=== PATIENT | female | born 1990 | race Caucasian/White ===

== ENCOUNTER 2018-02-24 19:14 | Emergency (ER) | payer BC ==
[~2018-02-24] VITALS: Ht 172.7 cm; Wt 99.8 kg
[~2018-02-24 19:14] MED LIST: DICY10CA26 PO; [UNRECOGNIZED DRUG - REMARK]
--- NOTE | 2018-02-24 19:49 | ED Headache ---
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 Pt had fever on evening up to 101.7 but remains afebrile today. Pt has pain behind eyes and posterior head down the neck. Nursing Sepsis Screen: No Definite Risk Source: patient History of Present Illness Date Seen by Provider: Feb 24, 2018 Time Seen by Provider: 19:45 Initial Comments The patient is a 27-year-old white female diagnosed with pseudotumor cerebri in 2012. She has had 8 revisions of a lumbar peritoneal shunt. The last of these was done on Tuesday of this week. She reports that as of Tuesday she was running a low-grade fever and having a headache. She has no fever today but continues to have the headache which at times is explosive. She is had this experience before when the shunt was dislodged. Timing/Duration: 1 week Severity/Quality: moderate Location: global Allergies and Home Medications Allergies Coded Allergies: No Known Drug Allergies (Unverified , 01/26/10) Home Medications Dicyclomine Hcl 10 Mg Capsule, 1 EACH PO ACHS Prescribed by: INGRIS LEDESMA on 12/18/13 1440 Patient Home Medication List Home Medication List Reviewed: Yes Review of Systems Constitutional: see HPI Eyes: Blurred Vision Ears, Nose, Mouth, Throat: no symptoms reported Respiratory: no symptoms reported Cardiovascular: no symptoms reported Gastrointestinal: no symptoms reported Genitourinary: no symptoms reported Musculoskeletal: no symptoms reported Skin: no symptoms reported Psychiatric/Neurological: No Symptoms Reported Past Afeeocp-Mhbrif-Lrgdlh Hx Patient Social History Alcohol Use: Rarely Uses Recreational Drug Use: No Smoking Status: Former Smoker Type Used: Cigarettes Recent Foreign Travel: No Contact w/Someone Who Travel: No Recent Infectious Disease Expo: No Recent Hopitalizations: No Seasonal Allergies Seasonal Allergies: No Past Medical History Surgeries: Yes ( shunt-pseudo tumor cerebri, bariatric surgery) Brain Shunt Respiratory: No Cardiac: No Neurological: No Reproductive Disorders: No Sexually Transmitted Disease: No Gastrointestinal: No Musculoskeletal: No Endocrine: No HEENT: No Cancer: No Psychosocial: No Integumentary: No Blood Disorders: No Adverse Reaction/Blood Tranf: No Physical Exam Vital Signs Vital Signs - First Documented 02/24/18 19:21 Temp 97.9 Pulse 72 Resp 20 B/P (MAP) 133/85 (101) Pulse Ox 100 O2 Delivery Room Air Capillary Refill : Less Than 3 Seconds Height, Weight, BMI Height: 5'8" Weight: 220lbs. oz. 99.604719bk; 42.57 BMI Method:Stated General Appearance: mild distress HEENT: PERRL/EOMI Neck: full range of motion Cardiovascular: normal peripheral pulses, regular rate, rhythm, no edema, no gallop, no JVD, no murmur Respiratory: chest non-tender, lungs clear, normal breath sounds, no respiratory distress, no accessory muscle use Gastrointestinal: normal bowel sounds, non tender, soft, no organomegaly, no pulsatile mass Extremities: normal range of motion, non-tender, normal inspection, no pedal edema, no calf tenderness, normal capillary refill, pelvis stable Psychiatric: alert, oriented x 3 Crainal Nerves: normal hearing, normal speech, PERRL Coordination/Gait: normal finger to nose, normal gait Motor/Sensory: no motor deficit, no sensory deficit Skin: normal color, warm/dry Lymphatic: no adenopathy Comments There is a 6 cm vertically oriented fresh incision in the lower lumbar area. There is a palpable shunt angling across the left pelvis to the abdomen. Progress/Results/Core Measures Results/Orders Lab Results Laboratory Tests Test 02/24/18 19:45 02/24/18 19:50 Range/Units Urine Color YELLOW Urine Clarity VERY CLOUDY H Urine pH 6 5-9 Urine Specific [place] 1.025 H 1.016-1.022 Urine Protein 2+ H NEGATIVE Urine Glucose (UA) NEGATIVE NEGATIVE Urine Ketones 2+ H NEGATIVE Urine Nitrite NEGATIVE NEGATIVE Urine Bilirubin NEGATIVE NEGATIVE Urine Urobilinogen 12 H NORMAL MG/DL Urine Leukocyte Esterase 3+ H NEGATIVE Urine RBC (Auto) 1+ H NEGATIVE Urine RBC NONE /HPF Urine WBC 2-5 /HPF Urine Crystals PRESENT H /LPF Urine Calcium Oxalate Crystals LARGE H /LPF Urine Bacteria LARGE H /HPF Urine Casts NONE /LPF Urine Mucus LARGE H /LPF Urine Culture Indicated YES White Blood Count 10.6 4.3-11.0 10^3/uL Red Blood Count 3.98 L 4.35-5.85 10^6/uL Hemoglobin 12.5 11.5-16.0 G/DL Hematocrit 36 35-52 % Mean Corpuscular Volume 91 80-99 FL Mean Corpuscular Hemoglobin 31 25-34 PG Mean Corpuscular Hemoglobin Concent 35 32-36 G/DL Red Cell Distribution Width 12.5 10.0-14.5 % Platelet Count 307 130-400 10^3/uL Mean Platelet Volume 10.7 H 7.4-10.4 FL Neutrophils (%) (Auto) 58 42-75 % Lymphocytes (%) (Auto) 34 12-44 % Monocytes (%) (Auto) 7 0-12 % Eosinophils (%) (Auto) 1 0-10 % Basophils (%) (Auto) 0 0-10 % Neutrophils # (Auto) 6.1 1.8-7.8 X 10^3 Lymphocytes # (Auto) 3.6 1.0-4.0 X 10^3 Monocytes # (Auto) 0.8 0.0-1.0 X 10^3 Eosinophils # (Auto) 0.1 0.0-0.3 10^3/uL Basophils # (Auto) 0.0 0.0-0.1 10^3/uL Sodium Level 140 135-145 MMOL/L Potassium Level 4.1 3.6-5.0 MMOL/L Chloride Level 107 98-107 MMOL/L Carbon Dioxide Level 23 21-32 MMOL/L Anion Gap 10 5-14 MMOL/L Blood Urea Nitrogen 8 7-18 MG/DL Creatinine 0.66 0.60-1.30 MG/DL Estimat Glomerular Filtration Rate > 60 BUN/Creatinine Ratio 12 Glucose Level 90 70-105 MG/DL Calcium Level 9.7 8.5-10.1 MG/DL Total Bilirubin 0.5 0.1-1.0 MG/DL Aspartate Amino Transf (AST/SGOT) 32 5-34 U/L Alanine Aminotransferase (ALT/SGPT) 31 0-55 U/L Alkaline Phosphatase 71 40-136 U/L Total Protein 6.8 6.4-8.2 GM/DL Albumin 4.0 3.2-4.5 GM/DL My Orders Orders - RYNE REY MD Cbc With Automated Diff (02/24/18 19:33) Comprehensive Metabolic Panel (02/24/18 19:33) Ua Culture If Indicated (02/24/18 19:33) Urine Bedside (02/24/18 19:54) Ct Pelvis Wo (02/24/18 19:58) Urine Culture (02/24/18 19:45) Ns Iv 1000 Ml (Sodium Chloride 0.9%) (02/24/18 20:45) Vital Signs/I&O 02/24/18 19:21 Temp 97.9 Pulse 72 Resp 20 B/P (MAP) 133/85 (101) Pulse Ox 100 O2 Delivery Room Air Blood Pressure Mean: 101 Departure Communication (Admissions) 2120. The CT films were reviewed by me and Dr. Valentin. It was our conclusion that the catheter appeared to be in appropriate position. The reading from the radiology service also agreed with this opinion. I then placed a call to [facility] as she had her surgery there. After giving history to the transfer nurse, she was seen in correspondence with neurosurgery. They also felt that her device was in appropriate position. Her urine specific gravity was elevated at 1.025 and therefore she is thought to be dehydrated. The plan from the point of view would be that she return for an appointment on Wednesday 02/28. She is agreeable to this. 2128: Dr. Mccray of the neurosurgery service called back and reiterated the points as above. Impression Primary Impression: spinal headache Disposition: HOME, SELF-CARE Condition: Stable/Unchanged Departure-Patient Inst. Decision time for Depature: 21:21 Referrals: RAJ HOOKER DO (PCP/Family) Primary Care Physician Add. Discharge Instructions: All discharge instructions reviewed with patient and/or family. Voiced understanding. Rest. Aggressive rehydration. Appointment at [facility] on 02/28 Return if problems RYNE REY MD Feb 24, 2018 19:49
[2018-02-24 19:51] LABS: BILIRUBIN,URINE NEGATIVE (NEGATIVE); CLARITY,URINE VERY CLOUDY; COLOR,URINE YELLOW; GLUCOSE, URINE (UA) NEGATIVE (NEGATIVE); KETONES,URINE 2+ (NEGATIVE); LEUKOCYTE ESTERASE ,URINE 3+ (NEGATIVE); NITRITE,URINE NEGATIVE (NEGATIVE); PH,URINE 6 (5-9); PROTEIN,URINE 2+ (NEGATIVE); UROBILINOGEN,URINE 12 MG/DL (NORMAL)
[2018-02-24 20:01] LABS: BASOPHILS % (AUTO) 0 % (0-10); EOSINOPHILS # (AUTO) 0.1 10^3/uL (0.0-0.3); EOSINOPHILS % (AUTO) 1 % (0-10); HEMATOCRIT 36 % (35-52); HEMOGLOBIN 12.5 G/DL (11.5-16.0); LYMPHOCYTES # (AUTO) 3.6 X 10^3 (1.0-4.0); LYMPHOCYTES % (AUTO) 34 % (12-44); MEAN CORPUSCULAR HEMOGLOBIN 31 PG (25-34); MEAN CORPUSCULAR HGB CONC 35 G/DL (32-36); MEAN CORPUSCULAR VOLUME 91 FL (80-99); MEAN PLATELET VOLUME 10.7 FL (7.4-10.4); MONOCYTES # (AUTO) 0.8 X 10^3 (0.0-1.0); MONOCYTES % (AUTO) 7 % (0-12); NEUTROPHILS # (AUTO) 6.1 X 10^3 (1.8-7.8); NEUTROPHILS % (AUTO) 58 % (42-75); PLATELET COUNT 307 10^3/uL (130-400); RED BLOOD COUNT 3.98 10^6/uL (4.35-5.85); RED CELL DISTRIBUTION WIDTH 12.5 % (10.0-14.5); WHITE BLOOD COUNT 10.6 10^3/uL (4.3-11.0)
[2018-02-24 20:04] LABS: BACTERIA,URINE LARGE /HPF; CALCIUM OXALATE CRYSTALS,UR LARGE /LPF
[2018-02-24 20:25] LABS: ALANINE AMINOTRANSFERASE 31 U/L (0-55); ALKALINE PHOSPHATASE 71 U/L (40-136); BILIRUBIN,TOTAL 0.5 MG/DL (0.1-1.0); BUN/CREATININE RATIO 12; CALCIUM 9.7 MG/DL (8.5-10.1); CARBON DIOXIDE 23 MMOL/L (21-32); CHLORIDE 107 MMOL/L (98-107); CREATININE SERUM 0.66 MG/DL (0.60-1.30); GFR ESTIMATED > 60; GLUCOSE 90 MG/DL (70-105); POTASSIUM 4.1 MMOL/L (3.6-5.0); SODIUM 140 MMOL/L (135-145); TOTAL PROTEIN 6.8 GM/DL (6.4-8.2)
[2018-02-24] MEDS ORDERED: NS IV 1000 ML 1,000 ML IV SCH (20:45)
--- NOTE | 2018-02-24 20:58 | Diagnostic Imaging Report ---
Clinical indication: Patient shunt revision surgery four days ago. Patient feeling pressure in head since then. Exam: CT scan of the pelvis performed without IV contrast with sagittal and coronal reformatted images. Comparison: CT scan of the abdomen and pelvis performed with IV contrast dated 12/18/2013. Findings: There is a metallic device overlying the right of midline aspect of the lower back deep subcutaneous fat at the level of the L3-L4 level. There is drain tubing extending through the L2-L3 interlaminar region and is incompletely visualized as it extends superiorly. There is also a component of the tubing extending along the left lateral aspect of the abdomen and entering the peritoneal region through the left side of the abdomen anteriorly. The distal aspect of the drain is seen in the pelvis. There is a small amount of free fluid in the pelvis seen. There is no definite CSFoma seen. There is no significant fat stranding or free air in the pelvis, as visualized. There is minimal spurring of the lower lumbar spine. There is a small fluid collection, posteriorly, about this metallic device in the deep subcutaneous fat of the lower back area. There is also some peripheral thickening noted. Given history of recent surgery, this may represent a seroma. There is density of the soft tissue extending posteriorly to the skin. There is suspected dependent edema in the posterior lower lumbar fat soft tissue. IMPRESSION: Lumbar peritoneal shunt drain seen with components appearing in good position. There is a small amount of fluid around the drain valve region suspected to represent seroma. Dictated by: Dictated on workstation # [id number]
[2018-02-24 21:30] VITALS: BP 125/80
--- OUTSIDE RECORDS SUMMARY | 2018-02-26 07:03 | XMS REPORT ---
Author Author NATALI ZHU Organization [facility] Address [address] [place] [address] Care Team Providers Care Water And Fire Technician Name Role Phone NATALI ZHU Unavailable PROBLEMS Type Condition ICD9-CM Code DUN15-XW Code Onset Dates Condition Status SNOMED Code Problem Acute seasonal allergic rhinitis, unspecified trigger J30.2 Active [id number] ALLERGIES No Known Allergies ENCOUNTERS Encounter Location Date Diagnosis [facility] [id number] [place] [phone] December, Chronic intractable headache, unspecified headache type R51 [facility] [place] [id number] [place] [phone] Aug, Encounter for immunization Z23 and Laceration of left index finger without foreign body without damage to nail, initial encounter S61.211A [facility] [address] [place] [phone] Jun, Acute seasonal allergic rhinitis, unspecified trigger J30.2 IMMUNIZATIONS Vaccine Route Administration Date Status TDAP (BOOSTRIX) IM Intramuscular Aug 25, 2017 Administered SOCIAL HISTORY Never Assessed 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 pt is unsure on her last tetanus shot. david PLAN OF CARE Activity Details Follow Up 10 days Reason:suture removal VITAL SIGNS Height 68 in 2017-08-25 Weight 298.8 lbs 2017-08-25 Temperature 98.4 degrees Fahrenheit 2017-08-25 Heart Rate 66 bpm 2017-08-25 Respiratory Rate 20 2017-08-25 BMI 45.43 kg/m2 2017-08-25 Blood pressure systolic 128 mmHg 2017-08-25 Blood pressure diastolic 78 mmHg 2017-08-25 MEDICATIONS Medication Instructions Dosage Frequency Start Date End Date Duration Status Prilosec OTC 20 MG Orally Once a day 1 tablet 24h Active Flonase 50 MCG/ACT Nasally Once a day 1 spray in each nostril 24h 17 Jun, 2017 30 day(s) Not-Taking RESULTS No Results PROCEDURES Procedure Date Ordered Result Body Site LACERATION REPAIR 2017-08-25 N/A TDAP (BOOSTRIX) Aug 25, 2017 LACERATION >2CM Aug 25, 2017 SINGLE IMMUNIZATION ADMIN Aug 25, 2017 INSTRUCTIONS MEDICATIONS ADMINISTERED No Known Medications MEDICAL (GENERAL) HISTORY Type Description Date Medical History pseudotumor cerebri Surgical History Mini Gastric Bypass 07/11/2017 Surgical History LP shunt 2012, [facility] Hospitalization History Post Op 07/11/2017
--- OUTSIDE RECORDS SUMMARY | 2018-02-26 07:05 | XMS REPORT | Continuity of Care Document ---
Author Author [facility] Organization [facility] Address Unknown Phone Unavailable Support Name Relationship Address Phone DONG MORGAN Next Of Kin [address], [place] [address] Insurance Providers Payer Name Policy Number Subscriber Name Relationship [facility] [id number] Dong Morgan 03 Mother Advance Directives Directive Response Recorded Date Advance Directives N 01/04/13 1:31pm Health Care Power of Recording Studio Set Up Worker N 01/04/13 1:31pm Organ Donor N 01/04/13 1:31pm Problems No Known Problems or Medical conditions. Allergies, Adverse Reactions, Alerts Allergen Type Severity Reaction Last Updated No Known Drug Allergies 01/26/10 Medications Medication Dose Units Route Sig Qty Days [BCP Pills] Response Recorded Date/Time Status not known Unknown Results No Known Relevant Diagnostic Tests, Laboratory Data and/or Discharge Summary. Procedures Procedure Code Date REMOVAL OF TONSILS 70196 01/29/10 SPINAL FLUID TAP DIAGNOSTIC 84251 Encounters Encounter Location Date/Time Departed Emergency Room [facility] 04/08 11:32am
--- OUTSIDE RECORDS SUMMARY | 2018-02-26 07:07 | XMS REPORT | Continuity of Care Document ---
Author Author [facility] Organization [facility] Address Unknown Phone Unavailable Allergies Active Description Code Type Severity Reaction Onset Reported/Identified Relationship to Patient Clinical Status Yes No Known Drug Allergies [id number] Drug Allergy Unknown N/A 01/26/2010 Yes No Known Allergies NKA Miscellaneous Allergy Unknown N/A 03/04/2016 Medications There is no data. Problems Date Dx Coded Attending Type Code Diagnosis Diagnosed By 05/30/2013 RAJ HOOKER DO Ot 780.54 HYPERSOMNIA, UNSPECIFIED 05/30/2013 RAJ HOOKER DO Ot 786.09 RESPIRATORY ABNORM NEC 12/18/2013 INGRIS LEDESMA TURF SALES PERSON Ot 787.91 DIARRHEA 12/18/2013 INGRIS LEDESMA TURF SALES PERSON Ot 789.09 ABDOMINAL PAIN, OTHER SPECIFIED SITE 03/04/2016 Other S80.02XA 03/04/2016 Other S93.412A 03/04/2016 Other W01.0XXA 03/04/2016 Other Z23 Procedures There is no data. Results Test Result Range Complete urinalysis with reflex to culture - 02/24/18 19:45 Urine color determination YELLOW NRG Urine clarity determination VERY CLOUDY NRG Urine pH measurement by test strip 6 5-9 Specific gravity of urine by test strip 1.025 1.016- 1.022 Urine protein assay by test strip, semi-quantitative 2+ NEGATIVE Urine glucose detection by automated test strip NEGATIVE NEGATIVE Erythrocytes detection in urine sediment by light microscopy 1+ NEGATIVE Urine ketones detection by automated test strip 2+ NEGATIVE Urine nitrite detection by test strip NEGATIVE NEGATIVE Urine total bilirubin detection by test strip NEGATIVE NEGATIVE Urine urobilinogen measurement by automated test strip (mass/volume) 12 mg/dL NORMAL Urine leukocyte esterase detection by dipstick 3+ NEGATIVE Automated urine sediment erythrocyte count by microscopy (number/high power field) NONE NRG Automated urine sediment leukocyte count by microscopy (number/high power field ) [HPF] NRG Bacteria detection in urine sediment by light microscopy LARGE NRG Crystals detection in urine sediment by light microscopy PRESENT NRG Casts detection in urine sediment by light microscopy NONE NRG Mucus detection in urine sediment by light microscopy LARGE NRG Complete urinalysis with reflex to culture YES NRG Calcium oxalate crystals detection in urine sediment by light microscopy LARGE NRG Bacterial urine culture - 02/24/18 19:45 Bacterial urine culture RML NRG COLONY COUNT . NRG Complete blood count (CBC) with automated white blood cell (WBC) differential - 02/24/18 19:50 Blood leukocytes automated count (number/volume) 10.6 10*3/uL 4.3-11.0 Blood erythrocytes automated count (number/volume) 3.98 10*6/uL 4.35-5.85 Venous blood hemoglobin measurement (mass/volume) 12.5 g/dL 11.5-16.0 Blood hematocrit (volume fraction) 36 % 35-52 Automated erythrocyte mean corpuscular volume 91 [foz_us] 80-99 Automated erythrocyte mean corpuscular hemoglobin (mass per erythrocyte) 31 pg 25-34 Automated erythrocyte mean corpuscular hemoglobin concentration measurement ( mass/volume) 35 g/dL 32-36 Automated erythrocyte distribution width ratio 12.5 % 10.0-14.5 Automated blood platelet count (count/volume) 307 10*3/uL 130-400 Automated blood platelet mean volume measurement 10.7 [foz_us] 7.4-10.4 Automated blood neutrophils/100 leukocytes 58 % 42-75 Automated blood lymphocytes/100 leukocytes 34 % 12-44 Blood monocytes/100 leukocytes 7 % 0-12 Automated blood eosinophils/100 leukocytes 1 % 0-10 Automated blood basophils/100 leukocytes 0 % 0-10 Blood neutrophils automated count (number/volume) 6.1 10*3 1.8-7.8 Blood lymphocytes automated count (number/volume) 3.6 10*3 1.0-4.0 Blood monocytes automated count (number/volume) 0.8 10*3 0.0-1.0 Automated eosinophil count 0.1 10*3/uL 0.0-0.3 Automated blood basophil count (count/volume) 0.0 10*3/uL 0.0-0.1 Comprehensive metabolic panel - 02/24/18 19:50 Serum or plasma sodium measurement (moles/volume) 140 mmol/L 135-145 Serum or plasma potassium measurement (moles/volume) 4.1 mmol/L 3.6-5.0 Serum or plasma chloride measurement (moles/volume) 107 mmol/L 98-107 Carbon dioxide 23 mmol/L 21-32 Serum or plasma anion gap determination (moles/volume) 10 mmol/L 5-14 Serum or plasma urea nitrogen measurement (mass/volume) 8 mg/dL 7-18 Serum or plasma creatinine measurement (mass/volume) 0.66 mg/dL 0.60-1.30 Serum or plasma urea nitrogen/creatinine mass ratio 12 NRG Serum or plasma creatinine measurement with calculation of estimated glomerular filtration rate > NRG Serum or plasma glucose measurement (mass/volume) 90 mg/dL 70-105 Serum or plasma calcium measurement (mass/volume) 9.7 mg/dL 8.5-10.1 Serum or plasma total bilirubin measurement (mass/volume) 0.5 mg/dL 0.1-1.0 Serum or plasma alkaline phosphatase measurement (enzymatic activity/volume) 71 U/L 40-136 Serum or plasma aspartate aminotransferase measurement (enzymatic activity/ volume) 32 U/L 5-34 Serum or plasma alanine aminotransferase measurement (enzymatic activity/volume ) 31 U/L 0-55 Serum or plasma protein measurement (mass/volume) 6.8 g/dL 6.4-8.2 Serum or plasma albumin measurement (mass/volume) 4.0 g/dL 3.2-4.5 Encounters ACCT No. Visit Date/Time Discharge Status Pt. Type Provider Facility Loc./Unit Complaint [id number] 02/24/2018 19:16:00 02/24/2018 21:30:00 DIS Emergency RYNE REY MD [facility] ER POST OP/HEAD PRESSURE/ FEVER [id number] 12/18/2013 12:57:00 12/18/2013 14:40:00 DIS Emergency INGRIS LEDESMA APRN [facility] ER UPPER ABD/RIGHT RIB/ SHOULDER PAIN [id number] 05/29/2013 20:09:00 05/30/2013 06:35:00 DIS Outpatient RAJ HOOKER DO [facility] SLEEP SNORING, EXCESSIVE DAYTIME SLEEPINESS [id number] 01/04/2013 12:15:00 01/04/2013 23:59:59 CLS Outpatient [id number] 01/03/2013 07:50:00 01/03/2013 23:59:59 CLS Outpatient [id number] 12/29/2012 09:29:00 12/29/2012 23:59:59 CLS Outpatient [id number] 12/21/2017 17:00:00 12/21/2017 23:59:59 CLS Outpatient HAIR HAMILTON LAC [facility] [id number] 11/03/2015 16:01:00 11/03/2015 23:59:59 CLS Outpatient Telma Travis APRN [facility] OFFICE [id number] 03/04/2016 19:55:00 Document Registration
== END 2018-02-24 21:30 | disposition home or self-care (01) ==
LOC: EDUNIT# 19:14 → ER 19:16
DX: G97.1 Other reaction to spinal and lumbar puncture (principal); Z98.890 Other specified postprocedural states; Z87.891 Personal history of nicotine dependence
CPT/HCPCS: 36415; 72192; 80053; 81000; 84703; 85025; 87088

== ENCOUNTER 2018-04-19 10:01 | Emergency (ER) | payer BC ==
[~2018-04-19] VITALS: Ht 172.7 cm; Wt 93.9 kg
--- OUTSIDE RECORDS SUMMARY | 2018-04-19 10:07 | XMS REPORT ---
Author Author ANUPAM MCINTYRE Organization [facility] Address [address] [place] [address] Care Team Providers Care Small Order Cutter Name Role Phone ANUPAM MCINTYRE Unavailable PROBLEMS Type Condition ICD9-CM Code PXW33-CG Code Onset Dates Condition Status SNOMED Code Problem Acute seasonal allergic rhinitis, unspecified trigger J30.2 Active [id number] ALLERGIES No Known Allergies ENCOUNTERS Encounter Location Date Diagnosis [facility] [address] [place], [place] [id number] [place] [phone] December, Chronic intractable headache, unspecified headache type R51 [facility] [address] [place], [place] [id number] [place] [phone] Aug, Encounter for immunization Z23 and Laceration of left index finger without foreign body without damage to nail, initial encounter S61.211A [facility] [address] [place] [phone] Jun, Acute seasonal allergic rhinitis, unspecified trigger J30.2 IMMUNIZATIONS Vaccine Route Administration Date Status TORADOL (IM) 60 MG/2ML (UP TO 15 MG) IM Intramuscular December 21, 2017 Administered SOCIAL HISTORY Never Assessed REASON FOR VISIT Migraine for the past 2 weeks- [facility] Activity Details Follow Up 1 Week Reason:headaches VITAL SIGNS Height 68 in 2017-12-21 Weight 241.0 lbs 2017-12-21 Temperature 98.3 degrees Fahrenheit 2017-12-21 Heart Rate 64 bpm 2017-12-21 Respiratory Rate 22 2017-12-21 BMI 36.64 kg/m2 2017-12-21 Blood pressure systolic 106 mmHg 2017-12-21 Blood pressure diastolic 70 mmHg 2017-12-21 MEDICATIONS Medication Instructions Dosage Frequency Start Date End Date Duration Status Flonase Allergy Relief 50 MCG/ACT Nasally Once a day 1 spray in each nostril 24h Active RESULTS No Results PROCEDURES Procedure Date Ordered Result Body Site TORADOL (IM) 60 MG/2ML (UP TO 15 MG) December 21, 2017 THER/PROPH/DIAG INJ, SC/IM December 21, 2017 INSTRUCTIONS MEDICATIONS ADMINISTERED No Known Medications MEDICAL (GENERAL) HISTORY Type Description Date Medical History pseudotumor cerebri Surgical History Mini Gastric Bypass 07/11/2017 Surgical History LP shunt 2012, [facility] Hospitalization History Post Op 07/11/2017
--- OUTSIDE RECORDS SUMMARY | 2018-04-19 10:09 | XMS REPORT | Continuity of Care Document ---
Author Author [facility] Organization [facility] Address Unknown Phone Unavailable Allergies Active Description Code Type Severity Reaction Onset Reported/Identified Relationship to Patient Clinical Status Yes No Known Drug Allergies [id number] Drug Allergy Unknown N/A 01/26/2010 Yes No Known Allergies NKA Miscellaneous Allergy Unknown N/A 03/04/2016 Medications There is no data. Problems Date Dx Coded Attending Type Code Diagnosis Diagnosed By 05/30/2013 RAJ HOOKER DO Ot 780.54 HYPERSOMNIA, UNSPECIFIED 05/30/2013 RAJ HOOKER DO Ot 786.09 RESPIRATORY ABNORM NEC 12/18/2013 INGRIS LEDESMA MUD ANALYSIS WELL LOGGING OPERATOR Ot 787.91 DIARRHEA 12/18/2013 INGRIS LEDESMA MUD ANALYSIS WELL LOGGING OPERATOR Ot 789.09 ABDOMINAL PAIN, OTHER SPECIFIED SITE 03/04/2016 Other S80.02XA 03/04/2016 Other S93.412A 03/04/2016 Other W01.0XXA 03/04/2016 Other Z23 02/24/2018 RYNE REY MD Ot G97.1 OTHER REACTION TO SPINAL AND LUMBAR PUNC 02/24/2018 RYNE REY MD Ot R51 HEADACHE 02/24/2018 RYNE REY MD Ot Z87.891 PERSONAL HISTORY OF NICOTINE DEPENDENCE 02/24/2018 RYNE REY MD Ot Z98.890 OTHER SPECIFIED POSTPROCEDURAL STATES Procedures There is no data. Results Test [...] culture - 02/24/18 19:45 Bacterial urine culture SEE COMMEN NRG COLONY COUNT . NRG Complete blood [...] Status Pt. Type Provider Facility Loc./Unit Complaint [id number] 02/24/2018 19:16:00 02/24/2018 21:30:00 DIS Emergency RYNE REY MD [facility] ER POST OP/HEAD PRESSURE/ FEVER [id number] 12/18/2013 12:57:00 12/18/2013 14:40:00 DIS Emergency INGRIS LEDESMA APRN [facility] ER UPPER ABD/RIGHT RIB/ SHOULDER PAIN [id number] 05/29/2013 20:09:00 05/30/2013 06:35:00 DIS Outpatient RAJ HOOKER DO [facility] SLEEP SNORING, EXCESSIVE DAYTIME SLEEPINESS [id number] 01/04/2013 12:15:00 01/04/2013 23:59:59 CLS Outpatient [id number] 01/03/2013 07:50:00 01/03/2013 23:59:59 CLS Outpatient [id number] 12/29/2012 09:29:00 12/29/2012 23:59:59 CLS Outpatient [id number] 12/21/2017 17:00:00 12/21/2017 23:59:59 CLS Outpatient ALFONSO HAIR [facility] [id number] 11/03/2015 16:01:00 11/03/2015 23:59:59 CLS Outpatient Telma Travis [facility] OFFICE [id number] 03/04/2016 19:55:00 Document Registration
--- NOTE | 2018-04-19 10:44 | ED Back Pain ---
General Chief Complaint: Back Problems Stated Complaint: BACK INCISION OPENED UP--SPINAL FLUID LEAKING Nursing Triage Note: PT STATES HAVING PSEUDO TUMOR CEREBRI FOR ABOUT 5 YRS, PT HAD A SHUNT REMOVED FROM HER BACK ON 02/20/18 AND HAS HAD A KNOT AT THE INCISION, TODAY WHILE GETTING INTO HER CAR IT OPENED AND BEGAN LEAKING FLUID. NOT LEAKING AT TRIAGE, GAUZE BANDAGE APPLIED. PT STATES HAVING A HEADACHE RATED AT 3. Nursing Sepsis Screen: No Definite Risk Source of Information: Patient Exam Limitations: No Limitations History of Present Illness Date Seen by Provider: Apr 19, 2018 Time Seen by Provider: 10:40 Initial Comments To ER with reports of leaking incision. She's got a history of pseudotumor cerebri and has had a shunt placed in the lumbar spine. She had bariatric surgery and no longer had an issue with headaches and pseudotumor cerebri. She had a shunt removed on 02/20/18. Since then she's had a bulging area over the lumbar spine. Today while twisting to get into her car she felt her pants and shirt get wet in this area and noticed that the bulge was gone. There is a persistent leak of clear fluid overlying the incision the lumbar spine. Location: Lumbar Spine Timing/Duration: 1-2 Days Severity: Moderate Pain/Injury Location: Back Associated Symptoms: No numbness in legs/feet, No tingling in legs/feet Allergies and Home Medications Allergies Coded Allergies: No Known Drug Allergies (Unverified , 01/26/10) Home Medications Dicyclomine Hcl 10 Mg Capsule, 1 EACH PO ACHS Prescribed by: INGRIS LEDESMA on 12/18/13 1440 Patient Home Medication List Home Medication List Reviewed: Yes Review of Systems Constitutional: see HPI; No chills, No fever EENTM: see HPI Respiratory: no symptoms reported Cardiovascular: no symptoms reported Genitourinary: no symptoms reported Musculoskeletal: see HPI, back pain Skin: no symptoms reported Psychiatric/Neurological: No Symptoms Reported Past Gqlhthj-Nkqong-Vxdwry Hx Patient Social History Alcohol Use: Rarely Uses Alcohol Beverage of Choice: Wine Recreational Drug Use: No Smoking Status: Current Someday Smoker Type Used: Cigarettes Recent Foreign Travel: No Contact w/Someone Who Travel: No Recent Infectious Disease Expo: No Recent Hopitalizations: No Seasonal Allergies Seasonal Allergies: No Past Medical History Surgeries: Yes (LP shunt-pseudo tumor cerebri, bariatric surgery) Adenoidectomy, Brain Shunt, Tonsillectomy Respiratory: No Cardiac: No Neurological: No : No Last Menstrual Period: Mar 28, 2018 Reproductive Disorders: No Sexually Transmitted Disease: No Gastrointestinal: No Musculoskeletal: No Endocrine: No HEENT: No Cancer: No Psychosocial: No Integumentary: No Blood Disorders: No Adverse Reaction/Blood Tranf: No Physical Exam Vital Signs Vital Signs - First Documented 04/19/18 10:10 Temp 98.8 Pulse 70 Resp 20 B/P (MAP) 126/84 (98) Pulse Ox 97 O2 Delivery Room Air Capillary Refill : Less Than 3 Seconds Height, Weight, BMI Height: 5'8.00" Weight: 207lbs. oz. 93.636215xw; 42.57 BMI Method:Stated General Appearance: No Apparent Distress, WD/WN HEENT: PERRL/EOMI, TMs Normal Neck: Full Range of Motion, Normal Inspection Respiratory: Normal Breath Sounds, No Accessory Muscle Use, No Respiratory Distress Gastrointestinal: Normal Bowel Sounds, Non Tender, Soft Extremity: Normal Capillary Refill, Normal Inspection Neurologic/Psychiatric: Alert, Oriented x3 Skin: Normal Color, Warm/Dry, Other (there is an incision over the middle of the lumbar spine. This is clean and without erythema. At the inferior portion of this incision there is a very small area that is open. Clear fluid is able to be expressed. This does not appear yellowish or reddish as with a seroma. The overlying skin shows no sign of infection) Progress/Results/Core Measures Results/Orders Lab Results Laboratory Tests Test 04/19/18 11:05 Range/Units White Blood Count 8.8 4.3-11.0 10^3/uL Red Blood Count 4.47 4.35-5.85 10^6/uL Hemoglobin 14.0 11.5-16.0 G/DL Hematocrit 41 35-52 % Mean Corpuscular Volume 91 80-99 FL Mean Corpuscular Hemoglobin 31 25-34 PG Mean Corpuscular Hemoglobin Concent 35 32-36 G/DL Red Cell Distribution Width 13.6 10.0-14.5 % Platelet Count 279 130-400 10^3/uL Mean Platelet Volume 11.3 H 7.4-10.4 FL Neutrophils (%) (Auto) 59 42-75 % Lymphocytes (%) (Auto) 32 12-44 % Monocytes (%) (Auto) 7 0-12 % Eosinophils (%) (Auto) 1 0-10 % Basophils (%) (Auto) 0 0-10 % Neutrophils # (Auto) 5.2 1.8-7.8 X 10^3 Lymphocytes # (Auto) 2.8 1.0-4.0 X 10^3 Monocytes # (Auto) 0.7 0.0-1.0 X 10^3 Eosinophils # (Auto) 0.1 0.0-0.3 10^3/uL Basophils # (Auto) 0.0 0.0-0.1 10^3/uL My Orders Orders - INGRIS LEDESMA APRN Ct Lumbar Spine W (04/19/18 10:38) Iohexol Injection (Omnipaque 350 Mg/Ml 1 (04/19/18 10:45) Cbc With Automated Diff (04/19/18 11:31) Vital Signs/I&O 04/19/18 04/19/18 10:10 12:33 Temp 98.8 98.8 Pulse 70 59 Resp 20 20 B/P (MAP) 126/84 (98) 130/61 (98) Pulse Ox 97 98 O2 Delivery Room Air Blood Pressure Mean: 98 Departure Communication (Admissions) 1228- I myself am waiting on the [facility] to call back. The patient states that Dr. Owens office just called her and told her to head on up and he would see her in the clinic this afternoon. Impression Primary Impression: Lumbar surgical wound fluid collection Disposition: 01 HOME, SELF-CARE Condition: Stable Departure-Patient Inst. Decision time for Depature: 12:29 Referrals: RAJ HOOKER DO (PCP/Family) Primary Care Physician Patient Instructions: NO INSTRUCTIONS GIVEN Add. Discharge Instructions: Directly to [facility] as scheduled. All discharge instructions reviewed with patient and/or family. Voiced understanding. INGRIS LEDESMA APRN Apr 19, 2018 10:44
[2018-04-19] MEDS ORDERED: IOHEXOL 350 MG/ML 100 ML (OMNIPAQUE 350) VIAL IV ONE (10:45)
[2018-04-19 11:37] LABS: BASOPHILS % (AUTO) 0 % (0-10); EOSINOPHILS # (AUTO) 0.1 10^3/uL (0.0-0.3); EOSINOPHILS % (AUTO) 1 % (0-10); HEMATOCRIT 41 % (35-52); LYMPHOCYTES # (AUTO) 2.8 X 10^3 (1.0-4.0); LYMPHOCYTES % (AUTO) 32 % (12-44); MEAN CORPUSCULAR HEMOGLOBIN 31 PG (25-34); MEAN CORPUSCULAR HGB CONC 35 G/DL (32-36); MEAN CORPUSCULAR VOLUME 91 FL (80-99); MEAN PLATELET VOLUME 11.3 FL (7.4-10.4); MONOCYTES # (AUTO) 0.7 X 10^3 (0.0-1.0); MONOCYTES % (AUTO) 7 % (0-12); NEUTROPHILS # (AUTO) 5.2 X 10^3 (1.8-7.8); NEUTROPHILS % (AUTO) 59 % (42-75); PLATELET COUNT 279 10^3/uL (130-400); RED BLOOD COUNT 4.47 10^6/uL (4.35-5.85); RED CELL DISTRIBUTION WIDTH 13.6 % (10.0-14.5); WHITE BLOOD COUNT 8.8 10^3/uL (4.3-11.0)
--- NOTE | 2018-04-19 12:02 | Diagnostic Imaging Report ---
PROCEDURE: CT lumbar spine with contrast. TECHNIQUE: Multiple contiguous axial images were obtained through the lumbar spine after the intrathecal administration of contrast. Sagittal and coronal reformations were then performed. INDICATION: Patient is status post shunt removal from the spine on 02/20/2018. Patient complains of leaking of fluid. FINDINGS: There is a fluid collection identified in the subcutaneous tissues at the level of L2-L3, at the midline. This measures 3.5 cm AP by 6.8 cm transverse by 6.7 cm cephalocaudal. There is tubing coiled within the fluid collection. There is also a metallic density located within the collection which may represent a portion of the stimulator. No intraspinal component of the tubing is identified. The tubing does exit the fluid collection to the left and is seen within the subcutaneous tissues. This may represent the same tubing that is seen in an intraperitoneal location within the abdomen. No other fluid collections are identified. Bony structures are unremarkable apart from mild generalized degenerative disc disease. No fractures are seen. IMPRESSION: Subcutaneous fluid collection at the level of L2-L3 at the midline containing coiled tubing as well as an indeterminate metallic density, perhaps a stimulator. Dictated by: Dictated on workstation # [id number]
[2018-04-19 12:33] VITALS: BP 130/61
== END 2018-04-19 12:31 | disposition home or self-care (01) ==
LOC: EDUNIT# 10:01 → ER 10:02
DX: G97.0 Cerebrospinal fluid leak from spinal puncture (principal); G93.2 Benign intracranial hypertension; F17.210 Nicotine dependence, cigarettes, uncomplicated; Z90.89 Acquired absence of other organs; Z98.84 Bariatric surgery status; Z98.890 Other specified postprocedural states
CPT/HCPCS: 36415; 72132; 85025

== ENCOUNTER 2018-09-18 06:46 | Outpatient (CLI) | payer BC ==
[~2018-09-18] VITALS: Ht 172.7 cm; Wt 93.9 kg
[2018-09-18] MEDS ORDERED: OMEP20TA33 PO (13:19)
[2018-09-20] MEDS ORDERED: OXYC1TAB87 PO (12:48)
== END 2018-09-18 13:24 | disposition home or self-care (01) ==
LOC: PREOP 06:46
PROVIDERS: ATTEND Obstetrics & Gynecology
DX: Z01.818 Encounter for other preprocedural examination (principal)

== ENCOUNTER 2018-09-20 11:24 | Day surgery (SDC) | payer BC ==
[~2018-09-20] VITALS: Ht 172.7 cm; Wt 93.9 kg
[~2018-09-20 11:24] MED LIST changes: +OMEP20TA33 PO
[2018-09-20 11:30] VITALS: BP 101/49
[2018-09-20] MEDS ORDERED: LACTATED RINGERS 1,000 ML IV PRN (11:36)
[2018-09-20] MEDS ORDERED: ceFAZolin INJECTION 1,000 MG in WATER (STERILE) FOR INJECTION 10 ML IV ONE (11:45)
[2018-09-20] MEDS ORDERED: fentaNYL INJECTION 100 MCG/2 ML AMP ONE (12:10)
[2018-09-20] MEDS ORDERED: MIDAZOLAM 2 MG/2 ML (VERSED) VIAL ONE (12:10)
[2018-09-20] MEDS ORDERED: proPOfol 200 MG/20 ML (DIPRIVAN) VIAL IV ONE ×2 (12:39→13:39)
[2018-09-20] MEDS ORDERED: SEVOFLURANE (ULTANE) 15 ML INHAL SOLN ONE (12:39)
[2018-09-20] MEDS ORDERED: ONDANSETRON 4 MG/2 ML (SDV) Z0FRAN ONE (12:39)
[2018-09-20] MEDS ORDERED: LIDOCAINE PF 2% 5 ML (XYLOCAINE) VIAL ONE (12:39)
[2018-09-20 12:43] LABS: BASOPHILS % (AUTO) 0 % (0-10); EOSINOPHILS # (AUTO) 0.1 10^3/uL (0.0-0.3); EOSINOPHILS % (AUTO) 1 % (0-10); HEMATOCRIT 40 % (35-52); HEMOGLOBIN 13.4 G/DL (11.5-16.0); LYMPHOCYTES % (AUTO) 36 % (12-44); MEAN CORPUSCULAR HEMOGLOBIN 31 PG (25-34); MEAN CORPUSCULAR HGB CONC 34 G/DL (32-36); MEAN CORPUSCULAR VOLUME 92 FL (80-99); MEAN PLATELET VOLUME 10.6 FL (7.4-10.4); MONOCYTES # (AUTO) 0.5 X 10^3 (0.0-1.0); MONOCYTES % (AUTO) 6 % (0-12); NEUTROPHILS # (AUTO) 4.8 X 10^3 (1.8-7.8); NEUTROPHILS % (AUTO) 57 % (42-75); PLATELET COUNT 231 10^3/uL (130-400); RED CELL DISTRIBUTION WIDTH 13.1 % (10.0-14.5); WHITE BLOOD COUNT 8.4 10^3/uL (4.3-11.0)
--- NOTE | 2018-09-20 12:45 | Progress Note-Pre Operative ---
Pre-Operative Progress Note H&P Reviewed The H&P was reviewed, patient examined and no changes noted. Date Seen by Provider: Sep 20, 2018 Time Seen by Provider: 12:45 Date H&P Reviewed: Sep 20, 2018 Time H&P Reviewed: 12:45 Pre-Operative Diagnosis: Menorrhagia/dysfunctional uterine bleeding/ intrauterine mass AV GODFREY MD Sep 20, 2018 12:45
--- NOTE | 2018-09-20 12:46 | Progress Note-Post Operative ---
Post-Operative Progess Note Surgeon (s)/Radio Assembler (s) Surgeon AV GODFREY MD Radio Assembler: n/a Pre-Operative Diagnosis Menorrhagia/dysfunctional uterine bleeding/intrauterine mass Post-Operative Diagnosis Same with pathology pending Procedure & Operative Findings Date of Procedure 09/20/18 Procedure Performed/Findings Hysteroscopy with directed biopsy and D&C Anesthesia Type GETA Estimated Blood Loss Estimated blood loss (mL): Minimal Specimens/Packing Specimens Removed Directed biopsy from endometrial cavity and endometrial curettings AV GODFREY MD Sep 20, 2018 12:46
[2018-09-20] MEDS ORDERED: OXYC1TAB87 PO (12:48)
[2018-09-20] MEDS ORDERED: D5 LR IV SOLUTION 1,000 ML IV SCH (12:49)
--- NOTE | 2018-09-20 12:49 | Discharge Instructions ---
Discharge Instructions Discharge Medications New, Converted or Re-Newed RX: RX on Chart Patient Instructions Patient Instructions: As directed Return to The Hospital For: As directed Activity & Diet Discharge Diet: No Restrictions Activity as Tolerated: No Orders-Post D/C & Referrals Follow Up Appt: Call to make follow up appt. for patient in 2 weeks. Activity: Rest for 24 hours, than as tolerated. Diet: As tolerated-Clear Liquids only if nauseated. shower or tub bathe as desired. No driving for 24 hours, no alcoholic beverages for 24 hours, and nothing per vagina (no tampons, douching, or intercourse) for 2 weeks. Patient to return to the clinic as soon as possible for: Temperature greater than 101F, Severe Pain, Foul discharge from incision or vagina, Excessive Bleeding (more than a period). AV GODFREY MD Sep 20, 2018 12:49
[2018-09-20] MEDS ORDERED: PROMETHAZINE INJ 25 MG/ML (PHENERGAN) AMP IM ONE (13:00)
[2018-09-20] MEDS ORDERED: ONDANSETRON 4 MG/2 ML (SDV) Z0FRAN IVP PRN ×2 (13:00→13:45)
[2018-09-20] MEDS ORDERED: oxyCODONE/APAP 5/325MG (PERCOCET 5) TABLET PO PRN (13:00)
[2018-09-20] MEDS ORDERED: ESTROGENS CONJ IV 25 MG/5 ML (PREMARIN) VIAL IVP ONE (13:00)
[2018-09-20] MEDS ORDERED: MEPERIDINE (DEMEROL) INJ 100 MG/ML IM ONE (13:00)
[2018-09-20] MEDS ORDERED: KETOROLAC 30 MG/ML VIAL IVP ONE (13:00)
[2018-09-20] MEDS ORDERED: KETOROLAC 30 MG/ML VIAL ONE (13:24)
[2018-09-20] MEDS ORDERED: WATER (STERILE) FOR INJECTION 10 ML ONE (13:25)
[2018-09-20] MEDS ORDERED: ESTROGENS CONJ IV 25 MG/5 ML (PREMARIN) VIAL ONE (13:25)
[2018-09-20] MEDS ORDERED: SUCCINYLCHOLINE INJ 100 MG/5 ML SYR ONE (13:39)
[2018-09-20] MEDS ORDERED: morphine INJ 10 MG/ML 1ML (SYR OR VIAL) IVP ONE (13:45)
[2018-09-20] MEDS ORDERED: MEPERIDINE (DEMEROL) INJ 50 MG/ML IVP ONE (13:45)
[2018-09-20] MEDS ORDERED: fentaNYL INJECTION 100 MCG/2 ML AMP IVP ONE (13:45)
[2018-09-20 14:25] VITALS: BP 114/84
--- NOTE | 2018-09-20 14:25 | NUR ---
TO AMB SURG FROM PAR PER CART. ALERT, RATES PELVIC CRAMPY PAIN 2. PO FLUIDS PROVIDED. V-PAD IN PLACE WITH SCANT AMOUNT OF BLOODY DRAINAGE. INFREQUENT NON-PRODUCTIVE COUGH, SAO2 99% ON ROOM AIR, TEMP 97.5.
--- NOTE | 2018-09-20 14:31 | Anesthesia-General Post-Op ---
General Significant Intra-Op Events Notes Refer to Anesthesia record. BONE GRINDER reported pt had yellow saliva/secretions in LMA initially which was exchanged with RSI to ETT. ETT was suctioned. Pt had no complaints in PACU, VSS. I advised pt of complications that may arise from aspiration. Advised pt to be mindful of any respiratory symptoms, fever, shortness of breath, cough etc in the next few days to weeks. Advised her to call her primary physician or return to hospital. Patient Condition Mental Status/LOC: Same as Preop Cardiovascular: Satisfactory Nausea/Vomiting: Absent Respiratory: Satisfactory Pain: Controlled Complications: Present Post Op Complications Complications None Follow Up Care/Instructions Patient Instructions See above, advised pt to follow up with primary and watch for S/S of pneumonia Anesthesia/Patient Condition Patient Condition Patient is doing well, no complaints, stable vital signs D/C home per [facility] Criteria: Yes ALICJA WALDRON CRNA Sep 20, 2018 14:31
[2018-09-20 14:55] VITALS: BP 108/66
[2018-09-20 15:25] VITALS: BP 106/53
--- NOTE | 2018-09-20 16:25 | NUR ---
HAS BEEN UP TO BR WITH ASSIST, ALERT, GAIT STEADY. NO CHANGE IN PAIN OR RESPIRATORY ASSESSMENTS. REMAINS AFEBRILE AND SCANT AMOUNT OF BLOODY DRAINAGE ON V-PAD. PAIN MED OFFERED THROUGHOUT RECOVERY, REFUSED BY PT. STATES "NO, I'M OK." REQUESTING DISMISSAL.
--- NOTE | 2018-09-20 23:28 | OPERATIVE REPORT ---
DATE OF SERVICE: 09/20/2018 PREOPERATIVE DIAGNOSES: Dysfunctional uterine bleeding, menorrhagia with intrauterine mass noted on ultrasound. POSTOPERATIVE DIAGNOSES: Dysfunctional uterine bleeding, menorrhagia with intrauterine mass noted on ultrasound with likely endometrial polyp and with pathology pending. OPERATIVE PROCEDURE: Hysteroscopy with directed biopsies and D and C. OPERATIVE DESCRIPTION: With the patient in supine position under satisfactory general anesthesia, she was repositioned in the dorsal lithotomy position in the [facility] stirrups and prepped and draped in the usual fashion for vaginal surgery. The patient had voided prior to coming to the OR. A weighted speculum was placed in posterior fornix of vagina, cervix exposed and grasped anteriorly with single tooth tenaculum. Uterus was sounded to 9.5 cm with uterine sound. The cervix was then serially dilated with Floyd dilators to accommodate a hysteroscope, which was introduced and using LR as a distending medium, the endometrial cavity was examined. There was a polypoid mass of approximately 0.5 cm emanating from the anterior uterine cavity wall. There were also small polypoid masses near the left tubal ostium. Both of these areas were biopsied directly and that tissue sent to pathology. Endometrial cavity was then sharply curettaged in all 4 quadrants to good uterine cry with removal of a small aliquot of tissue as well. That tissue was also sent to pathology. The hysteroscope was reintroduced and the endometrial cavity was examined. There was no remaining abnormal pathology. The hysteroscope and tenaculum were removed. There was no bleeding from the cervical os and no bleeding from the puncture sites. Sponge and needle counts were correct on completion of the procedure. Estimated blood loss was minimal. A total of 725 mL of LR was used as distending medium; almost the entire amount was recovered. The patient tolerated the procedure well and was uneventfully awakened from her general anesthesia and transferred to the recovery room in stable condition. Apparently, the patient did aspirate little bit of the ileus, stomach contents; the anesthesia reported normal stats, normal blood pressure, normal O2 sats, normal, respirations from the patient. She will be monitored closely in recovery room any additional workup undertaken depending on her clinical condition. Job ID: [id number] DocumentID: [id number] Dictated Date: 09/20/2018 13:23:23 Garment Finisher Date: 09/20/2018 23:28:05 Dictated By: AV GODFREY MD
== END 2018-09-20 15:33 | disposition home or self-care (01) ==
LOC: SDC 11:24
PROVIDERS: ATTEND Obstetrics & Gynecology
DX: N92.0 Excessive and frequent menstruation with regular cycle (principal); K21.9 Gastro-esophageal reflux disease without esophagitis; Z11.2 Encounter for screening for other bacterial diseases; F17.210 Nicotine dependence, cigarettes, uncomplicated
CPT/HCPCS: 36415; 84703; 85025; 87081; 88305

== ENCOUNTER → 2020-08-26 | Outpatient (CLI) | payer BC, OTHER ==
[~2020-08-26] MED LIST changes: +OXYC1TAB87 PO
--- NOTE | 2020-08-26 11:28 | Diagnostic Imaging Report ---
INDICATION: survey. TECHNIQUE: Multiple real-time grayscale images were obtained over the gravid uterus. COMPARISON: There are no prior studies available for comparison. FINDINGS: There is single live fetus in breech presentation. heart motion was noted and a rate of 144 BPM was recorded. There are no abnormalities identified. The growth parameters are fairly uniform. The amniotic fluid volume is within normal limits. The placenta is posterior and there is no previa. The cervix measures 4.0 cm in length. The ovaries were not well-visualized. Biometrical measurements are as follows: Biparietal 4.48 cm, age 19 weeks 4 days. Head circumference 16.70 cm, age 19 weeks 3 days. Abdominal circumference 14.85 cm, age 20 weeks 1 days. Femur length 2.95 cm, age 19 weeks 1 days. Sonographic estimate age: 19 weeks 4 days. Sonographic estimated date of delivery: 01/16/2021. Estimated Weight: 303 gm (+/- 44 gm). LMP percentile: 19%. heart rate: 144 beats per minute. number: 1 of 1. IMPRESSION: 1. There is a single live fetus approximately 19 weeks 4 days gestation +/- 1.5 weeks. 2. There were no abnormalities identified. 3. The growth parameters are fairly uniform. Dictated by: Dictated on workstation # [id number]
== END ==
LOC: RAD 09:32
PROVIDERS: ATTEND Obstetrics & Gynecology
DX: Z34.92 Encounter for supervision of normal pregnancy, unspecified, second trimester (principal); Z3A.19 19 weeks gestation of pregnancy
CPT/HCPCS: 76805

== ENCOUNTER 2020-11-06 14:20 | Observation (INO) | payer OTHER ==
[~2020-11-06] VITALS: Ht 172.7 cm; Wt 80.6 kg
[2020-11-06 14:38] VITALS: BP 119/66
[2020-11-06 14:40] VITALS: BP 119/66
[2020-11-06 15:03] LABS: BILIRUBIN,URINE NEGATIVE (NEGATIVE); CLARITY,URINE CLEAR; COLOR,URINE YELLOW; GLUCOSE, URINE (UA) NEGATIVE (NEGATIVE); KETONES,URINE NEGATIVE (NEGATIVE); LEUKOCYTE ESTERASE ,URINE NEGATIVE (NEGATIVE); NITRITE,URINE NEGATIVE (NEGATIVE); PROTEIN,URINE NEGATIVE (NEGATIVE)
[2020-11-06 15:04] VITALS: BP 119/66
[2020-11-06 15:17] LABS: BACTERIA,URINE NEGATIVE /HPF
[2020-11-06] MEDS ORDERED: D5 LR IV SOLUTION 1,000 ML IV ONE (15:30)
[2020-11-06] MEDS: D5 LR IV SOLUTION 1,000 ML IV SCH ×2 (15:53→18:11)
[2020-11-06 17:01] LABS: BASOPHILS % (AUTO) 0 % (0-10); EOSINOPHILS # (AUTO) 0.1 10^3/uL (0.0-0.3); EOSINOPHILS % (AUTO) 1 % (0-10); HEMATOCRIT 31 % (35-52); HEMOGLOBIN 10.7 g/dL (11.5-16.0); LYMPHOCYTES # (AUTO) 3.8 10^3/uL (1.0-4.0); LYMPHOCYTES % (AUTO) 29 % (12-44); MEAN CORPUSCULAR HEMOGLOBIN 32 pg (25-34); MEAN CORPUSCULAR HGB CONC 34 g/dL (32-36); MEAN CORPUSCULAR VOLUME 93 fL (80-99); MEAN PLATELET VOLUME 10.1 fL (9.0-12.2); MONOCYTES # (AUTO) 0.6 10^3/uL (0.0-1.0); MONOCYTES % (AUTO) 4 % (0-12); NEUTROPHILS # (AUTO) 8.6 10^3/uL (1.8-7.8); NEUTROPHILS % (AUTO) 66 % (42-75); PLATELET COUNT 249 10^3/uL (130-400); WHITE BLOOD COUNT 13.1 10^3/uL (4.3-11.0)
[2020-11-06 17:15] VITALS: BP 118/64
[2020-11-06] MEDS ORDERED: BETAMETHASONE ACE/NA PHOS 6 MG/ML (CELESTONE SOLUSPAN) ONE (17:55)
[2020-11-06] MEDS: BETAMETHASONE ACE/NA PHOS 6 MG/ML (CELESTONE SOLUSPAN) IM SCH (18:09)
[2020-11-06 21:15] VITALS: BP 116/56
[2020-11-07] MEDS: D5 LR IV SOLUTION 1,000 ML IV SCH ×2 (01:04→08:07)
[2020-11-07 01:15] VITALS: BP 113/56
[2020-11-07 06:00] VITALS: BP 116/58
[2020-11-07 07:40] VITALS: BP 124/61
--- NOTE | 2020-11-07 08:15 | History & Physical ---
History and Physical Date Seen by Provider: Nov 07, 2020 Time Seen by Provider: 08:13 This patient is a 30-year-old 1 white female patient of Dr. De La Garza he was admitted for contractions and vaginal bleeding at 31 weeks gestation. She will have been observed now through the night her contractions are spaced out she has continued to have some spotting or bleeding. Her cervix was dilated to 1 cm but has showed no further changes Patient reports improvement in the contractions with only occasional contractions and no pain. Allergies are none Medications are vitamins Medical social and surgical history is all per the antepartum record HEENT exam is normal Neck is supple no lymphadenopathy no thyromegaly Abdomen is gravid soft nontender nondistended Extremities show no clubbing or cyanosis. There is no Homans' sign. Pelvic exam as per nurse's note Assessment and plan hospital day 2 and at 31 weeks gestation with vaginal bleeding and contractions. Patient has a labor that seems to have resolved now. Her bleeding persists but is better. We will obtain an ultrasound to evaluate the . Patient has had a single dose of betamethasone we will repeat that dose. Will reevaluate later today for management plan 31 weeks with labor and vaginal bleeding Allergies and Home Medications Allergies Coded Allergies: No Known Drug Allergies (Unverified , 09/18/18) Home Medications Omeprazole Magnesium 20 Mg Tablet., 20 MG PO DAILY, (Reported) Oxycodone HCl/Acetaminophen 1 Each Tablet, 1 TAB PO Q4H Prescribed by: AV THRASHER on 09/20/18 0080 Patient Home Medication List Home Medication List Reviewed: Yes AV GODFREY MD Nov 07, 2020 08:15
--- NOTE | 2020-11-07 10:51 | Diagnostic Imaging Report ---
INDICATION: Vaginal bleeding, placental grading. TECHNIQUE: Multiple real-time grayscale images were obtained over the gravid uterus. COMPARISON: 08/26/2020 FINDINGS: The previous ultrasound exam performed on 08/26/2020 noted a single live fetus of approximately 19 weeks 4 days gestation +/- 1.5 weeks. On this study the fetus is again visualized. The fetus is cephalic in presentation and heart motion was noted with a rate of 143 bpm recorded. There were no abnormalities identified. The biophysical profile score was performed. The biophysical profile score is 8 out of 8 and within normal limits. The amniotic fluid index is 16.07 (normal 8 to 22 cm). The placenta is posterior and seems to be grade 1. There is no evidence for a previa although the internal os was not well visualized due to the positioning of the fetus. The previous exam failed to show any sign of previa. By the first exam the EDC is 01/16/2021 and the gestational age should be approximately 29 weeks 5 days gestation +/- 1.5 weeks. On this exam however the growth parameters average only 28 weeks 2 days. Furthermore the estimated weight is in the less than 10th percentile and I suspect that there is IUGR. Biometrical measurements are as follows: Biparietal 7.28 cm, age 29 weeks 2 days. Head circumference 26.46 cm, age 28 weeks 6 days. Abdominal circumference 22.26 cm, age 26 weeks 5 days. Femur length 5.32 cm, age 28 weeks 2 days. Sonographic estimate age: 28 weeks 2 days. Sonographic estimated date of delivery: 01/28/2021. Estimated Weight: 1097 gm (+/- 160 gm). LMP percentile: 2%. heart rate: 143 beats per minute. number: 1 of 1. IMPRESSION: 1. There is a single live fetus of approximately 29 weeks 5 days gestation +/- 1.5 weeks. The EDC remains 01/18/2021. 2. The growth parameters have not progressed as expected since the prior exam and there is concern for IUGR. 3. There are no abnormalities identified and the biophysical profile score is within normal limits. 4. These results were discussed with Dr. Aaron Hill. Dictated by: Dictated on workstation # [id number]
[2020-11-07 15:35] VITALS: BP 121/60
[2020-11-07] MEDS: BETAMETHASONE ACE/NA PHOS 6 MG/ML (CELESTONE SOLUSPAN) IM SCH (15:59)
--- NOTE | 2020-11-14 11:04 | Physician Query-Final Dx ---
FIDENCIO PAYNE 11/14/20 1104: Final Diagnosis Give Final Diagnosis Please give Final Diagnosis AV GODFREY MD 11/17/20 1822: Final Diagnosis Give Final Diagnosis PPROM AT 31 WEEKS FIDENCIO PAYNE Nov 14, 2020 11:04 AV GODFREY MD Nov 17, 2020 18:22
== END 2020-11-07 15:48 | disposition home or self-care (01) ==
LOC: WSo 14:20 → LDRP 14:20 → WSo 15:16 → LDRP 20:03 → UNDOADMOB 20:07 → UNDODISOB 11-07 12:34 → LDRP 11-07 16:05 → WSo 11-07 16:05 → EDSTATUS 11-20 14:40
PROVIDERS: ADMIT Obstetrics & Gynecology; ATTEND Obstetrics & Gynecology
DX: O42.913 Preterm premature rupture of membranes, unspecified as to length of time between rupture and onset of labor, third trimester (principal); Z3A.31 31 weeks gestation of pregnancy
CPT/HCPCS: 76805; 76819; 81000; 85025; 87088; 87210; 96360; 96361 ×2; 96372 ×2; G0378; G0379; Q0114; 36415; 89060; 99211

== ENCOUNTER 2020-11-08 18:10 | Outpatient (CLI) | payer OTHER ==
[~2020-11-08] VITALS: Ht 172.5 cm; Wt 84.1 kg
[2020-11-08 18:15] VITALS: BP 135/65
[2020-11-08 18:28] VITALS: BP 135/65
[2020-11-08 18:41] LABS: BILIRUBIN,URINE NEGATIVE (NEGATIVE); CLARITY,URINE CLEAR; COLOR,URINE YELLOW; GLUCOSE, URINE (UA) NEGATIVE (NEGATIVE); KETONES,URINE NEGATIVE (NEGATIVE); LEUKOCYTE ESTERASE ,URINE NEGATIVE (NEGATIVE); NITRITE,URINE NEGATIVE (NEGATIVE); PH,URINE 5.5 (5-9); PROTEIN,URINE NEGATIVE (NEGATIVE)
[2020-11-08 18:51] LABS: BACTERIA,URINE MODERATE /HPF; SQUAMOUS EPITHELIAL CELL,UR RARE /HPF
[2020-11-08 19:21] LABS: BASOPHILS % (AUTO) 0 % (0-10); EOSINOPHILS % (AUTO) 0 % (0-10); HEMATOCRIT 32 % (35-52); HEMOGLOBIN 10.7 g/dL (11.5-16.0); LYMPHOCYTES # (AUTO) 3.5 10^3/uL (1.0-4.0); LYMPHOCYTES % (AUTO) 21 % (12-44); MEAN CORPUSCULAR HEMOGLOBIN 32 pg (25-34); MEAN CORPUSCULAR HGB CONC 33 g/dL (32-36); MEAN CORPUSCULAR VOLUME 95 fL (80-99); MEAN PLATELET VOLUME 10.8 fL (9.0-12.2); MONOCYTES % (AUTO) 6 % (0-12); NEUTROPHILS # (AUTO) 12.3 10^3/uL (1.8-7.8); NEUTROPHILS % (AUTO) 73 % (42-75); PLATELET COUNT 258 10^3/uL (130-400); WHITE BLOOD COUNT 16.9 10^3/uL (4.3-11.0)
[2020-11-08 19:42] LABS: ALANINE AMINOTRANSFERASE 13 U/L (0-55); ALBUMIN 3.4 GM/DL (3.2-4.5); ALKALINE PHOSPHATASE 77 U/L (40-136); BILIRUBIN,TOTAL 0.3 MG/DL (0.1-1.0); BUN/CREATININE RATIO 14; CALCIUM 8.4 MG/DL (8.5-10.1); CARBON DIOXIDE 20 MMOL/L (21-32); CHLORIDE 108 MMOL/L (98-107); CREATININE SERUM 0.73 MG/DL (0.60-1.30); GFR ESTIMATED > 60; GLUCOSE 92 MG/DL (70-105); POTASSIUM 3.3 MMOL/L (3.6-5.0); SODIUM 139 MMOL/L (135-145); TOTAL PROTEIN 5.9 GM/DL (6.4-8.2)
[2020-11-08] MEDS ORDERED: D5 LR IV SOLUTION 1,000 ML IV ONE (19:49)
[2020-11-08] MEDS ORDERED: fentaNYL INJ 100 MCG/2 ML AMP ONE ×2 (19:49→22:22)
[2020-11-08 19:57] LABS: EOSINOPHILS % (MANUAL) 3 %; LYMPHOCYTES % (MANUAL) 21 %; MONOCYTES % (MANUAL) 2 %; NEUTROPHILS % (MANUAL) 74 %; RBC MORPH NORMAL
[2020-11-08] MEDS ORDERED: D5 LR IV SOLUTION 1,000 ML IV SCH (20:00)
[2020-11-08] MEDS ORDERED: fentaNYL INJ 100 MCG/2 ML AMP IVP ONE (20:00)
[2020-11-08] MEDS ORDERED: CITRIC ACID/SOB CIT (BICITRA) 30 ML UDC ONE (20:14)
[2020-11-08] MEDS ORDERED: CITRIC ACID/SOB CIT (BICITRA) 30 ML UDC PO ONE (20:30)
[2020-11-08] MEDS ORDERED: CALCIUM CARBONATE 500 MG (TUMS) TAB.CHEW ONE (20:52)
[2020-11-08] MEDS ORDERED: CALCIUM CARBONATE 500 MG (TUMS) TAB.CHEW PO ONE (21:00)
[2020-11-08] MEDS ORDERED: fentaNYL INJ 100 MCG/2 ML AMP IVP PRN (22:30)
[2020-11-08] MEDS ORDERED: DICYCLOMINE 10 MG (BENTYL) CAP ONE (23:21)
[2020-11-09] MEDS ORDERED: DICYCLOMINE 10 MG (BENTYL) CAP PO SCH (06:00)
--- NOTE | 2020-11-10 08:07 | Physician Query-Final Dx ---
FIDENCIO PAYNE 11/10/20 0807: Clinic Account Progress/Dx Physician Query: Please give diagnosis Please include # weeks gestation Date of Service Nov 08, 2020 at 18:10 AV GODFREY MD 11/10/20 1743: Clinic Account Progress/Dx DIAGNOSIS: Diagnosis 30 weeks gestation with biliary colic FIDENCIO PAYNE Nov 10, 2020 08:07 AV GODFREY MD Nov 10, 2020 17:43
== END 2020-11-09 00:15 | disposition home or self-care (01) ==
LOC: LDRP 18:10 → WSo 18:10 → EDPENDDISTM 11-09 00:15 → WSo 11-09 00:15 → EDPENDDISTM 11-09 00:20
PROVIDERS: ATTEND Obstetrics & Gynecology
DX: O62.4 Hypertonic, incoordinate, and prolonged uterine contractions (principal); Z3A.30 30 weeks gestation of pregnancy
CPT/HCPCS: 80053; 81000; 85007; 85027; 96361; 96374; 96376; G0463; 36415; 99213

== ENCOUNTER 2020-11-09 04:36 | Outpatient (CLI) | payer OTHER ==
[~2020-11-09] VITALS: Ht 170 cm; Wt 84.0 kg
[2020-11-09] VITALS (11 sets, daily range): BP systolic 99–115; BP diastolic 55–63
[2020-11-09] MEDS ORDERED: D5 LR IV SOLUTION 1,000 ML IV ONE (04:44)
[2020-11-09] MEDS ORDERED: AMPICILLIN 2,000 MG/14.8 ML (IV USE) ONE (05:39)
[2020-11-09] MEDS ORDERED: WATER (STERILE) FOR INJECTION 20 ML ONE (05:39)
[2020-11-09] MEDS ORDERED: MAGNESIUM SULFATE DRIP 500 ML IV ONE (05:40)
[2020-11-09] MEDS ORDERED: AZITHROMYCIN 250 MG TAB (ZITHROMAX) PO ONE (05:43)
[2020-11-09] MEDS ORDERED: MAGNESIUM SULFATE DRIP 500 ML IV SCH (05:45)
[2020-11-09] MEDS ORDERED: AMPICILLIN FOR IV USE 2,000 MG in WATER (STERILE) FOR INJECTION 14.8 ML IV ONE (05:45)
[2020-11-09] MEDS ORDERED: AZITHROMYCIN 100 MG/5 ML (ZITHROMAX) 15ML BTL PO ONE (05:45)
[2020-11-09] MEDS ORDERED: D5 LR IV SOLUTION 1,000 ML IV SCH (06:00)
--- NOTE | 2020-11-09 06:09 | History & Physical ---
History and Physical Date Seen by Provider: Nov 09, 2020 Time Seen by Provider: 05:48 This patient is a 30-year-old 1 white female who presents this morning with complaint of large gush of fluid. She denies contractions. Rupture of membranes is confirmed grossly and with nitrazine that is positive. This patient's history is significant for an unexplained MSAFP for which she has seen [facility] for evaluation that was reassuring in regard to a neural tube defect but concerning for some degree of growth restriction. This patient's history is further complicated by complain earlier this week of vaginal bleeding. No clear etiology could be determined however ultrasound at that time shows less than 10 percentile for growth again consistent with some degree of growth restriction. On the day prior to this admission the patient had been seen in our for severe left right and mid upper quadrant pain. She does have a history of some sort of disorder with her gallbladder but has had no follow-up in that regard. Her pain resolved with IV fluid fentanyl and Bentyl. She had been discharged home last evening and that episode of pain resolved. I have discussed management at 31 weeks gestation with rupture membrane and favor transfer to the care of [employer] school foreign language tutor with NICU accessibility. She agrees with transfer to [facility] at [facility] Allergies are none Medications are vitamin Medical social and surgical history is all per her antepartum record HEENT exam is normal Neck is supple with no lymphadenopathy no thyromegaly Abdomen is gravid soft nontender nondistended Extremities show no clubbing or cyanosis. There is no Homans' sign. Pelvic exam is deferred however on admission her exam did show cervix 1 cm dilated and thick with gross rupture membranes also confirmed with a heavily saturated pad and nitrazine positive test Assessment and plan 31 weeks gestation with P PROM. Patient had received 2 doses of betamethasone within the last week during the. Evaluation for vaginal bleeding which resolved. We have given 2 g of ampicillin IV and 500 mg orally of azithromycin. We have started magnesium at 2 g an hour. No bolus of magnesium was given. This patient's status and presentation has been reviewed with Dr. FLORES (?) at [facility] who has accepted this patient in transfer. Their kiln transfer operator indicated that they would send a transfer crew to picking machine operator the patient here at [facility] 31 weeks gestation with PPROM Allergies and Home Medications Allergies Coded Allergies: No Known Drug Allergies (Unverified , 09/18/18) Home Medications Omeprazole Magnesium 20 Mg Tablet.dr, 20 MG PO DAILY, (Reported) Oxycodone HCl/Acetaminophen 1 Each Tablet, 1 TAB PO Q4H Prescribed by: AV THRASHER on 09/20/18 1248 Patient Home Medication List Home Medication List Reviewed: Yes AV GODFREY MD Nov 09, 2020 06:09
== END 2020-11-09 08:30 | disposition other institution (70) ==
LOC: WSo 04:36 → LDRP 04:37 → WSo 08:30
PROVIDERS: ATTEND Obstetrics & Gynecology
DX: O42.913 Preterm premature rupture of membranes, unspecified as to length of time between rupture and onset of labor, third trimester (principal); Z3A.30 30 weeks gestation of pregnancy
CPT/HCPCS: 87081; 96361; 96374; 96375

== ENCOUNTER 2021-06-17 05:29 | Outpatient (RCR) | payer BC ==
[~2021-06-17] VITALS: Ht 172.7 cm; Wt 66.8 kg
== END 2021-06-17 13:28 | disposition home or self-care (01) ==
LOC: PREOP 05:29
PROVIDERS: ATTEND Internal Medicine
DX: Z01.812 Encounter for preprocedural laboratory examination (principal); R19.7 Diarrhea, unspecified; D50.9 Iron deficiency anemia, unspecified; Z20.822 Contact with and (suspected) exposure to COVID-19
CPT/HCPCS: 87635

== ENCOUNTER 2021-06-19 09:27 | Day surgery (SDC) | payer BC ==
--- NOTE | 2021-06-12 06:49 | HISTORY AND PHYSICAL ---
DATE OF SERVICE: PANENDOSCOPY HISTORY AND PHYSICAL PRIMARY CARE PROVIDER: Arielle Lua MD The patient is a 31-year-old white female who was seen in the office on 06/08/2021. She reports ever since the of her last child, she has loss at least 20 pounds of weight and has noted bowel habit change in the form of loose stools anywhere from 2 to 8 per day. She denies associated abdominal pain, night sweats, chills, fever and has noted no blood in her stool. She is not aware of any family history for inflammatory bowel disease, colon cancer or sprue. She reports that her appetite has been good, but she has been losing weight anyway. PAST SURGICAL HISTORY: Significant for mini gastric bypass surgery three years ago, she had a D and C done that revealed no evidence for malignancy. Earlier this year that was also after the of her child. Labs were obtained and her hemoglobin was low at 10. MCV was low normal at 82, platelet count was not elevated at 299 and the remainder of her chemistry panel was normal as well as her thyroid with a TSH of 0.83. PHYSICAL EXAMINATION: GENERAL: Reveals a white female appeared to be in no acute distress. CHEST: Clear. CARDIOVASCULAR: Reveals regular rate and rhythm without murmur, S3 or S4. ABDOMEN: Soft, supple without mass, organomegaly or tenderness. EXTREMITIES: Reveal no cyanosis, clubbing or edema. Additional history, she denies any problems with rash, arthralgia or joint swelling. ASSESSMENT AND PLAN: For further investigation of diarrhea with anemia, presumed iron deficiency with B12 and iron studies pending at the time of this dictation. We will need to rule out inflammatory bowel disease or sprue. Prep instructions with Suprep kit were given, and questions were answered. Job ID: [id number] DocumentID: [id number] Dictated Date: 06/08/2021 15:43:20 Pin Setter Date: 06/08/2021 16:00:20 Dictated By: ARIELLE LUA MD [facility]
[~2021-06-19] VITALS: Ht 172.7 cm; Wt 66.8 kg
--- OUTSIDE RECORDS SUMMARY | 2021-06-19 09:31 | XMS REPORT | Clinical Summary ---
Author Author [facility] Organization [facility] Address Unknown Phone Unavailable Care Team Providers Care Global Marketing Intern Name Role Phone Av Toribio MD Unavailable Jeanie Kinney MD PCP Evie Pennington RN Unavailable Unavailable Amber Burdick MD Unavailable Unavailable Kassie Johnson ELEVATOR PILOT-SOLAR SALES ASSOCIATE Unavailable Sandro Wan MD Unavailable Jeancarlos Cisneros MD Unavailable Kain Saunders MD Unavailable Larisa Yanes RN Unavailable Unavailable Christine Wagoner RN Unavailable Unavailable Michaela Young MD Unavailable Sole Kovacs RN Unavailable Unavailable Escobar Pan MD Unavailable Source Comments Some departments are not documenting in the electronic medical record. If you d o not see the information that you expected, contact Release of Information in [facility] Information Management department at [phone] for further assistan ce in locating additional records.[facility] Allergies Comments Active Allergy Reactions Severity Noted Date Facial edema and rash Avocado EDEMA Medium 01/17/2013 Was advised by surgeon to avoid after gastric bypass 07-11-17 Nsaids (Non-Steroidal SEE COMMENTS Low 02/15/20 18 Anti-Inflammatory Drug) Medications End Date Status Medication Sig Dispensed Refills Start Date Active acetaminophen (TYLENOL) Take 500 mg 0 500 mg tablet by mouth as Needed. Active omeprazole(+) (PRILOSEC) Take 10 mg by 0 10 mg capsule mouth twice daily. Active oxyCODONE (ROXICODONE, Take 1 tablet 10 tablet 0 0 OXY-IR) 5 mg tablet by mouth 8 every 6 hours as needed. Active Problems Problem Noted Date Intracranial hypotension following ventricular shunti ng 02/27/2018 Overview: Formatting of this note might be differ ent from the original. Added automatically from request for dwain daniel [id number] Visit for suture removal 11/05/2014 Overview: Formatting of this note might be differ ent from the original. Incision healing well. Edges well appr oximated. No S/S of infection noted. Cerebral edema 10/06/2014 Vomiting 10/06/2014 IIH (idiopathic intracranial hypertension) 5 Blurry vision, bilateral 10/06/2014 Visual changes 10/06/2014 Headache 10/02/2014 Obesity, morbid 02/16/2013 Metabolic acidosis 02/16/2013 Dizziness 02/16/2013 Pseudotumor cerebri 02/14/2013 Last Assessment & Plan: Formatting of this note might be differ ent from the original. Shunt revision 06/14/2013. Increased intracranial pressure 01/17/2013 Overview: Formatting of this note might be differ ent from the original. Lumboperitoneal Shunt placed 01/18/2013. L ast Assessment & Plan: Formatting of this note might be differ ent from the original. Shunt exploration and revision on 2013. Lumbar incision healing well. No S/S of infection noted. Papilledema 01/10/2013 Last Assessment & Plan: Formatting of this note might be differ ent from the original. Suspect pseudotumor cerebri. Will orde r MRV to assess for possible cerebral thrombosis and spinal tap to o btain opening pressure. Will stop diamox for now until workup complete. Will refer patient to Dr. Wan (neuro-ophthalmology) for further evalu ation and management. Immunizations Name Administration Dates Next Due Flu Vaccine Quadrivalent 10/08/2014 =>3 Yo (Preservative Free) Surgical History Surgery Date Site/Laterality Comments SHUNT REVISION TONSIL AND ADENOIDECTOMY GASTRIC BYPASS 07/11/2017 SHUNT REMOVAL 04/21/2018 Back/N/A REMOVAL OF ENTI RE LUMBAR SHUNT SYSTEM performed by Kain Saunders MD at [facility] OR/Periop Medical devices from this surgery are i n the Implants section. SHUNT REMOVAL 02/28/2018 N/A LUMBAR PERITONE AL SHUNT LIGATION performed by Kain Saunders MD at [facility] OR/Periop SHUNT REMOVAL 02/20/2018 Left REVISION OF LUM BAR PERITONEAL SHUNT performed by Kain Saunders MD at [facility] OR/Periop Medical History Medical History Date Comments Pseudotumor cerebri Generalized headaches Vision decreased Headache 10/02/2014 Family History Medical History Relation Name Comments Cancer Maternal Aunt Cataract Maternal Grandmother Coronary Artery Disease Maternal Grandmother Hypertension Maternal Grandmother Thyroid Disease Mother Cancer Paternal Aunt Cancer Paternal Grandfather Neurologic Disorder Paternal Parkinson's Grandmother Thyroid Disease Sister Amblyopia Neg Hx Autoimmune Disease Neg Hx Blindness Neg Hx Diabetes Neg Hx Glaucoma Neg Hx Macular Degen Neg Hx Retinal Detachment Neg Hx Strabismus Neg Hx Stroke Neg Hx Relation Name Status Comments Brother Alive Father Alive Maternal Aunt Maternal Grandfather Maternal Grandmother Mother Alive Paternal Aunt Paternal Grandfather Paternal Grandmother Alive Sister Alive Sister Alive Sister Alive Social History Date Tobacco Use Types Packs/Day Years Used Quit: 12/20/2012 Former Smoker Smokeless Tobacco: Never Used Comments Alcohol Use Standard Drinks/Week weekends Yes 2 (1 standard drink = 0.6 o z pure alcohol) Alcohol Habits Answer Date Recorded How often do you have a drink containing alcohol? No t asked How many drinks containing alcohol do you have on No t asked a typical day when you are drinking? How often do you have six or more drinks on one Not asked occasion? Comment: weekends 01/17/2013 Sex Assigned at Date Recorded Not on file Last Filed Vital Signs Reading Time Taken Comments Vital Sign 105/67 05/10/2018 2:02 PM CDT Blood Pressure 50 05/10/2018 2:02 PM CDT Pulse 36.8 C (98.2 F) 05/10/2018 2:02 PM CDT Temperature 14 02/16/2013 1:41 PM CDT Respiratory Rate 100% 04/21/2018 9:25 AM CDT Oxygen Saturation - - Inhaled Oxygen Concentration 89.8 kg (198 lb) 05/10/2018 2:02 PM CDT Weight 172.7 cm (5' 8") 05/10/2018 2:02 PM CDT Height 30.11 05/10/2018 2:02 PM CDT Body Mass Index Plan of Treatment Health Maintenance Due Date Last Done Comments HIV SCREENING 2005 DTAP/TDAP VACCINES (1 - 2008 Tdap) HEPATITIS C SCREENING 2008 PHYSICAL (COMPREHENSIVE) 2008 EXAM CERVICAL CANCER SCREENING 2011 INFLUENZA VACCINE 03/15/2021 10/08/2014 Implants Device Identifier Shelf Expiration Date Model / Serial / L ot Explanted Type Area Manufactur er / UNKNOWN / UNKNOWN Lp Shunt N/A: Spine Explanted: Qty: 1 on 04/21/2018 by Kain Back MD at [facility] Results Not on filefrom Last 3 Months Insurance Type Payer Benefit Subscriber ID Effective Phone Address Plan / Dates Group HMO BCBS [employer] BS [id number] 2018-P [employer] (Home) [place] [address] 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 necessary based on Dx 01/19/2013 7:10 PM Full Code 01/17/2013 8:40 PM Provider has discussed Code Status Yes w/Patient or Family?
[2021-06-19] MEDS ORDERED: LACTATED RINGERS 1,000 ML IV ONE (09:37)
[2021-06-19] MEDS ORDERED: LACTATED RINGERS 1,000 ML IV STA (09:59)
[2021-06-19] MEDS ORDERED: LIDOCAINE JELLY 2% 6 ML SYRINGE MM PRN (10:00)
[2021-06-19] MEDS ORDERED: HURRICAINE EXT TUBE (BENZOCAINE) XX PRN (10:00)
[2021-06-19 10:12] VITALS: BP 104/58
--- NOTE | 2021-06-19 10:12 | Pre-Op Note & Conscious Sedat ---
Pre-Operative Progress Note H&P Reviewed The H&P was reviewed, patient examined and no changes noted. Date H&P Reviewed: Jun 19, 2021 Time H&P Reviewed: 10:12 Conscious Sedation Pre-Proced ASA Score 2 For ASA 3 and 4: Consider anesthesia and medical clearance. Also, for patients with a history of failed moderate sedation consider anesthesia. Airway Lungs Heart ASA score ASA 1: a normal healthy patient ASA 2: a patient with a mild systemic disease (mid diabetes, controlled hypertension, obesity ASA 3: a patient with a severe systemic disease that limits activity (angina, COPD, prior Myocardial infarction) ASA 4: a patient with an incapacitating disease that is a constant threat to life (CHF, renal failure) ASA 5: a moribund patient not expected to survive 24 hrs. (ruptured aneurysm) ASA 6: a declared brain- patient whose organs are being harvested. For emergent operations, add the letter E after the classification Mallampati Classification Grade 2 Sedation Plan Analgesia, Amnesia, Plan communicated to team members, Discussed options with patient/fam, Discussed risks with patient/fam The patient is an appropriate candidate to undergo the planned procedure, sedation, and anesthesia. The patient immediately re-assessed prior to indication. ARIELLE LUA MD Jun 19, 2021 10:12
[2021-06-19] MEDS ORDERED: MIDAZOLAM 2 MG/2 ML (VERSED) VIAL ONE (11:32)
[2021-06-19] MEDS ORDERED: PROPOFOL INJECTION 50 ML IV ONE ×2 (11:33→12:01)
[2021-06-19] MEDS ORDERED: GLYCOPYRROLATE 0.2 MG/ML (ROBINUL) 2 ML VIAL ONE (11:45)
[2021-06-19 12:15] VITALS: BP 122/76
[2021-06-19 12:20] VITALS: BP 139/81
[2021-06-19 12:40] VITALS: BP 116/72
[2021-06-19 13:05] VITALS: BP 116/72
--- NOTE | 2021-06-19 13:46 | Anesthesia-General Post-Op ---
MAC Patient Condition Mental Status/LOC: Same as Preop Cardiovascular: Satisfactory Nausea/Vomiting: Absent Respiratory: Satisfactory Pain: Controlled Complications: Absent Post Op Complications Complications None Follow Up Care/Instructions Patient Instructions None needed. Anesthesiology Discharge Order Discharge Order Patient is doing well, no complaints, stable vital signs, no apparent adverse anesthesia problems. No complications reported per nursing. ALICJA WALDRON TILE AND MARBLE INSTALLER Jun 19, 2021 13:46
--- NOTE | 2021-06-19 18:47 | OPERATIVE REPORT ---
DATE OF SERVICE: PANENDOSCOPY SUMMARY INDICATION FOR THE PROCEDURE: Dysphagia, iron deficiency anemia, diarrhea. DESCRIPTION OF PROCEDURE: The patient was placed in the left lateral decubitus position. The endoscope was inserted into the oral cavity and under direct visualization, esophagus was intubated. Endoscope was passed down the esophagus through the stomach and second portion of the duodenum. Careful inspection was made as the endoscope was withdrawn. FINDINGS: The posterior pharynx, epiglottis, arytenoid aperture and true and false vocal folds were unremarkable to visual inspection. Proximal, mid and distal esophagus were unremarkable. The GE junction appears to be proximally placed above the level of the diaphragm without evidence for erosive esophagitis, rings, webs or strictures. Biopsies were obtained for histopathology evaluation, rule out underlying Ray's. Gastric findings are compatible with gastric bypass, efferent and afferent limbs were visualized. Biopsy was obtained to rule out underlying sprue considering diarrhea and weight loss with iron deficiency anemia. No evidence for ulceration or erosions were noted. Findings of an intact gastric bypass were present without evidence for ulceration. The gastric remnant small, but no evidence for obstruction is noted. Visualization of the afferent and efferent limbs there may have been some questionable villous blunting, so biopsy is pending to rule out underlying villous atrophy. The lower esophageal sphincter remain widely patent. There was no evidence for erosive esophagitis or obstruction. We then proceeded with colonoscopy. The colonoscope was inserted into the rectum and under direct visualization advanced to cecum. The cecum was identified by identification of ileocecal valve and cecal strap. Photographic documentation was obtained. Distal 5 to 10 cm of terminal ileum were inspected as well. Quality of prep was good. FINDINGS: Prior to undergoing colonoscopy, digital rectal evaluation was performed. No abnormalities being noted on digital inspection. The rectum, sigmoid colon, descending colon, transverse colon, ascending colon, cecum and distal terminal ileum were unremarkable. No evidence for inflammatory change or ulceration. No evidence for neoplasia was identified. Biopsies from the ascending colon and rectum were obtained and submitted for evaluation for microscopic colitis considering history of diarrhea. ASSESSMENT: Normal colonoscopy to the cecum including distal terminal ileum. We will await histopathology report before making further treatment recommendations. If there is no evidence for microscopic colitis or sprue we will advocate treatment for IBS-D as well as iron replacement therapy. Considering gastric bypass, will likely need IV iron replacement. Job ID: [id number] DocumentID: [id number] Dictated Date: 06/19/2021 12:17:43 Ski Tow Operator Date: 06/19/2021 18:46:59 Dictated By: ARIELLE LUA MD MTDD
== END 2021-06-19 13:05 | disposition home or self-care (01) ==
LOC: ENDO 09:27
PROVIDERS: ATTEND Internal Medicine
DX: K21.00 Gastro-esophageal reflux disease with esophagitis, without bleeding (principal); K63.89 Other specified diseases of intestine; D50.9 Iron deficiency anemia, unspecified; R19.7 Diarrhea, unspecified; K20.90 Esophagitis, unspecified without bleeding; Z79.899 Other long term (current) drug therapy; F32.A Depression, unspecified
CPT/HCPCS: 84703

== ENCOUNTER 2021-07-07 13:51 | Outpatient (RCR) | payer BC ==
[2021-06-30 13:45] VITALS: BP 115/76
[2021-06-30] MEDS: FERRIC CARBOXYMALTOSE INJ 750 MG in NS (IVPB) 250 ML IV SCH (13:58)
[2021-06-30 15:00] VITALS: BP 115/76
[~2021-07-07] VITALS: Ht 172.7 cm; Wt 67.7 kg
[2021-07-07] MEDS: FERRIC CARBOXYMALTOSE INJ 750 MG in NS (IVPB) 250 ML IV SCH (14:11)
[2021-07-07 14:45] VITALS: BP 133/75
== END 2021-08-14 | disposition home or self-care (01) ==
LOC: SDC 13:51
PROVIDERS: ATTEND Internal Medicine
DX: D50.9 Iron deficiency anemia, unspecified (principal)
CPT/HCPCS: 96365

== ENCOUNTER 2022-11-04 16:00 | Emergency (ER) | payer BC ==
[~2022-11-04] VITALS: Ht 172 cm; Wt 69.0 kg
[2022-11-04] MEDS ORDERED: NS IV 1000 ML 1,000 ML IV STA (16:20)
[2022-11-04] MEDS ORDERED: fentaNYL INJ 100 MCG/2 ML AMP IVP STA (16:20)
[2022-11-04 16:27] LABS: BASOPHILS % (AUTO) 0 % (0-10); EOSINOPHILS # (AUTO) 0.1 10^3/uL (0.0-0.3); EOSINOPHILS % (AUTO) 2 % (0-10); HEMATOCRIT 38 % (35-52); HEMOGLOBIN 12.5 g/dL (11.5-16.0); LYMPHOCYTES % (AUTO) 43 % (12-44); MEAN CORPUSCULAR HEMOGLOBIN 31 pg (25-34); MEAN CORPUSCULAR HGB CONC 33 g/dL (32-36); MEAN CORPUSCULAR VOLUME 92 fL (80-99); MEAN PLATELET VOLUME 10.1 fL (9.0-12.2); MONOCYTES # (AUTO) 0.5 10^3/uL (0.0-1.0); MONOCYTES % (AUTO) 7 % (0-12); NEUTROPHILS # (AUTO) 3.4 10^3/uL (1.8-7.8); NEUTROPHILS % (AUTO) 48 % (42-75); PLATELET COUNT 244 10^3/uL (130-400)
[2022-11-04 16:30] LABS: BILIRUBIN,URINE NEGATIVE (NEGATIVE); CLARITY,URINE CLEAR; COLOR,URINE YELLOW; GLUCOSE, URINE (UA) NEGATIVE (NEGATIVE); KETONES,URINE NEGATIVE (NEGATIVE); LEUKOCYTE ESTERASE ,URINE NEGATIVE (NEGATIVE); NITRITE,URINE NEGATIVE (NEGATIVE); PROTEIN,URINE NEGATIVE (NEGATIVE)
[2022-11-04] MEDS ORDERED: HOLD METFORMIN - RECEIVED CONTRAST 20 ML VIAL IV SCH (16:30)
[2022-11-04] MEDS ORDERED: ONDANSETRON 4 MG/2 ML (SDV) Z0FRAN IVP ONE (16:30)
[2022-11-04] MEDS ORDERED: IOHEXOL 350 MG/ML 100 ML (OMNIPAQUE 350) VIAL IV ONE (16:30)
[2022-11-04] MEDS ORDERED: NS 100 ML (IVPB) BAG IV ONE (16:30)
--- NOTE | 2022-11-04 16:31 | ED Abdominal Pain ---
General Chief Complaint: Abdominal/GI Problems Stated Complaint: ABDOMINAL PAIN Nursing Triage Note: PT PRESENTS TO ED WITH C/O RIGHT SIDED ABDOMINAL PAIN THAT BEGAN TUESDAY NIGHT. PT SEEN 2X AT [facility] AND WAS DX WITH BOWEL OBSTRUCTION. PT SENT HOME ON ABX BUT PAIN AND BLOATING IS GETTING WORSE. Source of Information: Patient Exam Limitations: No Limitations History of Present Illness Date Seen by Provider: Nov 04, 2022 Time Seen by Provider: 16:28 Initial Comments Patient is a 32-year-old female who presents ED with abdominal pain since Tuesday. Pain is described as sharp. Pain has been constant since Tuesday but states pain appears to be worsening. She states she went to [place] on Tuesday was diagnosed with gastroenteritis. She returned back Tuesday secondary to increasing pain. There was concern for possible obstruction. Dr. So was contacted. Recommend clear liquids, Cipro, Flagyl, Bentyl and hydrocodone. She states she has been taking the medication without much improvement. Worsening pain today. Has not had a bowel movement since Tuesday or passing any gas. Vomited Tuesday and Tuesday but that has improved. Pain in her lower back. history of , gastric bypass. Denies , fever, chills, chest pain, shortness of breath, headache, dizziness Allergies and Home Medications Allergies Coded Allergies: No Known Drug Allergies (Unverified , 09/18/18) Patient Home Medication List Home Medication List Reviewed: Yes Magnesium Citrate (Magnesium Citrate) 296 Ml Solution, 296 ML PO DAILY PRN PRN for CONSTIPATION-2ND LINE Prescribed by: SCOTT MELENDEZ on 11/04/22 1825 Omeprazole Magnesium (Prilosec Otc) 20 Mg Tablet., 20 MG PO DAILY, (Reported) Entered as Reported by: ANUPAM LIPSCOMB on 09/18/18 1319 Oxycodone HCl/Acetaminophen (Percocet 5-325 mg Tablet) 1 Each Tablet, 1 TAB PO Q4H Prescribed by: AV THRASHER on 09/20/18 1248 Review of Systems Review of Systems Constitutional: No chills, No diaphoresis; malaise; No weakness EENTM: No Double Vision, No Eye Pain Respiratory: Denies See HPI, Denies Cough, Denies Shortness of Air, Denies SOA at Rest Cardiovascular: Denies Chest Pain Gastrointestinal: Abdominal Pain, Constipated; Denies Diarrhea; Nausea; Denies Vomiting Genitourinary: Denies Burning, Denies Discharge, Denies Drainage, Denies Frequency Musculoskeletal: No back pain, No joint pain Skin: No change in color Psychiatric/Neurological: Denies Anxiety, Denies Depressed Endocrine: Denies Excessive Sweating Hematologic/Lymphatic: Denies Anemia All Other Systems Reviewed Negative Unless Noted: Yes Past Lifdzhz-Dvyviy-Jusqsx Hx Patient Social History Tobacco Use?: Yes Tobacco type used: Cigarettes Smoking Status: Current Everyday Smoker Substance use?: No Alcohol Use?: No Pt feels they are or have been: No Immunizations Up To Date Influenza Vaccine Up-to-Date: Yes; Up-to-Date First/Initial COVID19 Vaccinat: 02/2021 Second COVID19 Vaccination Bill: 03/19/2021 Seasonal Allergies Seasonal Allergies: No Past Medical History Surgeries: Yes (LP SHUNT X9 AND REMOVAL, MINI GASTRIC BYPASS) Adenoidectomy, Brain Shunt, Tonsillectomy Respiratory: No Cardiac: No Neurological: Yes (PSEUDOTUMOR CEREBRI) Reproductive Disorders: No Female Reproductive Disorders: Menstrual Problems Sexually Transmitted Disease: No HIV/AIDS: No Genitourinary: No Gastrointestinal: Yes (TAKES PRILOSEC FOR MINI BYPASS) Gastroesophageal Reflux Musculoskeletal: No Endocrine: No HEENT: No Cancer: No Psychosocial: No Integumentary: No Blood Disorders: No Adverse Reaction/Blood Tranf: No (N/A) Physical Exam Vital Signs Vital Signs - First Documented 11/04/22 11/04/22 16:12 18:32 Pulse 73 Resp 20 B/P (MAP) 95/76 (82) Pulse Ox 99 O2 Delivery Room Air Capillary Refill : Less Than 3 Seconds Height/Weight/BMI Height: 5'8.00" Weight: 207lbs. 0.0oz. 93.087375wa; 23.00 BMI Method:Stated General Appearance: WD/WN, no apparent distress HEENT: PERRL/EOMI, normal ENT inspection, TMs normal, pharynx normal Neck: non-tender, full range of motion, supple, normal inspection Respiratory: chest non-tender, lungs clear, normal breath sounds, no respiratory distress, no accessory muscle use Cardiovascular: regular rate, rhythm, no edema, no gallop, no JVD Gastrointestinal: normal bowel sounds, soft, no organomegaly, no pulsatile mass, tenderness (Right sided abdominal tenderness. No rebound or guarding. Normal bowel sounds) Extremities: normal range of motion, non-tender, normal inspection, no pedal edema, no calf tenderness Back: normal inspection, no CVA tenderness, no vertebral tenderness Pelvic: normal external exam Neurologic/Psychiatric: crime scene photographer II-XII nml as tested, no motor/sensory deficits, alert, normal mood/affect, oriented x 3 Skin: normal color, warm/dry Progress/Results/Core Measures Results/Orders Lab Results Laboratory Tests Test 11/04/22 16:23 11/04/22 16:24 Range/Units White Blood Count 7.0 4.3-11.0 10^3/uL Red Blood Count 4.08 3.80-5.11 10^6/uL Hemoglobin 12.5 11.5-16.0 g/dL Hematocrit 38 35-52 % Mean Corpuscular Volume 92 80-99 fL Mean Corpuscular Hemoglobin 31 25-34 pg Mean Corpuscular Hemoglobin Concent 33 32-36 g/dL Red Cell Distribution Width 12.2 10.0-14.5 % Platelet Count 244 130-400 10^3/uL Mean Platelet Volume 10.1 9.0-12.2 fL Immature Granulocyte % (Auto) 0 % Neutrophils (%) (Auto) 48 42-75 % Lymphocytes (%) (Auto) 43 12-44 % Monocytes (%) (Auto) 7 0-12 % Eosinophils (%) (Auto) 2 0-10 % Basophils (%) (Auto) 0 0-10 % Neutrophils # (Auto) 3.4 1.8-7.8 10^3/uL Lymphocytes # (Auto) 3.0 1.0-4.0 10^3/uL Monocytes # (Auto) 0.5 0.0-1.0 10^3/uL Eosinophils # (Auto) 0.1 0.0-0.3 10^3/uL Basophils # (Auto) 0.0 0.0-0.1 10^3/uL Immature Granulocyte # (Auto) 0.0 0.0-0.1 10^3/uL Sodium Level 141 135-145 MMOL/L Potassium Level 4.3 3.6-5.0 MMOL/L Chloride Level 108 H 98-107 MMOL/L Carbon Dioxide Level 26 21-32 MMOL/L Anion Gap 7 5-14 MMOL/L Blood Urea Nitrogen 5 L 7-18 MG/DL Creatinine 0.70 0.60-1.30 MG/DL Estimat Glomerular Filtration Rate 118 BUN/Creatinine Ratio 7 Glucose Level 96 70-105 MG/DL Calcium Level 8.9 8.5-10.1 MG/DL Corrected Calcium 8.7 8.5-10.1 MG/DL Total Bilirubin 0.3 0.1-1.0 MG/DL Aspartate Amino Transf (AST/SGOT) 24 5-34 U/L Alanine Aminotransferase (ALT/SGPT) 27 0-55 U/L Alkaline Phosphatase 66 40-136 U/L Total Protein 6.7 6.4-8.2 GM/DL Albumin 4.2 3.2-4.5 GM/DL Lipase 16 8-78 U/L Serum Test, Qualitative NEGATIVE NEGATIVE Urine Color YELLOW Urine Clarity CLEAR Urine pH 6.0 5-9 Urine Specific [place] 1.020 1.016-1.022 Urine Protein NEGATIVE NEGATIVE Urine Glucose (UA) NEGATIVE NEGATIVE Urine Ketones NEGATIVE NEGATIVE Urine Nitrite NEGATIVE NEGATIVE Urine Bilirubin NEGATIVE NEGATIVE Urine Urobilinogen 0.2 < = 1.0 MG/DL Urine Leukocyte Esterase NEGATIVE NEGATIVE Urine RBC (Auto) NEGATIVE NEGATIVE Urine RBC RARE /HPF Urine WBC RARE /HPF Urine Squamous Epithelial Cells 2-5 /HPF Urine Crystals NONE /LPF Urine Bacteria TRACE /HPF Urine Casts NONE /LPF Urine Mucus SMALL H /LPF Urine Culture Indicated NO My Orders Orders - HIMA REINOSO Cbc With Automated Diff (11/04/22 16:20) Comprehensive Metabolic Panel (11/04/22 16:20) Lipase (11/04/22 16:20) Hcg,Qualitative Serum (11/04/22 16:20) Ct Abd/Pelv W (Appendicitis) (11/04/22 16:20) Ns Iv 1000 Ml (Sodium Chloride 0.9%) (11/04/22 16:20) Fentanyl Inj (Sublimaze Injection) (11/04/22 16:20) Ondansetron Injection (Zofran Injectio (11/04/22 16:30) Urinalysis (11/04/22 16:21) Iohexol Injection (Omnipaque 350 Mg/Ml 1 (11/04/22 16:30) Received Contrast (Hold Metformin- Contr (11/04/22 16:30) Ns (Ivpb) (Sodium Chloride 0.9% Ivpb Bag (11/04/22 16:30) Medications Given in ED Current Medications Medications Dose Ordered Sig/Shar Route Start Time Stop Time Status Last Admin Dose Admin Iohexol 100 ml ONCE ONCE IV 11/04/22 16:30 11/04/22 16:32 DC 11/04/22 16:57 79 ML Ondansetron HCl 4 mg ONCE ONCE IVP 11/04/22 16:30 11/04/22 16:31 DC 11/04/22 16:35 4 MG Sodium Chloride 100 ml ONCE ONCE IV 11/04/22 16:30 11/04/22 16:32 DC 11/04/22 16:57 80 ML Vital Signs/I&O 11/04/22 11/04/22 16:12 18:32 Pulse 73 62 Resp 20 18 B/P (MAP) 95/76 (82) 104/80 Pulse Ox 99 97 O2 Delivery Room Air Blood Pressure Mean: 82 Departure Communication (PCP) Reviewed previous ER visits, H&P's, outpatient visits, lab testing, imaging. Patient with right-sided abdominal pain since Tuesday. Patient was seen at [place] on Tuesday and Tuesday and states there was concern for a small bowel obstruction. She was placed on Cipro, Flagyl, Bentyl and hydrocodone without much improvement. Continue pain. On arrival patient tearful moderate distress. She is tender to the right sided abdomen but does have some mild tenderness to her left lower abdomen. She has not been able to eat as much. Currently on a clear liquid diet. She has not had a bowel movement since Tuesday and currently taking 1 oral laxative daily. She denies passing gas. History of gastric bypass, . Due to current presentation CBC, CMP, lipase, CT abdomen and pelvis was ordered. Differential diagnosis of bowel obstruction, appendicitis, cystitis, urolithiasis. CBC, CMP grossly unremarkable. Urinalysis negative for infection or . CT abdomen and pelvis did not show any acute finding besides distended gallbladder without evidence of pericholecystic fluid, inflammation. Patient was given a dose of pain medication with some improvement. Patient states Dr. So was contacted regarding her care on Tuesday. She is requesting to be seen by Dr. SO at this time. Discussed with patient due to unremarkable lab work and imaging that this can be seen outpatient. I did contact Dr. SO who recommend follow-up in the office at 1030 tomorrow. Suspect other potential causes such as biliary dyskinesia. She is tender on multiple spots of her abdomen. Worse to right upper quadrant. Rating pain to the back. No vaginal bleeding. She does have IUD which was noted on the CT scan. No vaginal discharge or concern for PID. History of endometriosis with surgical ablation. Patient feels much better. Discussed the hydrocodone may be potentially causing her to be constipated. Discussed continue laxatives. Discussed diet changes clear liquid. Return precaution were discussed Impression Primary Impression: Abdominal pain Disposition: HOME, SELF-CARE Condition: Stable Departure-Patient Inst. Decision time for Depature: 18:24 Referrals: ARIELLE LUA MD (PCP/Family) Primary Care Physician DAVID SO MD Patient Instructions: Abdominal Pain, Adult ED Add. Discharge Instructions: Recommend following up with Dr. So in his office tomorrow at 10:30 AM. Provided magnesium citrate to help with bowel movement. Continue with Dulcolax and/or MiraLAX daily. Wean off the hydrocodone. All discharge instructions reviewed with patient and/or family. Voiced understanding. Scripts Magnesium Citrate (Magnesium Citrate) 296 Ml Solution 296 ML PO DAILY PRN PRN for CONSTIPATION-2ND LINE, #1 EA Prov: HIMA REINOSO 11/04/22 Work/School Note: Work Release Form Date Seen in the Emergency Department: Nov 04, 2022 Return to Work: Nov 06, 2022 HIMA REINOSO Nov 04, 2022 16:31
[2022-11-04 16:38] LABS: ALBUMIN 4.2 GM/DL (3.2-4.5)
[2022-11-04 16:39] LABS: POTASSIUM 4.3 MMOL/L (3.6-5.0)
[2022-11-04 16:39] LABS: BACTERIA,URINE TRACE /HPF; RBC,URINE RARE /HPF; WBC,URINE RARE /HPF
[2022-11-04 16:40] LABS: CALCIUM 8.9 MG/DL (8.5-10.1)
[2022-11-04 16:41] LABS: TOTAL PROTEIN 6.7 GM/DL (6.4-8.2)
[2022-11-04 16:43] LABS: BILIRUBIN,TOTAL 0.3 MG/DL (0.1-1.0)
[2022-11-04 16:45] LABS: CREATININE SERUM 0.7 MG/DL (0.60-1.30)
--- NOTE | 2022-11-04 17:13 | Diagnostic Imaging Report ---
PROCEDURE: CT abdomen and pelvis with contrast, rule out appendicitis. TECHNIQUE: Multiple contiguous axial images were obtained through the abdomen and pelvis after the administration of intravenous contrast. All CT scans use one or more of the following dose optimizing techniques: automated exposure control, MA and/or KvP adjustment based on patient size and exam type or iterative reconstruction. INDICATION: Right-sided pain, history of bowel obstruction. COMPARISON: Exam compared with an abdominopelvic CT of 12/18/[address] more recently performed in 2018. FINDINGS: There are postsurgical changes of the gastric bypass. There is a percutaneous drain in the pelvis. There is a small-volume pelvic free fluid. No loculated collection. There is no air-fluid level or findings of bowel obstruction. Gallbladder is distended but no visible radiodense gallstone. No bile duct dilatation. Spleen, adrenals, and pancreas are nonacute. The kidneys are unobstructed. No pneumatosis or free gas. No vascular obstruction. No aneurysm. No intra or extraperitoneal hemorrhage. No free air. There is an IUD device in the uterus. No acute-appearing adnexal abnormality. No findings of abscess. IMPRESSION: No bowel obstruction, perforation, or loculated fluid collection. Indwelling drain with a small-volume free fluid. Dilatation of the nonfocal gallbladder with no visible stone or bile duct dilatation. Unobstructed nonacute urinary tracts. No findings of appendicitis. Dictated by: Dictated on workstation # [id number]
[2022-11-04] MEDS ORDERED: MAGN296S68 PO (18:25)
[2022-11-04 18:32] VITALS: BP 104/80
== END 2022-11-04 18:39 | disposition home or self-care (01) ==
LOC: EDUNIT# 16:00 → ER 16:02
DX: R10.11 Right upper quadrant pain (principal); R10.32 Left lower quadrant pain; F17.210 Nicotine dependence, cigarettes, uncomplicated; Z98.84 Bariatric surgery status; Z90.49 Acquired absence of other specified parts of digestive tract
CPT/HCPCS: 36415; 74177; 80053; 81000; 83690; 84703; 85025

== ENCOUNTER → 2022-11-09 | Outpatient (CLI) | payer BC ==
[~2022-11-09] MED LIST changes: +ACHD5005 PO; +CATHETER FLUSH 10 ML SYR IVP PRN; +DOCU-143 PO; +ESCI20TA39 PO; +MAGN296S68 PO
--- NOTE | 2022-11-09 11:54 | Diagnostic Imaging Report ---
RADIOPHARMACEUTICAL: 5.36mCi Tc-99m Choletec IV INDICATION: Right upper quadrant pain. COMPARISON: 11/04/2022 TECHNIQUE: Anterior dynamic imaging for 1 hour. Additional 60 minutes of imaging was obtained after the patient drank an 8 ounce can of Ensure. FINDINGS: There is homogenous uptake throughout the liver. The gallbladder is visualized at 25minutes and small bowel at 10minutes. After CCK analog administration, there is abnormal contraction of the gallbladder with abnormally low calculated GBEF at 14%. IMPRESSION: 1. No evidence of acute cholecystitis or common duct obstruction. 2. Abnormally low GBEF of 14%. This can be seen with underlying biliary dyskinesia or chronic acalculous cholecystitis. Dictated by: Dictated on workstation # [id number]
== END ==
LOC: CARD 09:22
PROVIDERS: ATTEND Surgery
DX: R10.11 Right upper quadrant pain (principal)
CPT/HCPCS: 78227; A9537

== ENCOUNTER 2022-11-10 16:08 | Outpatient (CLI) | payer BC ==
[~2022-11-10] VITALS: Ht 172.7 cm; Wt 75.3 kg
[~2022-11-10 16:08] MED LIST changes: -ACHD5005 PO; -CATHETER FLUSH 10 ML SYR IVP PRN; -DOCU-143 PO; -ESCI20TA39 PO
[2022-11-10] MEDS ORDERED: ESCI20TA39 PO (16:43)
[2022-11-10] MEDS ORDERED: ACHD5005 PO (16:43)
[2022-11-11] MEDS ORDERED: DOCU-143 PO (13:15)
[2022-11-11] MEDS ORDERED: ACHD5005 PO (13:15)
== END 2022-11-10 17:06 | disposition home or self-care (01) ==
LOC: PREOP 16:08
PROVIDERS: ATTEND Surgery
DX: Z01.818 Encounter for other preprocedural examination (principal)

== ENCOUNTER 2022-11-11 10:44 | Day surgery (SDC) | payer BC ==
[2022-11-11] VITALS (11 sets, daily range): BP systolic 95–129; BP diastolic 50–94
[~2022-11-11] VITALS: Ht 172.7 cm; Wt 75.3 kg
[~2022-11-11 10:44] MED LIST changes: +ACHD5005 PO; +ESCI20TA39 PO
[2022-11-11] MEDS ORDERED: fentaNYL INJ 100 MCG/2 ML AMP ONE (11:02)
[2022-11-11] MEDS ORDERED: ONDANSETRON 4 MG/2 ML (SDV) Z0FRAN ONE ×2 (11:02→13:26)
[2022-11-11] MEDS ORDERED: MIDAZOLAM 2 MG/2 ML (VERSED) VIAL ONE (11:02)
[2022-11-11] MEDS ORDERED: LIDOCAINE PF 2% 5 ML (XYLOCAINE) VIAL ONE (11:02)
[2022-11-11] MEDS ORDERED: ROCURONIUM 50 MG/5 ML (ZEMURON) VIAL IV ONE (11:02)
[2022-11-11] MEDS ORDERED: proPOfol 200 MG/20 ML (DIPRIVAN) VIAL IV ONE (11:02)
--- NOTE | 2022-11-11 11:02 | Progress Note-Pre Operative ---
Pre-Operative Progress Note Date H&P Reviewed: Nov 11, 2022 Time H&P Reviewed: 11:02 History & Physical: H&P Reviewed, Patient Examed, No changes noted Pre-Operative Diagnosis: biliary dyskinesia STEPHEN LAL DO Nov 11, 2022 11:02
[2022-11-11] MEDS ORDERED: BUP/EPI 0.5% 1:200,000 (SENSORCAINE) 30 ML VIAL ONE (11:06)
[2022-11-11] MEDS: LACTATED RINGERS 1,000 ML IV PRN ×2 (11:13→12:20)
[2022-11-11] MEDS ORDERED: ceFAZolin INJECTION 2,000 MG in NS (IVPB) 50 ML IV ONE (11:15)
[2022-11-11] MEDS ORDERED: IOHEXOL 300 MG/ML 100 ML (OMNIPAQUE 300) VIAL INJ ONE (11:30)
[2022-11-11] MEDS ORDERED: SEVOFLURANE (ULTANE) 15 ML INHAL SOLN ONE (13:03)
[2022-11-11] MEDS ORDERED: NEOSTIGMINE (BLOXIVERZ ) 1 MG/1ML 10 ML VIAL ONE (13:05)
[2022-11-11] MEDS ORDERED: GLYCOPYRROLATE 0.2 MG/ML (ROBINUL) 2 ML VIAL ONE (13:06)
[2022-11-11] MEDS ORDERED: ACHD5005 PO (13:15)
[2022-11-11] MEDS ORDERED: DOCU-143 PO (13:15)
--- NOTE | 2022-11-11 13:17 | Discharge Inst-Simple/Standard ---
Discharge Inst-Standard Discharge Medications New, Converted or Re-Newed RX: Transmitted to Pharmacy Patient Instructions/Follow Up Plan of Care/Instructions/FU: 2 weeks reyna Activity as Tolerated: No Discharge Diet: Regular Diet Other Inst to Patient Follow up Appt: Make appointment for 2 weeks. Instructions: No lifting greater than 10 pounds. No strenuous activity. May shower in 24 hours, no tub bath or soaking. Use incentive spirometer at home as directed. No Smoking Skin/Wound Care: You have special glue over incision, it will fall off on it's own. Symptoms to Report: Appetite Changes, Extremity Discoloration, Numbness/Tingling, Swelling Increased, Bleeding Excessive, Eyesight Changes, Pain Increased, Urine Color Change, Constipation(Persistent), Fever over 101 degree F, Pain/Pressure in chest, Urinating Difficulty, Cough Up/Vomit Blood, Heart Beat Irreg/Pounding, Pain/Pressure in jaw, Vaginal Bleeding Increase, Cramps in feet or legs, Lightheadedness, Pain/Pressure in shoulder, Diarrhea(Persistent), Memory Changes Suddenly, Questions/Concerns, Weight gain consecutive days, Dizziness/Fainting, Nausea/Vomiting, Shortness of Breath, Weight gain over 2 pounds. If eyes or skin turn yellow notify physician. If questions or concerns contact your physician Or seek help at emergency department. STEPHEN LAL DO Nov 11, 2022 13:17
--- NOTE | 2022-11-11 13:20 | Anesthesia-General Post-Op ---
General Patient Condition Mental Status/LOC: Same as Preop Cardiovascular: Satisfactory Nausea/Vomiting: Absent Respiratory: Satisfactory Pain: Controlled Complications: Absent Post Op Complications Complications None Follow Up Care/Instructions Patient Instructions None needed. Anesthesia/Patient Condition Patient Condition Patient is doing well, no complaints, stable vital signs, no apparent adverse anesthesia problems. No complications reported per nursing. RASHAWN POLLARD CRNA Nov 11, 2022 13:20
[2022-11-11] MEDS ORDERED: morphine INJ 10 MG/ML 1ML (SYR OR VIAL) ONE (13:21)
--- NOTE | 2022-11-11 13:21 | Progress Note-Post Operative ---
Post-Operative Progess Note Surgeon (s)/Offc Spec (s) Surgeon STEPHEN LAL DO Offc Spec: Dr. Schwartz to assist in retraction dissection and closure. Pre-Operative Diagnosis biliary dyskinesia Post-Operative Diagnosis biliary dyskinesia, internal hernia secondary to omentum, foreign body intrabdominal into subcutaneous tissue Procedure & Operative Findings Date of Procedure 11/11/22 Procedure Performed/Findings lap heydi c ioc, removal foreign body, partial omentectomy and release of internal hernia Anesthesia Type general Estimated Blood Loss Estimated blood loss (mL): minimal Specimens/Packing Specimens Removed gallbladder, omentum Packing: surgicel STEPHEN LAL DO Nov 11, 2022 13:21
[2022-11-11] MEDS ORDERED: ONDANSETRON 4 MG/2 ML (SDV) Z0FRAN IVP PRN (13:30)
[2022-11-11] MEDS ORDERED: MEPERIDINE (DEMEROL) INJ 50 MG/ML IVP ONE (13:30)
[2022-11-11] MEDS ORDERED: HYDROmorphone 2 MG/ML VIAL (DILAUDID) IV ONE (13:30)
[2022-11-11] MEDS ORDERED: morphine INJ 10 MG/ML 1ML (SYR OR VIAL) IVP ONE (13:30)
[2022-11-11] MEDS ORDERED: HYDROcodone/APAP 5 MG/325 MG (LORTAB) TAB ONE (15:02)
[2022-11-11] MEDS ORDERED: HYDROcodone/APAP 5 MG/325 MG (LORTAB) TAB PO ONE (15:15)
--- NOTE | 2022-11-11 16:06 | Diagnostic Imaging Report ---
INDICATION: Fluoroscopy during intraoperative cholangiogram. Fluoroscopy was provided in the OR during intraoperative cholangiogram. Seven seconds of fluoroscopic time was utilized. Thirty-six images were obtained and demonstrate contrast being injected via the cystic duct remnant. Intrahepatic and extrahepatic bile ducts are slightly prominent but no filling defects are seen. Contrast does flow into the duodenum. IMPRESSION: Fluoroscopy during intraoperative cholangiogram. Dictated by: Dictated on workstation # [id number]
--- NOTE | 2022-11-11 19:28 | OPERATIVE REPORT ---
DATE OF SERVICE: 11/11/2022 PREOPERATIVE DIAGNOSIS: Biliary dyskinesia. POSTOPERATIVE DIAGNOSIS: Biliary dyskinesia, internal hernia secondary to omentum and foreign body intraabdominal into the subcutaneous tissue. PROCEDURE: Laparoscopic cholecystectomy with intraoperative cholangiogram and removal of foreign body, partial omentectomy and release of internal hernia. SURGEON: Stephen Ayala DO SURGICAL SERVICES ASST: Dr. Schwartz, assisted in retraction, dissection, and closure. ANESTHESIA: General. ESTIMATED BLOOD LOSS: Minimal. COMPLICATIONS: None. INDICATIONS: The patient is a 32-year-old female who has been having significant abdominal pain. She has a history of mini gastric bypass. She had a HIDA scan with ejection fraction of approximately 14%. She understands risks and benefits and wishes to proceed. Consent was signed on the chart. DESCRIPTION OF PROCEDURE: The patient was taken to the operating suite. She was prepped and draped in sterile fashion. Timeout was performed. Local anesthetic was infiltrated just above the umbilicus. An 11 blade scalpel was used to make a small skin incision. Cautery and blunt dissection was used to go down to the fascia, which was then scored open and 0 Vicryl was placed in a [id number] fashion for closure at the end of the case. A watts trocar was inserted into the abdomen. Pneumoperitoneum was achieved. Under direct visualization of laparoscope, a 5 mm trocar was placed in the subxiphoid region and two 5 mm trocars were placed in the right upper quadrant under direct visualization. The small bowel had dilated appearance throughout and the gallbladder had distended appearance. Evidence of mini gastric bypass of the stomach was visualized. Gallbladder was grasped and elevated. The cystic duct and cystic artery were then dissected out. Clips were placed on the proximal and distal portion of cystic artery and the distal portion of the cystic duct. There were quite a few adhesions to this area that had to be dissected down previously though. The cystic duct was then partially transected. Arrow catheter was inserted into the duct and cholangiogram was then performed. There were no filling defects. Contrast made its way into the duodenum without difficulty. The catheter was then removed. Clips were placed in the proximal portion of the cystic duct. The duct and the artery were then transected. Hook cautery was used to dissect the gallbladder from the gallbladder fossa achieving hemostasis. A piece of Surgicel was placed in the gallbladder fossa also after hemostasis was achieved. Gallbladder was placed in Endobag and removed through the 12 mm trocar site. The small bowel was then ran from the mini gastric bypass down distally. There was a piece of omentum that appeared to have caused an internal hernia, which the small bowel was decompressed through this area and distally as well. The small bowel was run all the way to the ileocecal valve or cecum. LigaSure was used to free up the omentum, which I think was partially causing an intermittent small-bowel obstruction possibly. There were also a foreign body within the abdomen, which went into the subcutaneous tissues. This is a known drain that was previously placed, which is no longer in use and she would like it to be removed if we were able to easily get to it. We were able to grasp it and it came out without difficulty. The entire drain was removed. Again, the abdomen was irrigated and suctioned. Hemostasis was achieved. The abdomen was then desufflated. The trocars were removed. The 12 mm fascial defect, the suture that was placed at the beginning of the case was then tied. The subcutaneous tissues were then closed using 4-0 Monocryl in subcuticular fashion. The abdomen was then washed and dried and skin Affix was placed over the incisions. The patient tolerated the procedure well without complications, taken to recovery room in stable condition. PLAN OF CARE: The patient will follow up in 2 weeks. Any issues before that, be seen at that time. Discharge instructions provided. Job ID: [id number] DocumentID: [id number] Dictated Date: 11/11/2022 13:54:33 Paper Machine Backtender Date: 11/11/2022 19:26:00 Dictated By: STEPHEN AYALA DO
[2022-11-18] MEDS ORDERED: AMOX1TAB12 PO (16:14)
[2022-11-18] MEDS ORDERED: METR-145 PO (16:14)
== END 2022-11-11 15:15 ==
LOC: SDC 10:44
PROVIDERS: ATTEND Surgery
DX: K81.1 Chronic cholecystitis (principal); K46.9 Unspecified abdominal hernia without obstruction or gangrene; S30.851A Superficial foreign body of abdominal wall, initial encounter; X58.XXXA Exposure to other specified factors, initial encounter; Z87.891 Personal history of nicotine dependence
CPT/HCPCS: 76000; 84703; 87081

== ENCOUNTER 2022-11-15 00:26 | Observation (INO) | payer BC ==
[~2022-11-15] VITALS: Ht 172.7 cm; Wt 76.1 kg
[2022-11-15] VITALS (7 sets, daily range): BP systolic 95–112; BP diastolic 42–63
[~2022-11-15 00:26] MED LIST changes: +DOCU-143 PO
[2022-11-15] MEDS ORDERED: fentaNYL INJ 100 MCG/2 ML AMP IVP PRN (01:15)
[2022-11-15] MEDS ORDERED: ONDANSETRON 4 MG/2 ML (SDV) Z0FRAN IVP PRN (01:15)
[2022-11-15] MEDS: NS IV 1000 ML 1,000 ML IV SCH ×3 (01:43→19:42)
[2022-11-15] MEDS: HYDROcodone/APAP 7.5 MG/325 MG (LORTAB, LORCET PLUS) TABLET PO PRN ×3 (01:44→15:21)
[2022-11-15] MEDS ORDERED: PIPERACILLIN SODIUM/TAZOBACTAM 4.5 GM in NS (IVPB) 100 ML IV ONE (02:00)
[2022-11-15] MEDS: PIPERACILLIN SODIUM/TAZOBACTAM 4.5 GM in NS (IVPB) 100 ML IV SCH ×3 (04:33→19:42)
[2022-11-15 05:03] LABS: BASOPHILS % (AUTO) 0 % (0-10); EOSINOPHILS # (AUTO) 0.1 10^3/uL (0.0-0.3); EOSINOPHILS % (AUTO) 1 % (0-10); HEMATOCRIT 34 % (35-52); HEMOGLOBIN 11.8 g/dL (11.5-16.0); LYMPHOCYTES # (AUTO) 1.7 10^3/uL (1.0-4.0); LYMPHOCYTES % (AUTO) 16 % (12-44); MEAN CORPUSCULAR HEMOGLOBIN 31 pg (25-34); MEAN CORPUSCULAR HGB CONC 34 g/dL (32-36); MEAN CORPUSCULAR VOLUME 90 fL (80-99); MEAN PLATELET VOLUME 10.7 fL (9.0-12.2); MONOCYTES # (AUTO) 0.7 10^3/uL (0.0-1.0); MONOCYTES % (AUTO) 7 % (0-12); NEUTROPHILS # (AUTO) 8.4 10^3/uL (1.8-7.8); NEUTROPHILS % (AUTO) 77 % (42-75); PLATELET COUNT 227 10^3/uL (130-400)
[2022-11-15 05:22] LABS: CALCIUM 8.1 MG/DL (8.5-10.1); CREATININE SERUM 0.62 MG/DL (0.60-1.30); POTASSIUM 3.6 MMOL/L (3.6-5.0)
--- NOTE | 2022-11-15 08:10 | History & Physical-Surgical ---
History of Present Illness History of Present Illness Patient Consulted On(ani/time) 11/15/22 08:03 Date Seen by Provider: Nov 15, 2022 Time Seen by Provider: 08:00 Reason for Visit: Post-Op Fever History of Present Illness Pt. is a 32yo Female POD4 from a laparoscopic cholecystectomy. She reported having no symptoms and was doing well post-op until POD3 when she had a self reported fever to 101.9 degrees as well as diffuse, crampy abdominal pain that she rated at a 10/10 severity. She went to the ER in [place] where they obtained a CT of her abdomen and pelvis which the patient claimed said she had an intra- abdominal abscess. She was started on IV antibiotics and transferred to [facility]. Today she endorses continued 10/10 pain which she still describes as crampy and pain all over. Her last BM was Tuesday. 32 year old female had lap heydi c ioc last . Was doing well until Tuesday and patient reported having fever of 101.9 and crampy abdominal pain. Patient went to [facility] where she had ct scan that suggested intraabdominal abscess and was transferred here. Patient still having pain she states and is in multiple locations of the abdomen but primarily lower abdomen. 10/10 pain with it radiating to her back. Currently NPO. Allergies and Home Medications Allergies Coded Allergies: No Known Drug Allergies (Unverified , 11/10/22) Patient Home Medication List Home Medication List Reviewed: Yes Escitalopram Oxalate (Escitalopram Oxalate) 20 Mg Tablet, 20 MG PO DAILY, (Reported) Entered as Reported by: Clara Jean on 11/10/22 1643 Last Action: Reviewed Omeprazole (Omeprazole) 20 Mg Capsule.dr, 20 MG PO DAILY, (Reported) Entered as Reported by: GINO NOBLE on 11/15/22 1351 Last Action: Reviewed Discontinued Medications Docusate Sodium (Colace) 100 Mg Capsule, 100 MG PO BID Discontinued Reason: No Longer Taking Prescribed by: STEPHEN LAL on 11/11/22 1315 Last Action: Discontinued Hydrocodone/Acetaminophen (Hydrocodone-Acetamin 5-325 mg) 5 Mg-325 Mg Tablet, 1 TAB PO Q4H PRN for PAIN-MODERATE (5-7) Discontinued Reason: No Longer Taking Prescribed by: STEPHEN LAL on 11/11/22 1316 Last Action: Discontinued Magnesium Citrate (Magnesium Citrate) 296 Ml Solution, 296 ML PO DAILY PRN PRN for CONSTIPATION-2ND LINE Discontinued Reason: No Longer Taking Prescribed by: SCOTT MELENDEZ on 11/04/22 1825 Omeprazole Magnesium (Prilosec Otc) 20 Mg Tablet.dr, 20 MG PO DAILY, (Reported) Discontinued Reason: No Longer Taking Entered as Reported by: ANUPAM LIPSCOMB on 09/18/18 1319 Last Action: Discontinued Oxycodone HCl/Acetaminophen (Percocet 5-325 mg Tablet) 1 Each Tablet, 1 TAB PO Q4H Discontinued Reason: No Longer Taking Prescribed by: AV THRASHER on 09/20/18 1248 Past Gqdndvg-Sazfiv-Freagd Hx Patient Social History Smoking Status: Current Everyday Smoker Former Smoker, Quit: May 20, 2021 Type Used: Cigarettes 2nd Hand Smoke Exposure: No Recent Hopitalizations: No Alcohol Use?: No Have you traveled recently?: No Immunizations Up To Date Tetanus Booster (TDap): Unknown Date of Influenza Vaccine: Jun 15, 2022 Seasonal Allergies Seasonal Allergies: No Surgeries History of Surgeries: Yes ([facility] [employer] BYPASS in [place], [place] SHOCK PLACEMENT X10) Surgeries: Section, Gallbladder Respiratory History of Respiratory Disorde: No Cardiovascular History of Cardiac Disorders: No Neurological History of Neurological Disord: No Reproductive System Hx Reproductive Disorders: No Sexually Transmitted Disease: No HIV/AIDS: No Female Reproductive Disorders: Menstrual Problems Genitourinary History of Genitourinary Disor: No Gastrointestinal History of Gastrointestinal Di: Yes Gastrointestinal Disorders: Gastroesophageal Reflux Musculoskeletal History of Musculoskeletal Dis: No Endocrine History of Endocrine Disorders: No HEENT History of HEENT Disorders: No Cancer History of Cancer: No Psychosocial History of Psychiatric Problem: Yes Behavioral Health Disorders: Anxiety Integumentary History of Skin or Integumenta: No Blood Transfusions History of Blood Disorders: No Adverse Reaction to a Blood Tr: No Reviewed Nursing Assessment Reviewed/Agree w Nursing PMH: Yes Family Medical History Significant Family History: No Pertinent Family Hx Review of Systems-General Constitutional: fever (subjective), malaise EENTM: No blurred vision, No double vision, No vision loss Respiratory: No cough, No dyspnea on exertion Cardiovascular: No chest pain, No palpitations Gastrointestinal: abdominal pain (diffuse, worse in the RLQ); No jaundice; nausea; No vomiting Genitourinary: No hematuria, No incontinence Musculoskeletal: back pain; No muscle cramps Skin: No lesions, No lumps, No pruritus Psychiatric/Neurological: Anxiety, Headache Physical Exam-General Problems Physical Exam Vital Signs Vital Signs - First Documented 11/15/22 01:06 Temp 36.3 Pulse 95 Resp 16 B/P (MAP) 95/51 (66) Pulse Ox 96 O2 Delivery Room Air Capillary Refill : General Appearance: WD/WN, mild distress HEENT: PERRL/EOMI, pharynx normal Neck: non-tender, supple Respiratory: chest non-tender, no respiratory distress, no accessory muscle use Cardiovascular: regular rate, rhythm, no JVD, no murmur Gastrointestinal: soft, tenderness (diffuse, worse in suprapubic area and RLQ) Back: normal inspection, no vertebral tenderness Extremities: no pedal edema, no calf tenderness Neurologic/Psychiatric: alert, oriented x 3 Skin: normal color, warm/dry, other (incisions c/d/i no signs of infection) Lymphatic: no adenopathy Data Review Labs Laboratory Tests 11/15/22 04:54: White Blood Count 11.0, Red Blood Count 3.82, Hemoglobin 11.8, Hematocrit 34L, Mean Corpuscular Volume 90, Mean Corpuscular Hemoglobin 31, Mean Corpuscular Hemoglobin Concent 34, Red Cell Distribution Width 12.1, Platelet Count 227, Mean Platelet Volume 10.7, Immature Granulocyte % (Auto) 0, Neutrophils (%) (Auto) 77H, Lymphocytes (%) (Auto) 16, Monocytes (%) (Auto) 7, Eosinophils (%) (Auto) 1, Basophils (%) (Auto) 0, Neutrophils # (Auto) 8.4H, Lymphocytes # (Auto) 1.7, Monocytes # (Auto) 0.7, Eosinophils # (Auto) 0.1, Basophils # (Auto) 0.0, Immature Granulocyte # (Auto) 0.0, Sodium Level 138, Potassium Level 3.6, Chloride Level 107, Carbon Dioxide Level 21, Anion Gap 10, Blood Urea Nitrogen 11, Creatinine 0.62, Estimat Glomerular Filtration Rate 121, BUN/Creatinine Ratio 18, Glucose Level 105, Calcium Level 8.1L Assessment/Plan Assessment/Plan Admission Diagonsis Post-Op ileus vs. SBO vs. Intra-abdominal abscess POD4 s/p laparoscopic cholecystectomy c IOC Abdominal pain-diffuse Nausea Subjective fever Admission Status: Observation Assessment/Plan Assessment Post-Op ileus vs. SBO vs. Intra-abdominal abscess POD4 s/p laparoscopic cholecystectomy c IOC Abdominal pain-diffuse Nausea Subjective fever Plan CT done in [place] showed evidence of dilated loops of bowel in lower abdomen Small bowel follow through showed no evidence of SBO WBC is 11.0, will monitor with AM labs Keep patient NPO Antibiotic coverage with Zosyn Pain control with fentenyl 25mcg q2hr prn Zofran 4mg q4hr PRN for nausea Has not had a fever since admission, will monitor with q4hr vitals Post-Op ileus vs. SBO vs. Intra-abdominal abscess POD4 s/p laparoscopic cholecystectomy c IOC Abdominal pain-diffuse Nausea Subjective fever CT done in [place] showed evidence of dilated loops of bowel in lower abdomen, the area of intrabdominal abscess i believe to be from placing Surgicel in the GB fossa, not an abscess, concern of dilated bowels so will get SBFT Small bowel follow through showed no evidence of SBO WBC is 11.0, will monitor with AM labs Strat on clears since SBFT normal Antibiotic coverage with Zosyn Pain control Zofran 4mg q4hr PRN for nausea Has not had a fever since admission, will monitor with q4hr vital Ambulate for dvt prophylaxis Supervisory-Addendum Brief Verification & Attestation Participated in pt care: history, MDM, physical Personally performed: exam, history, MDM, supervision of care Care discussed with: Medical Student Procedures: n/a Results interpretation: Verified all documentation Verification and Attestation of Medical Student E/M Service A medical student performed and documented this service in my presence. I reviewed and verified all information documented by the medical student and made modifications to such information, when appropriate. I personally performed the physical exam and medical decision making. Stephen Lal, Nov 15, 2022,13:10 RAMON BOSTON Nov 15, 2022 08:10 STEPHEN LAL DO Nov 15, 2022 23:06
[2022-11-15] MEDS: fentaNYL INJ 100 MCG/2 ML AMP IVP PRN ×3 (09:03→19:41)
[2022-11-15] MEDS ORDERED: DIATRIZOATE MEGLUM/SODIUM 37% 120 ML (GASTROGRAFIN) PO ONE (09:15)
--- NOTE | 2022-11-15 12:02 | Diagnostic Imaging Report ---
Small bowel follow-through. Indication: Abdominal pain The CT abdomen/pelvis exam performed on 11/14/2022 at [facility] noted a few fluid-filled segments of small bowel. The patient had undergone a laparoscopic cholecystectomy on 11/11/2022. On the necktie turner film of this exam there is some gas in both the large and small bowel in a nonspecific fashion. There is no evidence for a bowel obstruction. The patient swallowed the contrast material (Gastrografin) without difficulty. The transit time through small bowel was approximately 2 hours (normal transit time 30 minutes to 3 hours). The terminal ileum was not spotted but appears generally unremarkable. Impression: 1. There is no evidence for obstruction of the small bowel. 2. These results were discussed with Dr. Edvin Ayala. Dictated by: Dictated on workstation # [id number]
[2022-11-15] MEDS ORDERED: OMEP20CA18 PO (13:51)
[2022-11-15] MEDS: ACETAMINOPHEN 325 MG TABLET PO PRN ×2 (15:21→22:07)
--- NOTE | 2022-11-15 17:52 | Anesthesia-Procedure Note ---
Procedures/Interventions Procedure Start/Stop/Diagnosis Date of Procedure: Nov 15, 2022 Start Time: 17:40 Stop Time: 17:45 Central Line/IV Access IV : Location: Right Site: Antecubital IV Catheter Type: Peripheral IV IV Catheter Gauge: 22 ACOSTA MEAD CRNA Nov 15, 2022 17:52
[2022-11-16] MEDS: fentaNYL INJ 100 MCG/2 ML AMP IVP PRN ×3 (00:30→20:25)
[2022-11-16] MEDS: PIPERACILLIN SODIUM/TAZOBACTAM 4.5 GM in NS (IVPB) 100 ML IV SCH ×3 (03:30→20:24)
[2022-11-16 03:32] VITALS: BP 94/52
[2022-11-16] MEDS: NS IV 1000 ML 1,000 ML IV SCH ×3 (05:24→23:33)
[2022-11-16 05:39] LABS: HEMATOCRIT 33 % (35-52); HEMOGLOBIN 11.4 g/dL (11.5-16.0); MEAN CORPUSCULAR HEMOGLOBIN 31 pg (25-34); MEAN CORPUSCULAR HGB CONC 34 g/dL (32-36); MEAN CORPUSCULAR VOLUME 90 fL (80-99); MEAN PLATELET VOLUME 10.8 fL (9.0-12.2); PLATELET COUNT 199 10^3/uL (130-400); WHITE BLOOD COUNT 12.5 10^3/uL (4.3-11.0)
[2022-11-16 06:37] LABS: CALCIUM 8.6 MG/DL (8.5-10.1); CREATININE SERUM 0.58 MG/DL (0.60-1.30); POTASSIUM 3.6 MMOL/L (3.6-5.0)
[2022-11-16 07:01] VITALS: BP 121/71
--- NOTE | 2022-11-16 07:26 | Progress Note - Surgery ---
ZARINA HOUSER 11/16/22 0726: Subjective Date Seen by a Provider: Nov 16, 2022 Time Seen by a Provider: 07:19 Subjective/Events-last exam Today pt reports she is still feeling pain up to 9/10 in the abdomen, worst in RUQ, that improves with pain medication and worsens with movement. Pt states her pain tends to decrease when she eats, has tried Jello and clear broth. She had 6 watery BMs last night without blood or pain and is passing flatus. Does note some cramping before BMs that sometimes resolves after. Reports having chills and subjective fever overnight that improved with Tylenol. She is also having back pain that she describes as dull pressure in the right thoracic region. Reports some mild generalized itching of the skin. She has only ambulated around room, no walking halls. Started incentive spirometry this afternoon. Notes she takes omeprazole regularly, but has not taken it since before surgery. Denies CP, SOB, n/v, headache, dizziness, sick contacts. Review of Systems General: Chills, Night Sweats HEENT: No Head Aches, No Visual Changes Pulmonary: No Dyspnea, No Cough Cardiovascular: No: Chest Pain, Edema Gastrointestinal: Abdominal Pain, Diarrhea; No: Nausea, Vomiting, Hematochezia Genitourinary: No Dysuria, No Frequency Musculoskeletal: back pain; No: leg pain Neurological: No: Weakness, Confusion Objective Exam Vital Signs Date Time Temp Pulse Resp B/P (MAP) Pulse Ox O2 Delivery O2 Flow Rate FiO2 11/16/22 07:01 36.4 45 18 121/71 (88) 97 Room Air 11/16/22 03:32 36.3 51 16 94/52 (66) 97 Room Air 11/15/22 23:10 37.2 68 16 98/51 (67) 98 Room Air 11/15/22 20:00 Room Air 11/15/22 19:52 36.7 11/15/22 19:48 37.6 69 16 107/59 (75) 98 Room Air 11/15/22 16:23 37.4 11/15/22 15:26 37.6 78 14 112/63 (79) 98 Room Air 11/15/22 15:21 37.6 11/15/22 11:25 36.0 61 20 105/56 (72) 99 Room Air 11/15/22 08:00 98 Room Air 11/15/22 07:38 36.3 59 18 98/42 (60) 98 Room Air I & O 11/16/22 07:00 Intake Total 370 ml Balance 370 ml Capillary Refill : General Appearance: No Apparent Distress, WD/WN HEENT: PERRL/EOMI, Moist Mucous Membranes Neck: Full Range of Motion, Non Tender, Supple Respiratory: Chest Non Tender, Lungs Clear, Normal Breath Sounds, No Accessory Muscle Use, No Respiratory Distress Cardiovascular: Regular Rate, Rhythm, No Edema, Normal Peripheral Pulses Peripheral Pulses: 2+ Dorsalis Pedis (R), 2+ Left Dors-Pedis (L), 2+ Radial Pulses (R), 2+ Radial Pulses (L) Gastrointestinal: normal bowel sounds, soft, tenderness (diffuse, worst RUQ- improved from yesterday) Extremity: Normal Capillary Refill, Non Tender, No Pedal Edema Neurologic/Psychiatric: Alert, Oriented x3, No Motor/Sensory Deficits, Normal Mood/Affect Skin: Normal Color, Warm/Dry, Other (abdominal incisions c/d/i) Lymphatic: No Adenopathy Other comments right paraspinal tenderness and hypertonicity in the thoracic region Results Lab Laboratory Tests 11/16/22 05:11: White Blood Count 12.5H, Red Blood Count 3.70L, Hemoglobin 11.4L, Hematocrit 33L , Mean Corpuscular Volume 90, Mean Corpuscular Hemoglobin 31, Mean Corpuscular Hemoglobin Concent 34, Red Cell Distribution Width 11.9, Platelet Count 199, Mean Platelet Volume 10.8, Sodium Level 137, Potassium Level 3.6, Chloride Level 108H, Carbon Dioxide Level 20L, Anion Gap 9, Blood Urea Nitrogen 5L, Creatinine 0.58L, Estimat Glomerular Filtration Rate 123, BUN/Creatinine Ratio 9, Glucose Level 95, Calcium Level 8.6 Assessment/Plan Assessment/Plan Assessment/Plan Assessment Post-Op ileus vs. SBO vs. Intra-abdominal abscess POD5 s/p laparoscopic cholecystectomy c IOC Abdominal pain-diffuse, improved Nausea- resolved Subjective fever Back pain, thoracic Bradycardia, asymptomatic Plan CT done in [place] showed evidence of dilated loops of bowel in lower abdomen, the area of intrabdominal abscess Dr. Ayala believed to be from placing Surgicel in the GB fossa, not an abscess Small bowel follow through showed no evidence of SBO WBC is 12.5 up from 11 on admission here, continue to monitor Soft diet as tolerated Antibiotic coverage with Zosyn Pain control Zofran 4mg q4hr PRN for nausea Has not had a fever since admission, continue to monitor Ambulate for dvt prophylaxis Start carafate and ppi for possible ulcer Discussed she should try laying on left side to help with pain Consult internal medicine appreciated Add TSH to assess thyroid function STEPHEN AYALA DO 11/16/222218: Subjective Subjective/Events-last exam Feeling a little better today. Primarily with back pain. 02/21 pain. Had multiple loose stools. Passing flatus. Tolerating clears. Reports subjective fever and took Tylenol. Ambulating. Wanting food. Objective Exam General Appearance: No Apparent Distress, WD/WN HEENT: PERRL/EOMI, Normal ENT Inspection Neck: Full Range of Motion, Non Tender, Supple Respiratory: Chest Non Tender, No Accessory Muscle Use, No Respiratory Distress Cardiovascular: Regular Rate, Rhythm, No JVD Gastrointestinal: normal bowel sounds, soft, tenderness (diffuse, worst RUQ- improved from yesterday) Extremity: Normal Capillary Refill, Non Tender Neurologic/Psychiatric: Alert, Oriented x3 Skin: Normal Color, Warm/Dry, Other (abdominal incisions c/d/i) Lymphatic: No Adenopathy Assessment/Plan Assessment/Plan Assessment/Plan Post-Op ileus vs. SBO vs. Intra-abdominal abscess POD5 s/p laparoscopic cholecystectomy c IOC Abdominal pain-diffuse, improved Nausea- resolved Subjective fever Back pain, thoracic Bradycardia, asymptomatic CT done in [place] showed evidence of dilated loops of bowel in lower abdomen, the area of intrabdominal abscess feel to be from placing Surgicel in the GB fossa, not an abscess Small bowel follow through showed no evidence of SBO WBC is 12.5 up from 11 on admission here, continue to monitor Soft diet as tolerated Antibiotic coverage with Zosyn Pain control Zofran 4mg q4hr PRN for nausea Has not had a fever since admission, continue to monitor Ambulate for dvt prophylaxis Carafate and Protonixfor possible ulcer Consult internal medicine appreciated Add TSH to assess thyroid function episode of bradycardia, is asymptomatic. States heart rate has been in 40's previous to admission. EKG and Tele, Discussed with nurse and Dr. Alonso. Supervisory-Addendum Brief Verification & Attestation Participated in pt care: history, MDM, physical Personally performed: exam, history, MDM, supervision of care Care discussed with: Medical Student Procedures: n/a Results interpretation: Verified all documentation Verification and Attestation of Medical Student E/M Service A medical student performed and documented this service in my presence. I reviewed and verified all information documented by the medical student and made modifications to such information, when appropriate. I personally performed the physical exam and medical decision making. Stephen Ayala, Nov 16, 2022,22:19 ZARINA HOUSER Nov 16, 2022 07:26 STEPHEN AYALA DO Nov 16, 2022 22:19
[2022-11-16] MEDS: ACETAMINOPHEN 325 MG TABLET PO PRN (07:47)
[2022-11-16] MEDS: PANTOPRAZOLE 40 MG (PROTONIX) TAB PO SCH (09:14)
[2022-11-16] MEDS: SUCRALFATE 1 GM (CARAFATE) TAB PO SCH ×3 (11:10→20:25)
[2022-11-16 11:22] VITALS: BP 118/56
[2022-11-16] MEDS: HYDROcodone/APAP 7.5 MG/325 MG (LORTAB, LORCET PLUS) TABLET PO PRN ×2 (12:50→23:34)
[2022-11-16 15:17] VITALS: BP 114/60
[2022-11-16 19:59] VITALS: BP 105/57
[2022-11-16 23:35] VITALS: BP 108/64
[2022-11-17] MEDS: ACETAMINOPHEN 325 MG TABLET PO PRN (02:57)
[2022-11-17] MEDS: NS IV 1000 ML 1,000 ML IV SCH ×2 (03:33→15:39)
[2022-11-17] MEDS: PIPERACILLIN SODIUM/TAZOBACTAM 4.5 GM in NS (IVPB) 100 ML IV SCH ×3 (03:33→20:36)
[2022-11-17 03:35] VITALS: BP 98/45
[2022-11-17] MEDS: HYDROcodone/APAP 7.5 MG/325 MG (LORTAB, LORCET PLUS) TABLET PO PRN ×2 (04:50→20:36)
[2022-11-17 05:41] LABS: HEMATOCRIT 34 % (35-52); HEMOGLOBIN 11.6 g/dL (11.5-16.0); MEAN CORPUSCULAR HEMOGLOBIN 31 pg (25-34); MEAN CORPUSCULAR HGB CONC 34 g/dL (32-36); MEAN CORPUSCULAR VOLUME 91 fL (80-99); MEAN PLATELET VOLUME 11.1 fL (9.0-12.2); PLATELET COUNT 210 10^3/uL (130-400)
[2022-11-17 05:54] LABS: ALBUMIN 3.3 GM/DL (3.2-4.5); POTASSIUM 3.4 MMOL/L (3.6-5.0)
[2022-11-17 05:55] LABS: CALCIUM 8.6 MG/DL (8.5-10.1)
[2022-11-17 05:57] LABS: TOTAL PROTEIN 5.7 GM/DL (6.4-8.2)
[2022-11-17 06:00] LABS: CREATININE SERUM 0.58 MG/DL (0.60-1.30)
[2022-11-17] MEDS: SUCRALFATE 1 GM (CARAFATE) TAB PO SCH ×4 (06:01→20:35)
[2022-11-17 06:46] LABS: BILIRUBIN,TOTAL 0.8 MG/DL (0.1-1.0)
--- NOTE | 2022-11-17 07:07 | Progress Note - Surgery ---
RAMON BOSTON 11/17/22 0707: Subjective Date Seen by a Provider: Nov 17, 2022 Time Seen by a Provider: 07:00 Subjective/Events-last exam Patient claims her pain has improved to a 6/10, she had just received pain medicine. She is tolerating her diet well, she has had several loose stools this AM. She is ambulating in the halls and to use the restroom. Says she is using the IS several times a day. Has not felt feverish today. Review of Systems General: No Chills, No Night Sweats; Fatigue Pulmonary: No Dyspnea, No Cough Cardiovascular: No: Chest Pain, Palpitations Gastrointestinal: Abdominal Pain, Diarrhea; No: Nausea, Vomiting Genitourinary: No Dysuria, No Frequency, No Hematuria Musculoskeletal: back pain (thoracic, no midline tenderness, no SP tenderness, located along the left ribs) Neurological: No: Numbness, Confusion Objective Exam Vital Signs Date Time Temp Pulse Resp B/P (MAP) Pulse Ox O2 Delivery O2 Flow Rate FiO2 11/17/22 03:36 36.8 11/17/22 03:35 55 17 98/45 (62) 95 Room Air 11/17/22 01:06 60 11/17/22 00:00 37.0 11/16/22 23:35 45 33 108/64 (79) 99 Room Air 11/16/22 20:00 98 Room Air 11/16/22 19:59 36.9 51 20 105/57 (73) 98 Room Air 11/16/22 19:00 71 11/16/22 16:28 45 11/16/22 15:17 36.3 55 18 114/60 (78) 100 Room Air 11/16/22 11:22 36.5 50 18 118/56 (76) 99 Room Air 11/16/22 08:05 Room Air I & O 11/17/22 07:00 Intake Total 2372 ml Balance 2372 ml Capillary Refill : General Appearance: No Apparent Distress, WD/WN HEENT: PERRL/EOMI, Normal ENT Inspection Neck: Non Tender, Supple Respiratory: Chest Non Tender, Lungs Clear, Normal Breath Sounds, No Accessory Muscle Use, No Respiratory Distress Cardiovascular: Regular Rate, Rhythm, Normal Peripheral Pulses Peripheral Pulses: 2+ Dorsalis Pedis (R), 2+ Left Dors-Pedis (L), 2+ Radial Pulses (R), 2+ Radial Pulses (L) Gastrointestinal: normal bowel sounds, soft, tenderness (diffuse, worst RUQ- improved from yesterday) Extremity: Non Tender, No Calf Tenderness Neurologic/Psychiatric: Alert, Oriented x3 Skin: Normal Color, Warm/Dry, Other (abdominal incisions c/d/i) Lymphatic: No Adenopathy Results Lab Laboratory Tests 11/17/22 05:13: White Blood Count 13.0H, Red Blood Count 3.74L, Hemoglobin 11.6, Hematocrit 34L, Mean Corpuscular Volume 91, Mean Corpuscular Hemoglobin 31, Mean Corpuscular Hemoglobin Concent 34, Red Cell Distribution Width 11.9, Platelet Count 210, Mean Platelet Volume 11.1, Sodium Level 139, Potassium Level 3.4L, Chloride Level 109H, Carbon Dioxide Level 21, Anion Gap 9, Blood Urea Nitrogen 4L, Creatinine 0.58L, Estimat Glomerular Filtration Rate 123, BUN/Creatinine Ratio 7, Glucose Level 86, Calcium Level 8.6, Corrected Calcium 9.2, Total Bilirubin 0.8, Aspartate Amino Transf (AST/SGOT) 41H, Alanine Aminotransferase (ALT/SGPT) 181H, Alkaline Phosphatase 139H, Total Protein 5.7L, Albumin 3.3 Assessment/Plan Assessment/Plan Assessment/Plan Post-Op ileus vs. SBO vs. Intra-abdominal abscess POD6 s/p laparoscopic cholecystectomy c IOC Abdominal pain-diffuse, improved Elevated LFTs Nausea- resolved Subjective fever Back pain, thoracic Bradycardia, asymptomatic CT done in [place] showed evidence of dilated loops of bowel in lower abdomen, the area of intrabdominal abscess feel to be from placing Surgicel in the GB fossa, not an abscess Small bowel follow through showed no evidence of SBO WBC is 13 up from 11 on admission here, continue to monitor With WBC increasing, plan to go over films again with Dr. Orantes, consider repeating CT scan, will obtain HIDA scan today Soft diet as tolerated Antibiotic coverage with Zosyn and flagyl Pain control Zofran 4mg q4hr PRN for nausea Has not had a fever since admission, continue to monitor Ambulate for dvt prophylaxis Carafate and Protonix for possible ulcer Consult internal medicine appreciated Episode of bradycardia, is asymptomatic. States heart rate has been in 40's previous to admission. EKG completed and showed sinus harjit Discussed with nurse and Dr. Alonso. STEPHEN LAL DO 11/23/222157: Subjective Subjective/Events-last exam Pain improving slightly. Tolerating diet. Loose stools. Increasing activity. Denies n/v fever sweats chills shortness of breath or chest pain at this time. Objective Exam General Appearance: No Apparent Distress, WD/WN, Anxious HEENT: PERRL/EOMI, Normal ENT Inspection Neck: Non Tender, Supple Respiratory: Chest Non Tender, No Accessory Muscle Use, No Respiratory Distress Cardiovascular: Regular Rate, Rhythm, No JVD Gastrointestinal: soft, tenderness (RUQ- improved from yesterday) Extremity: Non Tender, No Calf Tenderness Neurologic/Psychiatric: Alert, Oriented x3 Skin: Normal Color, Warm/Dry Lymphatic: No Adenopathy Assessment/Plan Assessment/Plan Assessment/Plan Post-Op ileus vs. SBO vs. Intra-abdominal abscess POD6 s/p laparoscopic cholecystectomy c IOC Abdominal pain-diffuse, improved Elevated LFTs Nausea- resolved Subjective fever Back pain, thoracic Bradycardia, asymptomatic CT done in [place] showed evidence of dilated loops of bowel in lower abdomen, the area of intrabdominal abscess feel to be from placing Surgicel in the GB fossa, not an abscess Small bowel follow through showed no evidence of SBO WBC is 13 up from 11 on admission here, continue to monitor With WBC increasing, plan to go over films again with Dr. Orantes, consider repeating CT scan, will obtain HIDA scan today Soft diet as tolerated Antibiotic coverage with Zosyn and flagyl Pain control Zofran 4mg q4hr PRN for nausea Has not had a fever since admission, continue to monitor Ambulate for dvt prophylaxis Carafate and Protonix for possible ulcer Consult internal medicine appreciated Episode of bradycardia, is asymptomatic. States heart rate has been in 40's previous to admission. EKG completed and showed sinus harjit Discussed with nurse and Dr. Alonso. Supervisory-Addendum Brief Verification & Attestation Participated in pt care: history, MDM, physical Personally performed: exam, history, MDM, supervision of care Care discussed with: Medical Student Procedures: n/a Results interpretation: Verified all documentation Verification and Attestation of Medical Student E/M Service A medical student performed and documented this service in my presence. I reviewed and verified all information documented by the medical student and made modifications to such information, when appropriate. I personally performed the physical exam and medical decision making. Stephen Lal, Nov 17, 2022,21:58 RAMON BOSTON Nov 17, 2022 07:07 STEPHEN LAL DO Nov 23, 2022 21:58
[2022-11-17] MEDS: PANTOPRAZOLE 40 MG (PROTONIX) TAB PO SCH (08:36)
--- NOTE | 2022-11-17 11:05 | Consultation - Hospitalist ---
HPI History of Present Illness: HPI/Chief Complaint Pt is a 32yoCF with a PMH of mini gastric bypass and recent lap heydi who presented to the ER due to fever. She has had intermittant abd pain as well. She was admitted by surgery and had been on IV abx. She had been doing better but yesterday was bradycardiac. I was consulted for this. She reports he heart rate occasionally is low into the 40s at home. She denies any symptoms and was up walking in her room when I was there. Her heart rate was in the 70s. She was requesting discharge home so she could see her son. Source: patient Date Seen 11/17/22 Attending Physician Patrick Lake MD PCP Admitting Physician: Karan So MD Attending Physician: Karan So MD Referring Physician Date of Admission Nov 15, 2022 at 00:57 Home Medications & Allergies Home Medications Reviewed patient Home Medication Reconciliation performed by pharmacy medication reconciliations wellfield technician and/or nursing. Patients Allergies have been reviewed. Allergies Allergies Coded Allergies No Known Drug Allergies (Unverified11/10/22) Past Wsvqkeo-Htcsci-Acrvax Hx Patient Social History Tobacco Use?: Yes Tobacco type used: Cigarettes Smoking Status: Current Everyday Smoker Smokeless Tobacco Frequency: Never a User Use of E-Cig and/or Vaping dev: No Substance use?: No Alcohol Use?: No Additional Alcohol Comments: history of etoh abuse Pt feels they are or have been: No Immunizations Up To Date Date of Influenza Vaccine: Jun 15, 2022 First/Initial COVID19 Vaccinat: 02/2021 Second COVID19 Vaccination Bill: 03/19/2021 Tetanus Booster (TDap): Unknown Seasonal Allergies Seasonal Allergies: No Current Status status: No status: No Advance Directives: No Communicates: Verbally Primary Language: Kuwaiti Preferred Spoken Language: Kuwaiti Is interpretation needed?: No Implanted or Applied Medical D: Contraceptive device Past Medical History Surgeries: Section, Gallbladder Sexually Transmitted Disease: No HIV/AIDS: No Gastroesophageal Reflux Anxiety Blood Disorders: No Adverse Reaction/Blood Tranf: No Family Medical History No Pertinent Family Hx Review of Systems Constitutional: see HPI Physical Exam Physical Exam Vital Signs Vital Signs - First Documented 11/15/22 01:06 Temp 36.3 Pulse 95 Resp 16 B/P (MAP) 95/51 (66) Pulse Ox 96 O2 Delivery Room Air Capillary Refill : Height, Weight, BMI Height: 5'8.00" Weight: 207lbs. 0.0oz. 93.479397om; 26.01 BMI Method:Stated General Appearance: No Apparent Distress, WD/WN Respiratory: Lungs Clear, No Accessory Muscle Use, No Respiratory Distress Cardiovascular: Regular Rate, Rhythm, No Murmur, Normal Peripheral Pulses Neurologic/Psychiatric: Alert, Oriented x3, Normal Mood/Affect Skin: Normal Color, Warm/Dry, Other Lymphatic: No Adenopathy Results Results/Procedures Labs Laboratory Tests 11/16/22 05:11 11/17/22 05:13 Patient resulted labs reviewed. Assessment/Plan Assessment and Plan Assess & Plan/Chief Complaint Bradycardia Has since resolved and patient reports not abnormal for her In the 70s this AM EKG confirmed sinus and T wave inversion noted but present since 2011 Consider holter or event monitor as an outpatient Maintain on Telemetry Abd pain Continue IV abx HIDA scan ordered per surgery Management per primary MARY ESTRADA MD Nov 17, 2022 11:05
--- NOTE | 2022-11-17 14:10 | Diagnostic Imaging Report ---
INDICATION: Status post cholecystectomy. Study is performed evaluate for bile leak. Patient was administered 5.4 mCi technetium 99 M Choletec intravenously and imaging over the abdomen was performed. There is homogeneous uptake of activity by the liver. Prompt excretion of activity into the common duct is noted with normal passage into the small bowel. No abnormal accumulation of activity is identified to suggest bile leak. IMPRESSION: No evidence of bile leak. Dictated by: Dictated on workstation # [id number]
[2022-11-17] MEDS: metroNIDAZOLE 500MG/100ML IVPB 100 ML IV SCH ×2 (15:39→23:56)
[2022-11-17 15:56] VITALS: BP 114/66
[2022-11-17 20:00] VITALS: BP 117/59
[2022-11-18] VITALS (7 sets, daily range): BP systolic 92–109; BP diastolic 43–63
[2022-11-18] MEDS: NS IV 1000 ML 1,000 ML IV SCH ×2 (02:00)
[2022-11-18] MEDS: HYDROcodone/APAP 7.5 MG/325 MG (LORTAB, LORCET PLUS) TABLET PO PRN (05:08)
[2022-11-18] MEDS: SUCRALFATE 1 GM (CARAFATE) TAB PO SCH ×2 (05:08→12:00)
[2022-11-18] MEDS: PIPERACILLIN SODIUM/TAZOBACTAM 4.5 GM in NS (IVPB) 100 ML IV SCH ×2 (05:09→13:44)
[2022-11-18] MEDS: metroNIDAZOLE 500MG/100ML IVPB 100 ML IV SCH ×2 (05:09→14:01)
[2022-11-18 05:16] LABS: HEMATOCRIT 34 % (35-52); HEMOGLOBIN 11.6 g/dL (11.5-16.0); MEAN CORPUSCULAR HEMOGLOBIN 31 pg (25-34); MEAN CORPUSCULAR HGB CONC 34 g/dL (32-36); MEAN CORPUSCULAR VOLUME 90 fL (80-99); MEAN PLATELET VOLUME 11.1 fL (9.0-12.2); PLATELET COUNT 276 10^3/uL (130-400); WHITE BLOOD COUNT 12.7 10^3/uL (4.3-11.0)
[2022-11-18 05:23] LABS: ALBUMIN 3.4 GM/DL (3.2-4.5); POTASSIUM 3.5 MMOL/L (3.6-5.0)
[2022-11-18 05:24] LABS: CALCIUM 8.7 MG/DL (8.5-10.1)
[2022-11-18 05:25] LABS: TOTAL PROTEIN 6.1 GM/DL (6.4-8.2)
[2022-11-18 05:27] LABS: BILIRUBIN,TOTAL 0.6 MG/DL (0.1-1.0)
[2022-11-18 05:29] LABS: CREATININE SERUM 0.68 MG/DL (0.60-1.30)
--- NOTE | 2022-11-18 07:16 | Progress Note - Surgery ---
RAMON BOSTON 11/18/22 0716: Subjective Date Seen by a Provider: Nov 18, 2022 Time Seen by a Provider: 06:50 Subjective/Events-last exam Patient is feeling much better today. She claimed her abdominal pain is improved and is at a 3 today. She is ambulating in the halls, using the restroom indepe ndently. Has had several BMs in the past day. Her main concern is that when she gets home this will all happen again because since arriving at the hospital she has not had any real food. Review of Systems General: No Chills, No Night Sweats HEENT: No Dysphasia, No Sore Throat Pulmonary: No Dyspnea, No Cough Cardiovascular: No: Chest Pain, Palpitations, Lt Headedness Gastrointestinal: Abdominal Pain (ruq); No: Nausea, Vomiting Genitourinary: No Dysuria, No Frequency Musculoskeletal: back pain Neurological: No: Weakness, Confusion Objective Exam Vital Signs Date Time Temp Pulse Resp B/P (MAP) Pulse Ox O2 Delivery O2 Flow Rate FiO2 11/18/22 04:00 37.1 45 18 103/55 (71) 95 Room Air 11/18/22 01:00 50 11/18/22 00:00 48 20 92/43 (59) 95 Room Air 11/17/22 20:00 36.7 47 20 117/59 (78) 100 Room Air 11/17/22 20:00 97 Room Air 11/17/22 19:00 60 11/17/22 15:56 36.8 58 16 114/66 (82) 96 Room Air 11/17/22 12:38 63 18 96 Room Air 11/17/22 12:30 55 11/17/22 08:00 96 Room Air I & O 11/18/22 06:59 Intake Total 1700 ml Balance 1700 ml Capillary Refill : General Appearance: No Apparent Distress, WD/WN HEENT: PERRL/EOMI, Pharynx Normal Neck: Non Tender, Supple Respiratory: Lungs Clear, No Accessory Muscle Use, No Respiratory Distress Cardiovascular: No Murmur, Normal Peripheral Pulses, Bradycardia Peripheral Pulses: 2+ Dorsalis Pedis (R), 2+ Left Dors-Pedis (L), 2+ Radial Pulses (R), 2+ Radial Pulses (L) Gastrointestinal: normal bowel sounds, soft, tenderness (localized to RUQ, better than yesterday) Extremity: No Calf Tenderness, No Pedal Edema Neurologic/Psychiatric: Alert, Oriented x3, Normal Mood/Affect Skin: Normal Color, Warm/Dry, Other Lymphatic: No Adenopathy Results Lab Laboratory Tests 11/18/22 04:41: White Blood Count 12.7H, Red Blood Count 3.75L, Hemoglobin 11.6, Hematocrit 34L, Mean Corpuscular Volume 90, Mean Corpuscular Hemoglobin 31, Mean Corpuscular Hemoglobin Concent 34, Red Cell Distribution Width 11.8, Platelet Count 276, Mean Platelet Volume 11.1, Sodium Level 140, Potassium Level 3.5L, Chloride Level 109H, Carbon Dioxide Level 23, Anion Gap 8, Blood Urea Nitrogen 5L, Creatinine 0.68, Estimat Glomerular Filtration Rate 119, BUN/Creatinine Ratio 7, Glucose Level 87, Calcium Level 8.7, Corrected Calcium 9.2, Total Bilirubin 0.6, Aspartate Amino Transf (AST/SGOT) 21, Alanine Aminotransferase (ALT/SGPT) 123H, Alkaline Phosphatase 131, Total Protein 6.1L, Albumin 3.4 Assessment/Plan Assessment/Plan Assessment/Plan Post-Op ileus vs. SBO vs. Intra-abdominal abscess POD7 s/p laparoscopic cholecystectomy c IOC Abdominal pain-localized to RUQ, improved Elevated LFTs- improving Nausea- resolved Subjective fever Back pain, thoracic Bradycardia, asymptomatic CT done in [place] showed evidence of dilated loops of bowel in lower abdomen, the area of intrabdominal abscess feel to be from placing Surgicel in the GB fossa, not an abscess Small bowel follow through showed no evidence of SBO WBC is 12.7 up from 11 on admission here, continue to monitor HIDA scan yesterday showed no evidence of bile leak Advance to normal diet as tolerated Antibiotic coverage with Zosyn and flagyl Pain control Zofran 4mg q4hr PRN for nausea Has not had a fever since admission, continue to monitor Ambulate for dvt prophylaxis Carafate and Protonix for possible ulcer Consult internal medicine appreciated Episode of bradycardia, is asymptomatic. States heart rate has been in 40's previous to admission. EKG completed and showed sinus harjit Discussed with nurse and Dr. Alonso. STEPHEN AYALA DO 11/23/22 2202: Subjective Subjective/Events-last exam Feeling better. Currently without pain. Tolerating diet. Having bowel function. Wanting to go home. Denies n/v fever sweats chills shortness of breath or chest pain. Hida no leak. Objective Exam General Appearance: No Apparent Distress, WD/WN HEENT: PERRL/EOMI, Normal ENT Inspection Neck: Non Tender, Supple Respiratory: Chest Non Tender, No Accessory Muscle Use, No Respiratory Distress Cardiovascular: No JVD, Bradycardia Gastrointestinal: soft, tenderness (minimal ruq significantly improved compared to previous exams) Extremity: Non Tender, No Calf Tenderness Neurologic/Psychiatric: Alert, Oriented x3, Normal Mood/Affect Skin: Normal Color, Warm/Dry Lymphatic: No Adenopathy Assessment/Plan Assessment/Plan Assessment/Plan Post-Op ileus vs. SBO vs. Intra-abdominal abscess POD7 s/p laparoscopic cholecystectomy c IOC Abdominal pain-localized to RUQ, improved Elevated LFTs- improving Nausea- resolved Subjective fever Back pain, thoracic Bradycardia, asymptomatic CT done in [place] showed evidence of dilated loops of bowel in lower abdomen, the area of intrabdominal abscess feel to be from placing Surgicel in the GB fossa, not an abscess Small bowel follow through showed no evidence of SBO WBC is 12.7 up from 11 on admission here, continue to monitor HIDA scan yesterday showed no evidence of bile leak Advance to normal diet as tolerated Antibiotic coverage with Zosyn and flagyl Pain control Zofran 4mg q4hr PRN for nausea Has not had a fever since admission, continue to monitor Ambulate for dvt prophylaxis Carafate and Protonix for possible ulcer Consult internal medicine appreciated Episode of bradycardia, is asymptomatic. States heart rate has been in 40's previous to admission. EKG completed and showed sinus harjit Discussed with nurse and Dr. Alonso Await cardiology. Clinically she is doing well, and patient is wanting to go home. Will likely dc home unless cardiology doesn't okay. Supervisory-Addendum Brief Verification & Attestation Participated in pt care: history, MDM, physical Personally performed: exam, history, MDM, supervision of care Care discussed with: Medical Student Procedures: n/a Results interpretation: Verified all documentation Verification and Attestation of Medical Student E/M Service A medical student performed and documented this service in my presence. I reviewed and verified all information documented by the medical student and made modifications to such information, when appropriate. I personally performed the physical exam and medical decision making. Stephen Ayala, Nov 18, 2022,22:02 RAMON BOSTON Nov 18, 2022 07:16 STEPHEN AYALA DO Nov 23, 2022 22:02
[2022-11-18] MEDS: PANTOPRAZOLE 40 MG (PROTONIX) TAB PO SCH (08:29)
--- NOTE | 2022-11-18 09:59 | Consultation-Cardiology ---
HPI-Cardiology Cardiology Consultation: Date of Consultation 11/18/22 Time Seen by a Provider: 08:50 Date of Admission 11-15-22 Attending Physician Patrick Lake MD Admitting Physician Admitting Physician: Karan So MD Attending Physician: Karan So MD Consulting Physician Jennie Link MD HPI: Chief Complaint: Bradycardia Ms. Butler is a 32 yr old female who we have been asked to see in 509 d/t bradycardia. She reports she had a cholecystectomy approx 1 week ago. She reports on Tuesday night at home she developed fever and chills. She reports she went to the [facility] and they transferred her to [facility]. She denies any c/o CP, palpitations, syncope or near syncope at this time. No c/o shortness of breath. No c/o n/v/d. She states she feels well and wants to go home. She reports approx a year ago she was at home and got up quickly from the couch and nearly passed out. She reports she was taken to the [facility] and they did not determine anything. She reports she wore a 72 HR heart monitor and nothing was found. Review of Systems-Cardiology Review of Systems Constitutional: As described under HPI Eyes: No vision change Ears/Nose/Throat: No epistaxis, No recent hearing loss Respiratory: As described under HPI Cardiovascular: As described under HPI Gastrointestinal: As described under HPI Genitourinary: No dysuria, No hematuria Skin: No rash on exposed areas, No ulcerations on exposed areas Psychiatric/Neurological: anxiety; No seizure, No focal weakness, No syncope Hematologic: No bleeding abnormalities RDS-Cutcen-Phztih Hx Patient Social History Smoking Status: Current Everyday Smoker 2nd Hand Smoke Exposure: No Have you traveled recently?: No Alcohol Use?: No Pt feels they are or have been: No Tobacco type used: Cigarettes Immunizations Up To Date Tetanus Booster (TDap): Unknown Date of Influenza Vaccine: Jun 15, 2022 Past Medical History PMH As described under Assessment. Family Medical History Family Medical History: She reports her mother has HTN, HLD and chronic bradycardia. She reports her father has DM. Allergies and Home Medications Allergies Coded Allergies: No Known Drug Allergies (Unverified , 11/10/22) Patient Home Medication List Amoxicillin/Potassium Clav (Amox Tr-K Clv 875-125 mg Tab) 875 Mg-125 Mg Tablet, 1 EACH PO BID Prescribed by: STEPHEN LAL on 11/18/22 1614 Escitalopram Oxalate (Escitalopram Oxalate) 20 Mg Tablet, 20 MG PO DAILY, (Reported) Entered as Reported by: Clara Jean on 11/10/22 1643 Last Action: Converted Metronidazole (Metronidazole) 500 Mg Tablet, 500 MG PO TID Prescribed by: STEPHEN LAL on 11/18/22 1614 Omeprazole (Omeprazole) 20 Mg Capsule.dr, 20 MG PO DAILY, (Reported) Entered as Reported by: GINO NOBLE on 11/15/22 1351 Last Action: Reviewed Physical Exam-Cardiology Physical Exam Vital Signs/I&O Capillary Refill : Constitutional: AAO x 3, well-developed, well-nourished HEENT: PERRL, hearing is well preserved, oral hygience is good Neck: No carotid bruit; carotid pulses are 2 + bilaterally Respiratory: No accessory muscle use, No respiratory distress; chest expansion is symmetric, chest is bilaterally symmetric, lungs clear to auscultation Cardiovascular: regular rate-rhythm; No JVD; bradycardia, S1 and S2 Gastrointestinal: No tender; soft; No guarding; audible bowel sounds Extremities: no lower extremity edema bilateral Neurologic/Psychiatric: grossly intact (moves all extremities) Skin: No rash on exposed areas, No ulcerations on exposed areas Lymphatic: no adenopathy Data Review Labs Radiology NAME: ROLY BUTLER [facility] REC#: [id number] PT STATUS: ADM Asael : 1990 PHYSICIAN: STEPHEN LAL DO ADMIT DATE: 11/15/22/[facility] Signed Date of Exam:11/17/22 HEPATOBILIARY WITHOUT EJECTION INDICATION: Status post cholecystectomy. Study is performed evaluate for bile leak. Patient was administered 5.4 mCi technetium 99 M Choletec intravenously and imaging over the abdomen was performed. There is homogeneous uptake of activity by the liver. Prompt excretion of activity into the common duct is noted with normal passage into the small bowel. No abnormal accumulation of activity is identified to suggest bile leak. IMPRESSION: No evidence of bile leak. Dictated by: Dictated on workstation # [id number] Dict: 11/17/22 1405 Trans: 11/17/[address] [facility] [id number] Interpreted by: AUSTEN LARSEN MD Electronically signed by: AUSTEN LARSEN MD 11/17/22 1626 ECG Impression ECG Initial ECG Rhythm: S.James A/P-Cardiology Assessment/Admission Diagnosis Sinus bradycardia (seen during hours of sleep) - asymptomatic S/P cholecystectomy - developed fever/chills - management per surgical services H/O near syncope approx a year ago - by description it appears to be d/t orthostatic hypotension - 72 HR color television console monitor by [facility] did not show any signif concerns per pt report H/O LP shunts - x 10 in the past per pt report H/O mini-gastric bypass in 2018 - reports approx 200 lb weight loss since Discussion and Recomendations Sinus bradycardia - asymptomatic - echocardiogram to eval structure and function Likely ok to d/c home from cardiac stand point today with out f/u DIANA TERRY Nov 18, 2022 09:59
[2022-11-18] MEDS ORDERED: METR-145 PO (16:14)
[2022-11-18] MEDS ORDERED: AMOX1TAB12 PO (16:14)
--- NOTE | 2022-11-18 16:15 | Discharge Inst-Simple/Standard ---
Discharge Inst-Standard Discharge Medications New, Converted or Re-Newed RX: Transmitted to Pharmacy Patient Instructions/Follow Up Plan of Care/Instructions/FU: Keep previous appointment Activity as Tolerated: No Discharge Diet: Regular Diet Other Inst to Patient Follow up Appt: Keep previous appointment. Instructions: No lifting greater than 10 pounds. No strenuous activity. May shower in 24 hours, no tub bath or soaking. Use incentive spirometer at home as directed. No Smoking Skin/Wound Care: You have special glue over your incision that will fall off on it's own. Symptoms to Report: Appetite Changes, Extremity Discoloration, Numbness/Tingling, Swelling In creased, Bleeding Excessive, Eyesight Changes, Pain Increased, Urine Color Change, Constipation(Persistent), Fever over 101 degree F, Pain/Pressure in chest, Urinating Difficulty, Cough Up/Vomit Blood, Heart Beat Irreg/Pounding, Pain/Pressure in jaw, Vaginal Bleeding Increase, Cramps in feet or legs, Lightheadedness, Pain/Pressure in shoulder, Diarrhea(Persistent), Memory Changes Suddenly, Questions/Concerns, Weight gain consecutive days, Dizziness/Fainting, Nausea/Vomiting, Shortness of Breath, Weight gain over 2 pounds If questions or concerns contact your physician Or seek help at emergency department. STEPHEN LAL DO Nov 18, 2022 16:15
--- NOTE | 2022-11-18 18:50 | Consultation-Cardiology ---
HPI-Cardiology Cardiology Consultation: Date of Consultation 11/18/22 Time Seen by a Provider: 09:15 Date of Admission Attending Physician Patrick Lake MD Admitting Physician Admitting Physician: Karan So MD Attending Physician: Karan So MD Consulting Physician WES PARDO MD, MA, FACP, FACC, [facility], [facility] Physician requesting consult: Dr Alonso HPI: Chief Complaint: Bradycardia Ms. Morgan is a 32 yr old female who we have been asked to see in 509 d/t bradycardia. She reports she had a cholecystectomy approx 1 week ago. She reports on Tuesday night at home she developed fever and chills. She reports she went to the [facility] ED and they transferred her to [facility]. She denies any c/o CP, palpitations, syncope or near syncope at this time. No c/o shortness of breath. No c/o n/v/d. She states she feels well and wants to go home. She reports approx a year ago she was at home and got up quickly from the couch and nearly passed out. She reports she was taken to the [facility] and they did not determine anything. She reports she wore a 72 HR heart monitor and nothing was found. Review of Systems-Cardiology Review of Systems Constitutional: As described under HPI Eyes: No vision change Ears/Nose/Throat: No epistaxis, No recent hearing loss Respiratory: As described under HPI Cardiovascular: As described under HPI Gastrointestinal: As described under HPI Genitourinary: No dysuria, No hematuria Skin: No rash on exposed areas, No ulcerations on exposed areas Psychiatric/Neurological: anxiety; No seizure, No focal weakness, No syncope Hematologic: No bleeding abnormalities ZEF-Esoqhh-Jqalhh Hx Patient Social History Smoking Status: Current Everyday Smoker 2nd Hand Smoke Exposure: No Have you traveled recently?: No Alcohol Use?: No Pt feels they are or have been: No Tobacco type used: Cigarettes Immunizations Up To Date Tetanus Booster (TDap): Unknown Date of Influenza Vaccine: Jun 15, 2022 Past Medical History PMH As described under Assessment. Family Medical History Family Medical History: She reports her mother has HTN, HLD and chronic bradycardia. She reports her father has DM. Allergies and Home Medications Allergies Coded Allergies: No Known Drug Allergies (Unverified , 11/10/22) Patient Home Medication List Home Medication List Reviewed: Yes Amoxicillin/Potassium Clav (Amox Tr-K Clv 875-125 mg Tab) 875 Mg-125 Mg Tablet, 1 EACH PO BID Prescribed by: STEPHEN LAL on 11/18/22 1614 Escitalopram Oxalate (Escitalopram Oxalate) 20 Mg Tablet, 20 MG PO DAILY, (Reported) Entered as Reported by: Clara Jean on 11/10/22 1643 Last Action: Converted Metronidazole (Metronidazole) 500 Mg Tablet, 500 MG PO TID Prescribed by: STEPHEN LAL on 11/18/22 1614 Omeprazole (Omeprazole) 20 Mg Capsule.dr, 20 MG PO DAILY, (Reported) Entered as Reported by: GINO NOBLE on 11/15/22 1351 Last Action: Reviewed Discontinued Medications Docusate Sodium (Colace) 100 Mg Capsule, 100 MG PO BID Discontinued Reason: No Longer Taking Prescribed by: STEPHEN LAL on 11/11/22 1315 Last Action: Discontinued Hydrocodone/Acetaminophen (Hydrocodone-Acetamin 5-325 mg) 5 Mg-325 Mg Tablet, 1 TAB PO Q4H PRN for PAIN-MODERATE (5-7) Discontinued Reason: No Longer Taking Prescribed by: STEPHEN LAL on 11/11/22 1316 Last Action: Discontinued Omeprazole Magnesium (Prilosec Otc) 20 Mg Tablet.dr, 20 MG PO DAILY, (Reported) Discontinued Reason: No Longer Taking Entered as Reported by: ANUPAM LIPSCOMB on 09/18/18 1319 Last Action: Discontinued Physical Exam-Cardiology Physical Exam Vital Signs/I&O 11/18/22 11/18/22 11/18/22 11/18/22 07:00 07:57 08:10 12:00 Temp 36.9 36.9 Pulse 50 45 41 Resp 19 21 B/P (MAP) 108/59 (75) 109/59 (76) Pulse Ox 99 97 O2 Delivery Room Air Room Air Room Air 11/18/22 11/18/22 11/18/22 11/18/22 12:33 16:30 16:38 16:56 Temp 36.8 36.8 Pulse 49 51 51 Resp 18 18 B/P (MAP) 109/63 (78) 109/63 (78) 109/63 Pulse Ox 98 98 O2 Delivery Room Air Room Air Room Air 11/18/22 00:00 Intake Total 350 ml Balance 350 ml Capillary Refill : Constitutional: AAO x 3, well-developed, well-nourished HEENT: PERRL, hearing is well preserved, oral hygience is good Neck: No carotid bruit; carotid pulses are 2 + bilaterally Respiratory: No accessory muscle use, No respiratory distress; chest expansion is symmetric, chest is bilaterally symmetric, lungs clear to auscultation Cardiovascular: regular rate-rhythm; No JVD; bradycardia, S1 and S2 Gastrointestinal: No tender; soft; No guarding; audible bowel sounds Extremities: no lower extremity edema bilateral Neurologic/Psychiatric: grossly intact (moves all extremities) Skin: No rash on exposed areas, No ulcerations on exposed areas Lymphatic: no adenopathy Data Review Labs Laboratory Tests 11/18/22 04:41: White Blood Count 12.7H, Red Blood Count 3.75L, Hemoglobin 11.6, Hematocrit 34L, Mean Corpuscular Volume 90, Mean Corpuscular Hemoglobin 31, Mean Corpuscular Hemoglobin Concent 34, Red Cell Distribution Width 11.8, Platelet Count 276, Mean Platelet Volume 11.1, Sodium Level 140, Potassium Level 3.5L, Chloride Level 109H, Carbon Dioxide Level 23, Anion Gap 8, Blood Urea Nitrogen 5L, Creatinine 0.68, Estimat Glomerular Filtration Rate 119, BUN/Creatinine Ratio 7, Glucose Level 87, Calcium Level 8.7, Corrected Calcium 9.2, Total Bilirubin 0.6, Aspartate Amino Transf (AST/SGOT) 21, Alanine Aminotransferase (ALT/SGPT) 123H, Alkaline Phosphatase 131, Total Protein 6.1L, Albumin 3.4 A/P-Cardiology Assessment/Admission Diagnosis Sinus bradycardia (seen during hours of sleep) - asymptomatic - Echo on 11-18-22: LVEF 60-65%, PASP 25-30 mmHg S/P cholecystectomy - developed fever/chills - management per surgical services H/O near syncope approx a year ago - by description it appears to be d/t orthostatic hypotension - [address] [facility] did not show any signif concerns per pt report H/O LP shunts - x 10 in the past per pt report H/O mini-gastric bypass in 2018 - reports approx 200 lb weight loss since Discussion and Recomendations I discussed her case with Dr Celeste Jeff to d/c home from cardiac stand point today with out f/u F/u at our office in 1-2 weeks I answered patient's questions WES PARDO MD FACP FAC CCDS Nov 18, 2022 18:50
== END 2022-11-18 16:40 | disposition home or self-care (01) ==
LOC: CSD 00:57 → INTOOBSV 00:57
PROVIDERS: ADMIT Surgery; ATTEND Surgery
DX: G89.18 Other acute postprocedural pain (principal); R10.11 Right upper quadrant pain; R11.0 Nausea; R50.9 Fever, unspecified; R00.1 Bradycardia, unspecified; M54.6 Pain in thoracic spine; F17.210 Nicotine dependence, cigarettes, uncomplicated; Z98.84 Bariatric surgery status; Z90.49 Acquired absence of other specified parts of digestive tract; Z98.2 Presence of cerebrospinal fluid drainage device
CPT/HCPCS: 74250; 78226; 80048 ×2; 80053 ×2; 84443; 85025; 85027 ×3; 93005; 94664; 96366 ×3; 96374; 96375 ×2; 96376 ×4; A9537; C8929; G0378; G0379; 36415; 93306

== ENCOUNTER 2022-11-25 13:42 | Inpatient (IN) | payer BC ==
[~2022-11-25] VITALS: Ht 172.7 cm; Wt 72.7 kg
[~2022-11-25 13:42] MED LIST changes: +AMOX1TAB12 PO; +METR-145 PO; +OMEP20CA18 PO
[2022-11-25] MEDS ORDERED: VANCOMYCIN INJECTION 0.1 MG in NS (IVPB) 250 ML IV SCH (15:30)
[2022-11-25] MEDS ORDERED: ONDANSETRON 4 MG/2 ML (SDV) Z0FRAN IVP PRN (15:30)
[2022-11-25] MEDS ORDERED: PIPERACILLIN SODIUM/TAZOBACTAM 4.5 GM in NS (IVPB) 100 ML IV NR (15:45)
[2022-11-25 15:49] VITALS: BP 104/51
[2022-11-25 16:14] LABS: INR 1.4 (0.8-1.4); POTASSIUM 3.7 MMOL/L (3.6-5.0); PROTHROMBIN TIME PATIENT 17.6 SEC (12.2-14.7)
[2022-11-25 16:15] LABS: CALCIUM 7.9 MG/DL (8.5-10.1)
[2022-11-25 16:20] LABS: CREATININE SERUM 0.62 MG/DL (0.60-1.30)
[2022-11-25] MEDS: LACTATED RINGERS 1,000 ML IV SCH (16:22)
[2022-11-25] MEDS ORDERED: VANCOMYCIN 1500MG/300ML PREMIX IV NR (16:30)
[2022-11-25] MEDS: morphine INJ 4 MG/ML 1 ML (VIAL/SYRINGE) IVP PRN ×4 (16:48→23:51)
[2022-11-25] MEDS ORDERED: VANCOMYCIN 500 MG/NS 100 ML IV NR ×2 (17:30)
[2022-11-25 19:30] VITALS: BP 107/53
--- NOTE | 2022-11-25 21:03 | History & Physical-Surgical ---
History of Present Illness History of Present Illness Patient Consulted On(ani/time) 11/25/22 20:55 Date Seen by Provider: Nov 25, 2022 Time Seen by Provider: 17:00 History of Present Illness CC: intrabdominal abscess. Patient is a 32 year old female who had recent laparoscopic cholecystectomy and partial omentectomy which was causing partial small bowel obstruction. She postoperatively developed leukocytosis and abdominal pain and concern for possible early abscess in gallbladder fossa. At surgery a piece of Surgicel was placed and appeared to be the cause of findings likely on repeat ct at outside hospital. She also was noted to have some slight dilated small bowel consistent with psbo or ileus. She had a small bowel follow through which did not demonstrate an obstruction. She also had a hida scan that did not demonstrate a leak. Patient was given antibiotics and was feeling well at discharge. Patient was doing well. She was seen in my office yesterday and she reports she was doing well at that time. Later yesterday started feeling ran down and fatigued. Developed fever more ruq abdominal pain and went to [facility] for further evaluation today. She states feels weak. Not wanting to move. She is hungry and wanting food. Nothing makes pain better. She states she had a 20 k wbc and a fever of 102. [address] scan that is consistent with intraabdominal abscess in the gallbladder fossa. Allergies and Home Medications Allergies Coded Allergies: No Known Drug Allergies (Unverified , 11/10/22) Patient Home Medication List Home Medication List Reviewed: Yes Amoxicillin/Potassium Clav (Amox Tr-K Clv 875-125 mg Tab) 875 Mg-125 Mg Tablet, 1 EACH PO BID Prescribed by: STEPHEN LAL on 11/18/22 1614 Escitalopram Oxalate (Escitalopram Oxalate) 20 Mg Tablet, 20 MG PO DAILY, (Reported) Entered as Reported by: Clara Jean on 11/10/22 1643 Metronidazole (Metronidazole) 500 Mg Tablet, 500 MG PO TID Prescribed by: STEPHEN LAL on 11/18/22 1614 Omeprazole (Omeprazole) 20 Mg Capsule.dr, 20 MG PO DAILY, (Reported) Entered as Reported by: GINO NOBLE on 11/15/22 1351 Past Vjzuiqh-Esityk-Ddnkom Hx Patient Social History Smoking Status: Former Smoker Former Smoker, Quit: May 20, 2021 Type Used: Cigarettes 2nd Hand Smoke Exposure: No Recent Hopitalizations: No Alcohol Use?: No Have you traveled recently?: No Immunizations Up To Date Tetanus Booster (TDap): Unknown Date of Influenza Vaccine: Jun 15, 2022 Seasonal Allergies Seasonal Allergies: No Surgeries History of Surgeries: Yes (MINI GASTRIC BYPASS in [place], LP SHOCK PLACEMENT X10, partial omentectomy) Surgeries: Section, Gallbladder Respiratory History of Respiratory Disorde: No Cardiovascular History of Cardiac Disorders: No Neurological History of Neurological Disord: No Reproductive System Hx Reproductive Disorders: No Sexually Transmitted Disease: No HIV/AIDS: No Female Reproductive Disorders: Menstrual Problems Genitourinary History of Genitourinary Disor: No Gastrointestinal History of Gastrointestinal Di: Yes Gastrointestinal Disorders: Gastroesophageal Reflux Musculoskeletal History of Musculoskeletal Dis: No Endocrine History of Endocrine Disorders: No HEENT History of HEENT Disorders: No Cancer History of Cancer: No Psychosocial History of Psychiatric Problem: Yes Behavioral Health Disorders: Anxiety Integumentary History of Skin or Integumenta: No Blood Transfusions History of Blood Disorders: No Adverse Reaction to a Blood Tr: No Reviewed Nursing Assessment Reviewed/Agree w Nursing PMH: Yes Family Medical History Significant Family History: No Pertinent Family Hx Review of Systems-General Constitutional: fever, weakness Respiratory: No cough, No dyspnea on exertion Cardiovascular: No chest pain, No palpitations Gastrointestinal: abdominal pain (RUQ); No nausea, No vomiting Genitourinary: No decreased output, No discharge Musculoskeletal: back pain; No joint pain Skin: No change in color, No change in hair/nails Psychiatric/Neurological: Denies Anxiety, Denies Depressed, Denies Emotional Problems All Other Systems Reviewed Negative Unless Noted: Yes (Negative excepted noted.) Physical Exam-General Problems Physical Exam Vital Signs Vital Signs - First Documented 11/25/22 11/25/22 15:35 15:49 Temp 37.0 Pulse 60 Resp 16 B/P (MAP) 104/51 (68) Pulse Ox 96 O2 Delivery Room Air Capillary Refill : General Appearance: WD/WN, no apparent distress, other (anxious) HEENT: PERRL/EOMI, normal ENT inspection Neck: non-tender, supple Respiratory: chest non-tender Cardiovascular: regular rate, rhythm, no JVD Gastrointestinal: soft, tenderness (ruq), other (incision at umbilicus skin opening does not look infected, healing ridge present) Rectal: deferred Back: normal inspection, no CVA tenderness Extremities: non-tender, normal inspection Neurologic/Psychiatric: alert, normal mood/affect, oriented x 3 Skin: normal color, warm/dry Lymphatic: no adenopathy Data Review Labs Laboratory Tests 11/25/22 15:56: Prothrombin Time 17.6H, INR Comment 1.4, Sodium Level 138, Potassium Level 3.7, Chloride Level 107, Carbon Dioxide Level 20L, Anion Gap 11, Blood Urea Nitrogen 5L, Creatinine 0.62, Estimat Glomerular Filtration Rate 121, BUN/Creatinine Ratio 8, Glucose Level 100, Calcium Level 7.9L Assessment/Plan Assessment/Plan Admission Diagonsis s/p lap heydi c ioc intrabdominal abscess ruq abdominal pain leukocytosis Fever history of mini gastric biopsy Admission Status: Inpatient Order (span 2 midnights) Reason for Inpatient Admission: Patient will be admitted minimum 2 midnights for IV antibioitics, procedures and close monitoring. Assessment/Plan s/p lap heydi c ioc intrabdominal abscess ruq abdominal pain leukocytosis Fever history of mini gastric biopsy Patient admitted. Iv fluid NPO after midnight Pain control Continue antibiotics. Blood cultures obtained at [place]. The umbilical incision does not lood infected, skin slightly opened appears to be from seroma. Discussed with Dr. Orantes who will put drain in first thing in the morning. Had long discussion with patient and her family. We discussed management plan. They are agreeing with plan at this time. All questions answered. NPO after midnight. Supervisory-Addendum Brief Verification & Attestation Participated in pt care: history, MDM, physical Personally performed: exam, history, MDM Care discussed with: other Procedures: n/a Results interpretation: Verified all documentation Seen by me. STEPHEN LAL DO Nov 25, 2022 21:03
[2022-11-25] MEDS: PIPERACILLIN SODIUM/TAZOBACTAM 4.5 GM in NS (IVPB) 100 ML IV SCH (21:48)
[2022-11-25] MEDS ORDERED: ACETAMINOPHEN 325 MG TABLET ONE (22:52)
[2022-11-25] MEDS: ACETAMINOPHEN 325 MG TABLET PO PRN (22:54)
[2022-11-25 23:15] VITALS: BP 105/58
[2022-11-26] VITALS (12 sets, daily range): BP systolic 92–131; BP diastolic 48–94
[2022-11-26] MEDS: LACTATED RINGERS 1,000 ML IV SCH ×4 (01:39→21:36)
[2022-11-26] MEDS: morphine INJ 4 MG/ML 1 ML (VIAL/SYRINGE) IVP PRN ×9 (01:47→22:37)
[2022-11-26] MEDS: ACETAMINOPHEN 325 MG TABLET PO PRN ×2 (04:24→12:02)
[2022-11-26 05:48] LABS: HEMATOCRIT 31 % (35-52); HEMOGLOBIN 10.5 g/dL (11.5-16.0); MEAN CORPUSCULAR HEMOGLOBIN 30 pg (25-34); MEAN CORPUSCULAR HGB CONC 34 g/dL (32-36); MEAN CORPUSCULAR VOLUME 91 fL (80-99); MEAN PLATELET VOLUME 10.1 fL (9.0-12.2); PLATELET COUNT 333 10^3/uL (130-400); WHITE BLOOD COUNT 11.3 10^3/uL (4.3-11.0)
[2022-11-26] MEDS: VANCOMYCIN 1 GM/NS 250 ML IVPB IV SCH ×4 (05:51→17:04)
[2022-11-26 06:00] LABS: ALBUMIN 2.9 GM/DL (3.2-4.5); BILIRUBIN,TOTAL 0.6 MG/DL (0.1-1.0); CALCIUM 8.4 MG/DL (8.5-10.1); CREATININE SERUM 0.63 MG/DL (0.60-1.30); POTASSIUM 3.7 MMOL/L (3.6-5.0); TOTAL PROTEIN 5.7 GM/DL (6.4-8.2)
--- NOTE | 2022-11-26 07:29 | Progress Note - Surgery ---
RAMON BOSTON 11/26/22 0729: Subjective Date Seen by a Provider: Nov 26, 2022 Time Seen by a Provider: 07:15 Subjective/Events-last exam Patient claims she is not feeling well today, but is ready to get her procedure done. Pain is rated 9/10 and is constant, mainly in the RUQ. She has been having BMs and voiding normally since her admission. Her main concern today is if she will be able to eat after the drain is placed. Review of Systems General: No Chills, No Night Sweats HEENT: Head Aches; No Visual Changes, No Dysphasia, No Sore Throat Pulmonary: No Dyspnea, No Cough Cardiovascular: No: Chest Pain, Palpitations, Lt Headedness Gastrointestinal: Nausea, Abdominal Pain; No: Vomiting, Melena, Hematochezia Genitourinary: No Dysuria, No Frequency Musculoskeletal: back pain; No: neck pain Neurological: No: Weakness, Numbness, Confusion Objective Exam Vital Signs Date Time Temp Pulse Resp B/P (MAP) Pulse Ox O2 Delivery O2 Flow Rate FiO2 11/26/22 04:42 37.8 81 18 108/52 (70) 93 Room Air 11/25/22 23:15 37.8 64 18 105/58 (74) 95 Room Air 11/25/22 22:52 39.6 11/25/22 19:30 36.9 63 18 107/53 (71) 97 Room Air 11/25/22 15:49 37.0 60 16 104/51 (68) 96 Room Air 11/25/22 15:35 Room Air I & O 11/26/22 07:00 Intake Total 2150 ml Balance 2150 ml Capillary Refill : General Appearance: Anxious, Mild Distress HEENT: PERRL/EOMI, Moist Mucous Membranes Neck: Non Tender, Supple Respiratory: Lungs Clear, Normal Breath Sounds, No Accessory Muscle Use, No Respiratory Distress Cardiovascular: Regular Rate, Rhythm, No Murmur Gastrointestinal: soft, tenderness (ruq), other (incision at umbilicus skin opening does not look infected, healing ridge present) Extremity: Non Tender, No Calf Tenderness Neurologic/Psychiatric: Alert, Oriented x3 Skin: Normal Color, Warm/Dry Lymphatic: No Adenopathy Results Lab Laboratory Tests 11/25/22 15:56: Prothrombin Time 17.6H, INR Comment 1.4, Sodium Level 138, Potassium Level 3.7, Chloride Level 107, Carbon Dioxide Level 20L, Anion Gap 11, Blood Urea Nitrogen 5L, Creatinine 0.62, Estimat Glomerular Filtration Rate 121, BUN/Creatinine Ratio 8, Glucose Level 100, Calcium Level 7.9L 11/26/22 05:27: Sodium Level 138, Potassium Level 3.7, Chloride Level 106, Carbon Dioxide Level 21, Anion Gap 11, Blood Urea Nitrogen 3L, Creatinine 0.63, Estimat Glomerular Filtration Rate 121, BUN/Creatinine Ratio 5, Glucose Level 93, Calcium Level 8.4L, White Blood Count 11.3H, Red Blood Count 3.46L, Hemoglobin 10.5L, Hematocrit 31L, Mean Corpuscular Volume 91, Mean Corpuscular Hemoglobin 30, Mean Corpuscular Hemoglobin Concent 34, Red Cell Distribution Width 11.9, Platelet Count 333, Mean Platelet Volume 10.1, Corrected Calcium 9.3, Total Bilirubin 0.6, Aspartate Amino Transf (AST/SGOT) 383H, Alanine Aminotransferase (ALT/SGPT) 172H, Alkaline Phosphatase 192H, Total Protein 5.7L, Albumin 2.9L Assessment/Plan Assessment/Plan Assessment/Plan s/p lap heydi c ioc intrabdominal abscess ruq abdominal pain leukocytosis Fever history of mini gastric biopsy Patient admitted. Iv fluid @125 Pt has been NPO after midnight Pain control with morphine Continue antibiotics, currently on zosyn and vanco Blood cultures obtained at [employer]. The umbilical incision does not look infected, skin slightly opened appears to be from seroma. Discussed with Dr. Orantes who will put drain in first thing today. Had long discussion with patient and her family. We discussed management plan. They are agreeing with plan at this time. All questions answered. STEPHEN AYALA DO 11/26/22 1014: Subjective Subjective/Events-last exam Fever overnight. Pain constant. 9/10 pain in ruq. Having bowel function WBC down. Denies n/v fever sweats chills shortness of breath or chest pain at this time. Objective Exam General Appearance: No Apparent Distress, Anxious HEENT: PERRL/EOMI, Moist Mucous Membranes Neck: Non Tender, Supple Respiratory: Chest Non Tender, No Accessory Muscle Use, No Respiratory Distress Cardiovascular: Regular Rate, Rhythm, No JVD Gastrointestinal: soft, tenderness (ruq), other (incision at umbilicus skin opening does not look infected, healing ridge present) Extremity: Non Tender, No Calf Tenderness Neurologic/Psychiatric: Alert, Oriented x3 Skin: Normal Color, Warm/Dry Lymphatic: No Adenopathy Assessment/Plan Assessment/Plan Assessment/Plan s/p lap heydi c ioc intrabdominal abscess ruq abdominal pain leukocytosis Fever history of mini gastric biopsy Patient admitted. Iv fluids Pt has been NPO after midnight Pain control with morphine Continue antibiotics, currently on zosyn and vanco Blood cultures obtained at [employer]. The umbilical incision does not look infected, skin slightly opened appears to be from seroma. Discussed with Dr. Orantes who will put drain in today. Had long discussion with patient and her family. We discussed management plan. They are agreeing with plan at this time. All questions answered. Supervisory-Addendum Brief Verification & Attestation Participated in pt care: history, MDM, physical Personally performed: exam, history, MDM, supervision of care Care discussed with: Medical Student Procedures: n/a Results interpretation: Verified all documentation Verification and Attestation of Medical Student E/M Service A medical student performed and documented this service in my presence. I reviewed and verified all information documented by the medical student and made modifications to such information, when appropriate. I personally performed the physical exam and medical decision making. Stephen Ayala, Nov 26, 2022,08:24 RAMON BOSTON Nov 26, 2022 07:29 STEPHEN AYALA DO Nov 26, 2022 10:14
[2022-11-26] MEDS: PIPERACILLIN SODIUM/TAZOBACTAM 4.5 GM in NS (IVPB) 100 ML IV SCH ×3 (07:46→22:36)
[2022-11-26] MEDS ORDERED: MIDAZOLAM 2 MG/2 ML (VERSED) VIAL IVP ONE (08:00)
[2022-11-26] MEDS ORDERED: LIDOCAINE 1% INJ 10 ML VIAL INJ ONE (08:00)
[2022-11-26] MEDS ORDERED: fentaNYL INJ 100 MCG/2 ML AMP IVP ONE (08:00)
[2022-11-26] MEDS ORDERED: FLUCONAZOLE 200 MG/100 ML 100 ML IV ONE (09:00)
--- NOTE | 2022-11-26 11:14 | Diagnostic Imaging Report ---
INDICATION: Gallbladder fossa fluid collection. PROCEDURE: The patient presents for CT-guided percutaneous drainage. TECHNIQUE: All CT scans use one or more of the following dose optimizing techniques: automated exposure control, MA and/or KvP adjustment based on patient size and exam type or iterative reconstruction. The patient was brought to the CT suite, placed on the table in the supine position. Axial imaging through the abdomen was performed to evaluate appropriate entry site. The procedure was performed utilizing conscious sedation with radiology nursing and constant patient monitoring. The patient was given a total of 50 mcg of fentanyl intravenously and 1 mg of Versed intravenously. Total procedure time approximately 6 minutes. Right upper quadrant was prepped and draped in the usual sterile fashion. A small amount of 1% lidocaine was utilized for local anesthesia. The gallbladder fossa fluid collection was punctured utilizing a Epping needle. This was exchanged over an 035 Amplatz guidewire. 6, 8 and 10-Upper Sorbian dilators were utilized over the guidewire to dilate the tract. Next, a 10.2-Upper Sorbian pigtail all-purpose drain was advanced over the guidewire into the gallbladder fossa fluid collection. The loop was formed. Purulent material was aspirated. The percutaneous drain was affixed to the patient's skin and placed to a Wyatt drain. The patient tolerated the procedure well and was sent to her room in satisfactory condition. IMPRESSION: Successful CT-guided percutaneous drain placement into the gallbladder fossa fluid collection, utilizing conscious sedation. The patient tolerated the procedure well. Dictated by: Dictated on workstation # [id number]
--- NOTE | 2022-11-26 14:27 | Pre-Op Note & Conscious Sedat ---
Pre-Operative Progress Note Date of Available H&P: Nov 26, 2022 Date H&P Reviewed: Nov 26, 2022 Time H&P Reviewed: 08:00 Pre-Op Diagnosis: abdominal abscess Moderate Sedation PreProcedure Time 08:00 ASA Score 2 Airway Lungs Heart ASA score ASA 1: a normal healthy patient ASA 2: a patient with a mild systemic disease (mid diabetes, controlled hypertension, obesity ASA 3: a patient with a severe systemic disease that limits activity (angina, COPD, prior Myocardial infarction) ASA 4: a patient with an incapacitating disease that is a constant threat to life (CHF, renal failure) ASA 5: a moribund patient not expected to survive 24 hrs. (ruptured aneurysm) ASA 6: a declared brain- patient whose organs are being harvested. For emergent operations, add the letter E after the classification Mallampati Classification Grade 2 Sedation Plan Analgesia, Amnesia, Plan communicated to team members, Discussed options with patient/fam, Discussed risks with patient/fam The patient is an appropriate candidate to undergo the planned procedure, sedation, and anesthesia. The patient immediately re-assessed prior to indication. AUSTEN LARSEN MD Nov 26, 2022 14:27
--- NOTE | 2022-11-26 15:47 | Consultation - Hospitalist ---
HPI History of Present Illness: HPI/Chief Complaint Dia Morgan is a 32 year old female who was admitted for intraabdominal abscess. She recently underwent a laparoscopic cholecystectomy on 11/11. She was readmitted on 11/15 with fever and concern for abscess. Surgery admitted and evaluated but the area concerning for abscess was thought to be Surgicel from her previous procedure. She had a HIDA scan which did not reveal bile leak. She has now returned with recurrent fevers and rigors. She was also feeling weak and having right upper quadrant abdominal pain. She says her abdominal incision opened and that is the reason she ultimately returned to the ER. Upon my exam, a drain has been placed to drain the abscess. She is still having some right upper quadrant pain. She is still having rigors. She has no other complaints or concerns at this time. She takes Lexapro and Omeprazole as an outpatient. Source: patient Exam Limitations: no limitations Date Seen 11/26/22 Attending Physician Patrick Lake MD PCP Admitting Physician: Noam Ayala DO Attending Physician: Noam Ayala DO Referring Physician Date of Admission Nov 25, 2022 at 15:05 Home Medications & Allergies Home Medications Reviewed patient Home Medication Reconciliation performed by pharmacy medication reconciliations overhead crane technician and/or nursing. Patients Allergies have been reviewed. Allergies Allergies Coded Allergies No Known Drug Allergies (Unverified11/10/22) Past Kiyjfgb-Nlbbll-Nlagig Hx Patient Social History Tobacco Use?: No Smoking Status: Former Smoker Use of E-Cig and/or Vaping dev: No Substance use?: No Alcohol Use?: No Pt feels they are or have been: No Immunizations Up To Date Date of Influenza Vaccine: Jun 15, 2022 First/Initial COVID19 Vaccinat: 02/2021 Second COVID19 Vaccination Bill: 03/19/2021 Tetanus Booster (TDap): Less Than 5 Years Hepatitis A: No Hepatitis B: No Seasonal Allergies Seasonal Allergies: No Current Status status: No status: No Advance Directives: No Communicates: Verbally Primary Language: Angolan Preferred Spoken Language: Angolan Is interpretation needed?: No Implanted or Applied Medical D: None Past Medical History Surgeries: Section, Gallbladder Sexually Transmitted Disease: No HIV/AIDS: No Gastroesophageal Reflux Anxiety Blood Disorders: No Adverse Reaction/Blood Tranf: No Family Medical History No Pertinent Family Hx Review of Systems Constitutional: chills, fever Gastrointestinal: RUQ Physical Exam Physical Exam Vital Signs Vital Signs - First Documented 11/25/22 11/25/22 11/26/22 15:35 15:49 08:50 Temp 37.0 Pulse 60 Resp 16 B/P (MAP) 104/51 (68) Pulse Ox 96 O2 Delivery Room Air O2 Flow Rate 2.00 Capillary Refill : Height, Weight, BMI Height: 5'8.00" Weight: 207lbs. 0.0oz. 93.369655is; 24.37 BMI Method:Stated General Appearance: No Apparent Distress, WD/WN HEENT: PERRL/EOMI, Pharynx Normal Neck: Normal Inspection, Supple Respiratory: Lungs Clear, Normal Breath Sounds, No Respiratory Distress Cardiovascular: Regular Rate, Rhythm, No Murmur Gastrointestinal: Normal Bowel Sounds, Soft, Tenderness, Other (drain in place) Extremity: Normal Inspection, Non Tender, No Pedal Edema Neurologic/Psychiatric: Alert, Oriented x3, No Motor/Sensory Deficits Skin: Normal Color, Warm/Dry Results Results/Procedures Labs Laboratory Tests 11/25/22 15:56 11/26/22 05:27 Patient resulted labs reviewed. Imaging: Reviewed Imaging Films, Reviewed Imaging Report Assessment/Plan Assessment and Plan Assess & Plan/Chief Complaint Sepsis Intraabdominal abscess Elevated LFTs Recent laparoscopic cholecystectomy Sinus bradycardia Anxiety GERD Surgery primary s/p drain placement per IR Septic on arrival to outside ER, now resolved IV fluids Continue antibiotics Await culture results Pain regimen Clear liquid diet Continue home meds Thank you for the consult .We will continue to follow as needed. Please contact the hospitalist conduit bender with any questions or concerns. Diagnosis/Problems Diagnosis/Problems (1) Sepsis Status: Acute Qualifiers: Sepsis type: sepsis due to unspecified organism Sepsis acute organ dysfunction status: without acute organ dysfunction Qualified Codes: A41.9 - Sepsis, unspecified organism (2) Abdominal abscess Status: Acute (3) Elevated LFTs Status: Acute (4) History of laparoscopic cholecystectomy Status: Chronic (5) Sinus bradycardia Status: Chronic KE CHAUDHARY MD Nov 26, 2022 15:47
[2022-11-27 00:37] VITALS: BP 101/53
[2022-11-27] MEDS: morphine INJ 4 MG/ML 1 ML (VIAL/SYRINGE) IVP PRN ×7 (00:45→14:32)
[2022-11-27 03:15] VITALS: BP 103/51
[2022-11-27] MEDS ORDERED: TROUGH ORDER-PHARMACY XX NR (04:30)
[2022-11-27 04:43] LABS: HEMATOCRIT 29 % (35-52); HEMOGLOBIN 9.7 g/dL (11.5-16.0); MEAN CORPUSCULAR HEMOGLOBIN 30 pg (25-34); MEAN CORPUSCULAR HGB CONC 33 g/dL (32-36); MEAN CORPUSCULAR VOLUME 91 fL (80-99); MEAN PLATELET VOLUME 10.1 fL (9.0-12.2); PLATELET COUNT 289 10^3/uL (130-400); WHITE BLOOD COUNT 7.5 10^3/uL (4.3-11.0)
[2022-11-27 04:58] LABS: ALANINE AMINOTRANSFERASE 115 U/L (0-55); ALBUMIN 2.7 GM/DL (3.2-4.5); ALKALINE PHOSPHATASE 147 U/L (40-136); BILIRUBIN,TOTAL 0.3 MG/DL (0.1-1.0); BUN/CREATININE RATIO 3; CALCIUM 8.5 MG/DL (8.5-10.1); CARBON DIOXIDE 23 MMOL/L (21-32); CHLORIDE 106 MMOL/L (98-107); CREATININE SERUM 0.61 MG/DL (0.60-1.30); GFR ESTIMATED 122; GLUCOSE 91 MG/DL (70-105); POTASSIUM 3.2 MMOL/L (3.6-5.0); SODIUM 140 MMOL/L (135-145); TOTAL PROTEIN 5.3 GM/DL (6.4-8.2)
[2022-11-27 05:04] LABS: VANCOMYCIN,TROUGH 5.6 UG/ML (10.0-20.0)
[2022-11-27] MEDS: PIPERACILLIN SODIUM/TAZOBACTAM 4.5 GM in NS (IVPB) 100 ML IV SCH (06:08)
[2022-11-27] MEDS: VANCOMYCIN 1 GM/NS 250 ML IVPB IV SCH ×2 (06:08)
[2022-11-27] MEDS: LACTATED RINGERS 1,000 ML IV SCH (06:13)
[2022-11-27 07:31] VITALS: BP 93/57
[2022-11-27] MEDS ORDERED: PANTOPRAZOLE 20 MG TABLET (PROTONIX) PO SCH (09:00)
[2022-11-27] MEDS ORDERED: OMEPRAZOLE 20 MG (PriLOSEC) CAP NON-FORMULARY PO SCH (09:00)
[2022-11-27] MEDS ORDERED: FLUCONAZOLE 100 MG/50 ML 50 ML IV SCH (09:00)
[2022-11-27] MEDS ORDERED: NON-FORMULARY MEDICATION 1 EA EA (Escitalopram Oxalate 20 MG) PO SCH (09:00)
--- NOTE | 2022-11-27 09:52 | Diagnostic Imaging Report ---
CLINICAL INDICATIONS: Patient with sepsis/abdominal abscess. Gallbladder removed on 11/11/2022. Drain put on an abscess on 11/26/2022. Evaluate for biliary leak. Comparison: Nuclear medicine HIDA study dated 11/17/2022. Procedure: The patient was administered 5.5 millicuries of technetium 99m mebrofenin . Multiple planar imaging of the abdomen were obtained. Findings: There is prompt uptake and excretion of radiotracer by the liver. There is note of radiotracer activity extending through the drain overlying the right side of the abdomen. There is radiotracer seen in the common hepatic duct with no significant extension into the small bowel. There is no evidence of leakage of contrast seen on this exam. Impression: There is no evidence of biliary leak seen on this exam. Dictated by: Dictated on workstation # [id number]
--- NOTE | 2022-11-27 09:58 | Progress Note - Surgery ---
CARMENSHEYLA Shipman 11/27/22 0958: Subjective Date Seen by a Provider: Nov 27, 2022 Time Seen by a Provider: 09:00 Subjective/Events-last exam Pt being followed for intrabdominal abscess c drain following lap heydi c ioc, removal of foreign body, partial omentectomy, and release of internal hernia on 11/11 Pt is sitting in bed comfortably on phone. Family bedside. Pt reports constant, 10/10 crampy, achy abd pain today. Pt also notes that she feels bloated today. Drain contains about 40cc of brown-yellow liquid, output ~ 915 cc since placed yesterday. Pt had a HIDA scan this morning was read as having showed no evidence of biliary leak but there is tracer flowing into drain from bile duct. No jaundice present on physical exam. TB stable at 0.3 and LFTs trending down from yesterday. WBC improved today at 7.5 from 11.3. Pt was febrile yesterday afternoon for about an hour, but resolved after being given tylenol. Currently afebrile, hypotensive and bradycardic at 93/57 and 47, respectively. Pt tolerating clears without issue and states that she would like to progress diet. Pt had multiple non-bloody BMs yesterday. Pt denies CP, SOB, nausea, vomiting, chills, hematuria, and cough. HIDA scan 11/27: Impression: There is no evidence of biliary leak seen on this exam. Review of Systems General: No Chills, No Night Sweats HEENT: No Head Aches, No Eye Pain Pulmonary: No Dyspnea, No Cough Cardiovascular: No: Chest Pain, Palpitations Gastrointestinal: Abdominal Pain (crampy and achy); No: Nausea, Vomiting Genitourinary: No Dysuria, No Hematuria Musculoskeletal: No: neck pain, shoulder pain Neurological: No: Weakness, Numbness Objective Exam Vital Signs Date Time Temp Pulse Resp B/P (MAP) Pulse Ox O2 Delivery O2 Flow Rate FiO2 11/27/22 07:31 36.5 47 18 93/57 (69) 96 Room Air 11/27/22 06:22 Room Air 0.00 11/27/22 03:15 36.6 52 18 103/51 (68) 96 Room Air 11/27/22 00:37 36.6 51 18 101/53 (69) 96 Room Air 4/14/23 20:25 Room Air 11/26/22 19:57 36.6 57 20 103/50 (67) 98 Room Air 11/26/22 15:22 36.5 54 18 92/56 (68) Room Air 11/26/22 12:02 38.5 11/26/22 11:43 38.0 75 16 118/57 (77) 96 Room Air 11/26/22 10:21 37.4 85 16 129/94 (106) 98 Room Air 11/26/22 10:18 37.3 94 16 131/88 (102) 92 Room Air I & O 11/27/22 07:00 Intake Total 1740 ml Output Total 875 ml Balance 865 ml Capillary Refill : General Appearance: No Apparent Distress, WD/WN HEENT: PERRL/EOMI, Moist Mucous Membranes Neck: Non Tender, Supple Respiratory: Lungs Clear, Normal Breath Sounds, No Accessory Muscle Use, No Res piratory Distress Cardiovascular: Regular Rate, Rhythm, No Gallop, No Murmur Peripheral Pulses: 2+ Dorsalis Pedis (R), 2+ Left Dors-Pedis (L) Gastrointestinal: soft, tenderness (ruq), other (incision at umbilicus skin opening does not look infected, healing ridge present; drain placed RUQ containing ~40cc dark brown-yellow liquid) Extremity: Non Tender, No Pedal Edema Neurologic/Psychiatric: Alert, Oriented x3 Skin: Normal Color, Warm/Dry Results Lab Laboratory Tests 11/27/22 04:32: White Blood Count 7.5, Red Blood Count 3.21L, Hemoglobin 9.7L, Hematocrit 29L, Mean Corpuscular Volume 91, Mean Corpuscular Hemoglobin 30, Mean Corpuscular Hemoglobin Concent 33, Red Cell Distribution Width 12.1, Platelet Count 289, Mean Platelet Volume 10.1, Sodium Level 140, Potassium Level 3.2L, Chloride Level 106, Carbon Dioxide Level 23, Anion Gap 11, Blood Urea Nitrogen < 2L, Creatinine 0.61, Estimat Glomerular Filtration Rate 122, BUN/Creatinine Ratio 3, Glucose Level 91, Calcium Level 8.5, Corrected Calcium 9.5, Total Bilirubin 0.3, Aspartate Amino Transf (AST/SGOT) 85H, Alanine Aminotransferase (ALT/SGPT) 115H, Alkaline Phosphatase 147H, Total Protein 5.3L, Albumin 2.7L, Vancomycin Level Trough 5.6L Microbiology 11/26/22 Gram Stain, Resulted Pending 11/26/22 Anaerobic Culture, Resulted Pending 11/26/22 Surgical Culture - Preliminary, Resulted Gram Negative [place] 11/26/22 Fungal Culture 1, Resulted Pending Radiology Date of Exam:11/27/22 HEPATOBILIARY WITHOUT EJECTION CLINICAL INDICATIONS: Patient with sepsis/abdominal abscess. Gallbladder removed on 11/11/2022. Drain put on an abscess on 11/26/2022. Evaluate for biliary leak. Comparison: Nuclear medicine HIDA study dated 11/17/2022. Procedure: The patient was administered 5.5 millicuries of technetium 99m mebrofenin . Multiple planar imaging of the abdomen were obtained. Findings: There is prompt uptake and excretion of radiotracer by the liver. There is note of radiotracer activity extending through the drain overlying the right side of the abdomen. There is radiotracer seen in the common hepatic duct with no significant extension into the small bowel. There is no evidence of leakage of contrast seen on this exam. Impression: There is no evidence of biliary leak seen on this exam. Dictated on workstation # [id number] Dict: 11/27/22 0937 Trans: 11/27/22 0950 [facility] [id number] Interpreted by: DONALD RODRIGUEZ MD Electronically signed by: Assessment/Plan Assessment/Plan Assessment/Plan S/P lap heydi c ioc, removal of foreign body, partial omentectomy, and release of internal hernia on 11/11 intrabdominal abscess c drain placement ruq abdominal pain leukocytosis-resolced Fever history of mini gastric bypass IV Fluids @125 IV Zosyn and Vanc Concern for possible bile duct leak. HIDA showed evidence of tracer fluid draining from biliary duct to drain and bilious fluid in drain on exam. May need possible transfer for ERCP, NPO Continue pain medication prn Abscess culture resulted gram neg milan, all other cultures still pending. Continue IV Zosyn and Vanc Umbilical incision does not show signs of infection, is intact and dry without purulent drainage or erythema. Skin slightly open from probable seroma STEPHEN LAL DO 11/28/22 1042: Subjective Subjective/Events-last exam Patient Still with abdominal pain in the RUQ. WBC improved. Afrebrile. Tolerating clears. Denies n/v fever sweats chills shortness of breath or chest pain. Patient with HIDA scan today with radiotracer in the drain tubing which is indicative of a leak. Objective Exam General Appearance: No Apparent Distress, WD/WN HEENT: PERRL/EOMI, Normal ENT Inspection Neck: Normal Inspection, Non Tender, Supple Respiratory: Chest Non Tender, No Accessory Muscle Use, No Respiratory Distress Cardiovascular: No JVD, Bradycardia Gastrointestinal: soft, tenderness (ruq), other (incision at umbilicus skin opening does not look infected, healing ridge present; drain placed RUQ containing bilous drainage) Extremity: Normal Inspection, Non Tender Neurologic/Psychiatric: Alert, Oriented x3 Skin: Normal Color, Warm/Dry Lymphatic: No Adenopathy Assessment/Plan Assessment/Plan Assessment/Plan S/P lap heydi c ioc, removal of foreign body, partial omentectomy, and release of internal hernia on 11/11 intrabdominal abscess c drain placement ruq abdominal pain leukocytosis-resolced Fever history of mini gastric bypass biliary leak IV Fluids @125 IV Zosyn and Vanc Concern for possible bile duct leak. HIDA showed evidence of radiotracer into the to drain. Also bilious appearing fluid in drain on exam. Discussed need for intervention not available at our hospital. Patient and family explained all findings and plan. I called [facility] transfer for need of hepatobiliary surgery Abscess culture resulted gram neg milan, all other cultures still pending. Continue IV Zosyn and Vanc Umbilical incision does not show signs of infection, is intact and dry without purulent drainage or erythema. Skin slightly open from probable seroma [facility] accepted for transfer, transportation trying to be arranged. All EMS services declined transfer, and weather is prohibiting air transfer. Patient and family did not want to wait and elected to drive themselves for transfer. They demonstrated complete understanding of all risks and benefits. Supervisory-Addendum Brief Verification & Attestation Participated in pt care: history, MDM, physical Personally performed: exam, history, MDM, supervision of care Care discussed with: Medical Student Procedures: n/a Results interpretation: Verified all documentation Verification and Attestation of Medical Student E/M Service A medical student performed and documented this service in my presence. I reviewed and verified all information documented by the medical student and made modifications to such information, when appropriate. I personally performed the physical exam and medical decision making. Stephen Lal, Nov 27, 2022,16:42 SHEYLA RIVAS Nov 27, 2022 09:58 STEPHEN LAL DO Nov 28, 2022 10:42
[2022-11-27 11:23] VITALS: BP 91/56
[2022-11-27] MEDS ORDERED: VANCOMYCIN 1 GM/NS 250 ML IVPB IV SCH ×2 (14:00)
[2022-11-28] MEDS ORDERED: TROUGH ORDER-PHARMACY XX NR (13:00)
== END 2022-11-27 14:42 | disposition home or self-care (01) | DRG 862 ==
LOC: 4TH 15:05
PROVIDERS: ADMIT Surgery; ATTEND Surgery
PROC: 0W9G30Z Drainage of Peritoneal Cavity with Drainage Device, Percutaneous Approach (ICD-10-PCS; principal; 2022-11-25)
DX: T81.40XA Infection following a procedure, unspecified, initial encounter (principal); A41.9 Sepsis, unspecified organism; K65.1 Peritoneal abscess; R00.1 Bradycardia, unspecified; Z90.49 Acquired absence of other specified parts of digestive tract; F41.9 Anxiety disorder, unspecified; K21.9 Gastro-esophageal reflux disease without esophagitis; Z87.891 Personal history of nicotine dependence; Z98.84 Bariatric surgery status
CPT/HCPCS: 36415; 77012; 78226; 80048; 80053; 80202; 85027; 85610; 87070; 87075; 87077; 87101; 87205; 99156